=== PATIENT | male | born 1980 | race Caucasian/White ===

== ENCOUNTER 2017-07-21 12:43 | Emergency (ER) | payer OTHER, SELFPAY ==
--- NOTE | 2017-07-21 14:34 | ER ---
Nurse's Notes [facility] Name: Tyree Nicole Age: 37 yrs Sex: Male : 1980 Arrival Date: 07/21/2017 Time: 12:45 Bed 23 Private MD: None, None Diagnosis: Dermatitis, unspecified;Unspecified psychosis not due to a substance or known physiological condition Presentation: 07/21 12:56 Presenting complaint: Patient states: "There are worms in my skin. I think it's from aj the beach at [place]." Patient has small sores noted to bilateral forearms. Transition of care: patient was not received from another setting of care. Onset of symptoms was July 21, 2017. Risk Assessment: Do you want to hurt yourself or someone else? Patient reports no desire to harm self or others. Initial Sepsis Screen: Does the patient meet any 2 criteria? No. Patient's initial sepsis screen is negative. Does the patient have a suspected source of infection? No. Patient's initial sepsis screen is negative. Care prior to arrival: None. 12:56 Method Of Arrival: Ambulatory 12:56 Acuity: ANDREW 5 Triage Assessment: 12:57 General: Appears in no apparent distress. comfortable, Behavior is anxious. Neuro: Level of Consciousness is awake, alert, obeys commands, Oriented to person, place, time, situation, Appropriate for age. Respiratory: Airway is patent Respiratory effort is even, unlabored, Respiratory pattern is regular, symmetrical. Derm: Skin is intact, is healthy with good turgor, Skin is pink, warm \\T\\ dry. normal. Historical: - Allergies: 12:57 No Known Allergies; aj - Home Meds: 12:57 None [Active]; aj - PMHx: 12:57 Hepatitis; - PSHx: 12:57 None; aj - Immunization history:: Last tetanus immunization: unknown. - Social history:: Smoking status: Patient uses tobacco products, smokes two packs cigarettes per day. Patient uses street drugs, marijuana, Methamphetamine (Meth) Patient uses street drugs, IV drugs, heroin. - Ebola Screening: : Patient negative for fever greater than or equal to 101.5 degrees Fahrenheit, and additional compatible Ebola Virus Disease symptoms Patient denies exposure to infectious person Patient denies travel to an Ebola-affected area in the 21 days before illness onset No symptoms or risks identified at this time. Screenin:32 Abuse screen: Denies threats or abuse. Denies injuries from another. Nutritional aj1 screening: No deficits noted. Tuberculosis screening: No symptoms or risk factors identified. Fall Risk None identified. Assessment: 14:32 General: Appears in no apparent distress. uncomfortable, Behavior is cooperative, aj1 anxious. Pain: Complains of pain in right arm, left arm, right leg and left leg Pain currently is 8 out of 10 on a pain scale. Neuro: Level of Consciousness is awake, alert, obeys commands, Oriented to person, place, time, situation, Speech is normal, Facial symmetry appears normal. Cardiovascular: Patient's skin is warm and dry. Respiratory: Airway is patent Respiratory effort is even, unlabored, Respiratory pattern is regular, symmetrical. GI: No signs and/or symptoms were reported involving the gastrointestinal system. : No signs and/or symptoms were reported regarding the genitourinary system. EENT: No signs and/or symptoms were reported regarding the EENT system. Derm: multiple small wounds to bilateral arms and legs. Patient states that he has worms coming out of the sores. Musculoskeletal: No signs and/or symptoms reported regarding the musculoskeletal system. Circulation, motion, and sensation intact. Vital Signs: 12:57 BP 131 / 91; Pulse 101; Resp 16; Temp 98.4; Pulse Ox 97% on R/A; Weight 77.11 kg; aj Height 5 ft. 7 in. (170.18 cm); 12:57 Body Mass Index 26.63 (77.11 kg, 170.18 cm) aj ED Course: 12:45 Patient arrived in ED. sb2 12:45 None, None is Private Physician. sb2 12:57 Triage completed. aj 12:57 Arm band placed on left wrist. Patient placed in waiting room, Patient notified of wait aj time. 14:10 April Garcia, JAE is Primary Nurse. aj1 14:15 Jluis Lezama MD is Attending Physician. 14:32 Patient has correct armband on for positive identification. Bed in low position. Call aj1 light in reach. Side rails up X 1. 14:32 No provider procedures requiring assistance completed. aj1 Administered Medications: No medications were administered Outcome: 14:34 Discharge ordered by . 14:37 Discharged to home ambulatory. aj1 14:37 Condition: good 14:37 Discharge instructions given to no one, patient left prior to receiving discharge instructions. Dr. Lezama states he gave patient verbal discharge instructions 14:38 Patient left the ED. aj1 Signatures: April Garcia RN RN Haylie Bartlett RN RN aj Starr, Gregory, MD MD gs Billeau, Sheri 2
[2017-07-21 14:42] VITALS: BP 131/91; TEMP 98.4; O2SAT 97
--- NOTE | 2017-07-22 14:39 | EDPHYS ---
Physician Documentation [facility] Name: Tyree Nicole Age: 37 yrs Sex: Male : 1980 Arrival Date: 07/21/2017 Time: 12:45 Bed 23 Private MD: None, None ED Physician Jluis Lezama HPI: 07/21 14:38 This 37 yrs old Male presents to ER via Ambulatory with complaints of Psych gs Problem. 14:38 The patient presents to the emergency department with paranoia, psychosis, has gs delusions. Onset: The symptoms/episode began/occurred at an unknown time. Associated signs and symptoms: Pertinent negatives: abdominal pain, hallucinations, homicidal ideation, suicide ideation. Severity of symptoms: At their worst the symptoms were moderate in the emergency department the symptoms are unchanged. The patient has experienced similar episodes in the past, a few times. HAS LESIONS ON ARMS SMALL SCABS BOTH FOREARMS. PT INSISTS THERE ARE ORGANISMS CRAWLING OUT OF THE NOT CURRENTLY BUT YESTERDAY AND IN PAST. USED FORECEP BY HIMSELF DIGGING AT SCABS NO ORGANISMS NOTED. Historical: - Allergies: 12:57 No Known Allergies; aj - Home Meds: 12:57 None [Active]; aj - PMHx: 12:57 Hepatitis; aj - PSHx: 12:57 None; aj - Immunization history:: Last tetanus immunization: unknown. - Social history:: Smoking status: Patient uses tobacco products, smokes two packs cigarettes per day. Patient uses street drugs, marijuana, Methamphetamine (Meth) Patient uses street drugs, IV drugs, heroin. - Ebola Screening: : Patient negative for fever greater than or equal to 101.5 degrees Fahrenheit, and additional compatible Ebola Virus Disease symptoms Patient denies exposure to infectious person Patient denies travel to an Ebola-affected area in the 21 days before illness onset No symptoms or risks identified at this time. ROS: 14:38 All other systems are negative. gs Exam: 14:38 Head/Face: Normocephalic, atraumatic. Eyes: Pupils equal round and reactive to light, gs extra-ocular motions intact. Lids and lashes normal. Conjunctiva and sclera are non-icteric and not injected. Cornea within normal limits. Periorbital areas with no swelling, redness, or edema. ENT: Nares patent. No nasal discharge, no septal abnormalities noted. Tympanic membranes are normal and external auditory canals are clear. Oropharynx with no redness, swelling, or masses, exudates, or evidence of obstruction, uvula midline. Mucous membranes moist. Neck: Trachea midline, no thyromegaly or masses palpated, and no cervical lymphadenopathy. Supple, full range of motion without nuchal rigidity, or vertebral point tenderness. No Meningismus. Chest/axilla: Normal chest wall appearance and motion. Nontender with no deformity. No lesions are appreciated. Cardiovascular: Regular rate and rhythm with a normal S1 and S2. No gallops, murmurs, or rubs. Normal PMI, no JVD. No pulse deficits. Respiratory: Lungs have equal breath sounds bilaterally, clear to auscultation and percussion. No rales, rhonchi or wheezes noted. No increased work of breathing, no retractions or nasal flaring. Abdomen/GI: Soft, non-tender, with normal bowel sounds. No distension or tympany. No guarding or rebound. No evidence of tenderness throughout. Back: No spinal tenderness. No costovertebral tenderness. Full range of motion. MS/ Extremity: Pulses equal, no cyanosis. Neurovascular intact. Full, normal range of motion. Neuro: Awake and alert, GCS 15, oriented to person, place, time, and situation. Cranial nerves II-XII grossly intact. Motor strength 5/5 in all extremities. Sensory grossly intact. Cerebellar exam normal. Normal gait. 14:38 Constitutional: The patient appears alert, awake. 14:38 Skin: contact dermatitis, CRUSTY, SEVERITY MILD TO FOREARMS AND HANDS. 14:38 Neuro: Orientation: to person, place, time \T\ situation. Mentation: lucid, Motor: moves all fours. 14:38 Psych: Behavior/mood is pleasant, Oriented to person, place, time, Patient has no thoughts/intents to harm self or others. Judgement / Insight is impaired. Delusions/hallucinations are present and described as BUGS UNDER SKIN SINCE HURRICANE. Vital Signs: 12:57 BP 131 / 91; Pulse 101; Resp 16; Temp 98.4; Pulse Ox 97% on R/A; Weight 77.11 kg; aj Height 5 ft. 7 in. (170.18 cm); 12:57 Body Mass Index 26.63 (77.11 kg, 170.18 cm) aj MDM: 14:30 Patient medically screened. gs Administered Medications: No medications were administered Disposition: 07/21/17 14:34 Discharged to Home. Impression: Dermatitis, unspecified, Unspecified psychosis not due to a substance or known physiological condition. - Condition is Stable. - Discharge Instructions: Rash, [id number], Psychosis. - Prescriptions for Triamcinolone Acetonide 0.5 % Topical Cream - apply 1 application by TOPICAL route 2 times per day As needed; 1 tube. - Medication Reconciliation Form, Thank You Letter, Antibiotic Education, Prescription Opioid Use form. - Follow up: Private Physician; When: 2 - 3 days; Reason: Re-evaluation by your physician. Signatures: April Garcia RN RN aj1 Haylie Jules RN RN aj Jluis Lezama MD MD gs Corrections: (The following items were deleted from the chart) 14:38 14:34 07/21/2017 14:34 Discharged to Home. Impression: Dermatitis, unspecified; aj1 Unspecified psychosis not due to a substance or known physiological condition. Condition is Stable. Forms are Medication Reconciliation Form, Thank You Letter, Antibiotic Education, Prescription Opioid Use. Follow up: Private Physician; When: 2 - 3 days; Reason: Re-evaluation by your physician. gs
== END 2017-07-21 14:38 | disposition home or self-care (01) ==
LOC: ER 12:43
DX: L30.9 Dermatitis, unspecified (principal)
CPT/HCPCS: 99281

== ENCOUNTER 2019-03-30 20:03 | Emergency (ER) | payer SELFPAY ==
--- OUTSIDE RECORDS SUMMARY | 2019-03-30 20:06 | XMS REPORT ---
:1980 [facility] Address [address] [place] [address] Dr. Devlin [address] [place] [id number] Care Team Providers Name Role Phone Unavailable Unavailable Unavailable Problems This patient has no known problems. Allergies, Adverse Reactions, Alerts This patient has no known allergies or adverse reactions. Medications This patient has no known medications.
[2019-03-30] MEDS ORDERED: DIPHENHYDRAMINE 50 MG/ML VIAL ONE (20:19)
[2019-03-30] MEDS ORDERED: NA CHLORIDE 0.9% 1,000 ML ONE ×2 (20:20→22:01)
[2019-03-30] MEDS ORDERED: ZIPRASIDONE MESYLA 20 MG/VIAL IM ONE (20:20)
[2019-03-30] MEDS ORDERED: WATER FOR INJ,STERILE 10 ML ONE (20:21)
[2019-03-30 20:39] LABS: Absolute Lymphocytes (CBC) 1.3 K/uL (0.7-4.9); Basophils % 0.4 % (0-1.3); Hematocrit 44.8 % (39.6-49.0); Lymphocytes % 12.4 % (15.3-44.8); MPV 8.7 fL (7.6-11.3); RBC Red Blood Cell Count 4.91 M/uL (4.33-5.43)
[2019-03-30 20:44] LABS: Protime INR 1.17
[2019-03-30 20:50] LABS: AST/SGOT 203 U/L (15-37); Albumin 4.1 g/dL (3.4-5.0); Alkaline Phosphatase 129 U/L (45-117); BUN Blood Urea Nitrogen 25 mg/dL (7-18); Bicarbonate 26 mmol/L (21-32); Bilirubin Direct 0.4 mg/dL (0-0.2); Bilirubin Total 1.3 mg/dL (0.2-1.0); Glucose Level 82 mg/dL (74-106); Potassium 4.4 mmol/L (3.5-5.1); Protein, Total 8.2 g/dL (6.4-8.2); Sodium Level 140 mmol/L (136-145)
[2019-03-30 20:54] LABS: ALT/SGPT 303 U/L (12-78)
[2019-03-30] MEDS ORDERED: LORazepam 2 MG/ML VIAL ONE (20:59)
[2019-03-31 00:13] LABS: Lipase 45 U/L (73-393)
[2019-03-31] MEDS ORDERED: NA CHLORIDE 0.9% 1,000 ML ONE ×3 (00:46→07:20)
[2019-03-31 04:57] LABS: Barbiturates NEGATIVE (NEGATIVE); Benzodiazepines NEGATIVE (NEGATIVE); Cocaine NEGATIVE (NEGATIVE); METHAMPHETAM POSITIVE (NEGATIVE); Methadone NEGATIVE (NEGATIVE); Opiates NEGATIVE (NEGATIVE); Phencyclidine NEGATIVE (NEGATIVE); THC Cannibis POSITIVE (NEGATIVE)
--- NOTE | 2019-03-31 06:25 | EKG ---
Test Date: 2019-03-30 Test Time: 20:08:23 Schedule Hanger: KATTY MEASUREMENT RESULTS: Intervals: Rate: 123 SC: 132 QRSD: 76 QT: 286 QTc: 409 [place]: P: 71 SC: 132 QRS: -37 T: 55 INTERPRETIVE STATEMENTS: Sinus tachycardia Left axis deviation Low voltage QRS Abnormal ECG Compared to ECG 10/24/2011 14:01:11 Left-axis deviation now present Low QRS voltage now present Sinus rhythm no longer present Electronically Signed On 03-31-19 06:24:39 TORPEDO WORKER by Nik Dietrich
--- NOTE | 2019-03-31 08:36 | ER ---
Nurse's Notes [facility] Name: Tyree Nicole Age: 38 yrs Sex: Male : 1980 Arrival Date: 03/30/2019 Time: 20:05 Bed 7 Private MD: Diagnosis: Drug abuse counseling and surveillance;Adverse effect of amphetamines Presentation: 03/30 20:05 Presenting complaint: EMS states: they were toned out by [facility] Department for bb report of pt under the influence of unknown substance pt was found in someone's yard and that person called the PD who then called EMS pt was brought to ED handcuffed with no officer in attendance. EMS reports "pt is not in (police) custody". Transition of care: patient was not received from another setting of care. Onset of symptoms was March 30, 2019. Risk Assessment: Do you want to hurt yourself or someone else? Unable to obtain. Initial Sepsis Screen: Does the patient meet any 2 criteria? No. Patient's initial sepsis screen is negative. Does the patient have a suspected source of infection? No. Patient's initial sepsis screen is negative. Care prior to arrival: None. 20:05 Method Of Arrival: EMS: [facility] bb 20:05 Acuity: ANDREW 2 bb Historical: - Allergies: 20:12 Unable to obtain; bb - Home Meds: 20:12 Unable to obtain [Active]; bb - PMHx: 20:12 Hepatitis; bb - PSHx: 20:12 Unable to obtain; bb - Immunization history:: Adult Immunizations unknown. - Coronavirus screen:: The patient has NOT traveled to [place], [place], or [place] in the past 14 days. Proceed with normal triage process as indicated. - Social history:: Smoking status: unknown Patient uses street drugs. - Ebola Screening: : No symptoms or risks identified at this time. Screenin:34 Abuse screen: Denies threats or abuse. Nutritional screening: No deficits noted. ea Tuberculosis screening: No symptoms or risk factors identified. Fall Risk IV access (20 points). Assessment: 20:29 General: Appears uncomfortable, unkempt, Behavior is anxious, restless. Pain: Complains ea of pain in umbilical area, right lower quadrant and left lower quadrant. Neuro: Level of Consciousness is awake, alert, Oriented to person. Cardiovascular: Patient's skin is warm and dry. Respiratory: Airway is patent Respiratory effort is even, unlabored, Respiratory pattern is regular, symmetrical. Derm: Skin is pink, warm \\T\\ dry. 21:55 Reassessment: Patient and/or family updated on plan of care and expected duration. Pain ea level reassessed. Pt resting with eyes closed, respirations even and unlabored, chest expansions even and symmetrical. No s/s of pain or discomfort noted at this time. 22:21 Reassessment: Patient and/or family updated on plan of care and expected duration. Pain ea level reassessed. Pt resting with eyes closed, respirations even and unlabored. Chest expansions even and symmetrical. No s/s of pain or discomfort noted at this time. Pt returned from CT. 23:13 Reassessment: Patient and/or family updated on plan of care and expected duration. Pain ea level reassessed. Pt resting with eyes closed, respirations even and unlabored. Chest expansions even and symmetrical. No s/s of pain or discomfort noted at this time. 03/31 00:20 Reassessment: Patient and/or family updated on plan of care and expected duration. Pain ea level reassessed. Pt resting with eyes closed, respirations even and unlabored. Chest expansions even and symmetrical. No s/s of pain or discomfort noted at this time. 01:42 Reassessment: Patient and/or family updated on plan of care and expected duration. Pain ea level reassessed. Pt resting with eyes closed, respirations even and unlabored. Chest expansions even and symmetrical. No s/s of pain or discomfort at this time. 02:56 Reassessment: Patient and/or family updated on plan of care and expected duration. Pain ea level reassessed. Pt resting with eyes closed, respirations even and unlabored, chest expansions even and unlabored. No s/s of pain or discomfort noted at this time. 03:45 Reassessment: Patient and/or family updated on plan of care and expected duration. Pain ea level reassessed. Pt resting with eyes closed, respirations even and unlabored. Chest expansions even and symmetrical. no s/s of pain or discomfort noted at this time. 04:33 Reassessment: Patient and/or family updated on plan of care and expected duration. Pain ea level reassessed. Patient is alert, oriented x 3, equal unlabored respirations, skin warm/dry/pink. Patient states feeling better. 05:26 Reassessment: Patient and/or family updated on plan of care and expected duration. Pain ea level reassessed. Patient is alert, oriented x 3, equal unlabored respirations, skin warm/dry/pink. 06:39 Reassessment: Patient and/or family updated on plan of care and expected duration. Pain ea level reassessed. Patient is alert, oriented x 3, equal unlabored respirations, skin warm/dry/pink. Patient states feeling better. 07:19 Reassessment: Patient appears in no apparent distress at this time. Pt asleep w/ even ph and unlabored respirations, VSS, additional IV fluids given per ERP order, see MAR. Vital Signs: 03/30 20:12 BP 109 / 88; Pulse 144; Resp 20 S; Pulse Ox 98% on R/A; Weight 88.45 kg (R); bb 21:23 BP 115 / 70; Pulse 116; Resp 20; Pulse Ox 95% on R/A; ea 22:23 BP 117 / 76; Pulse 106; Resp 16; Temp 97.8; Pulse Ox 95% on R/A; ea 23:14 BP 96 / 70; Pulse 104; Resp 17; Pulse Ox 95% on R/A; ea 03/31 00:21 BP 103 / 61; Pulse 97; Resp 18; Pulse Ox 97% ; ea 01:41 BP 101 / 74; Pulse 92; Resp 18; Pulse Ox 99% on R/A; ea 02:57 BP 110 / 95; Pulse 69; Resp 18; Pulse Ox 100% on R/A; ea 03:44 BP 110 / 65; Pulse 95; Resp 16; Pulse Ox 97% on R/A; ea 04:06 BP 113 / 72; Pulse 94; Resp 18; Pulse Ox 100% ; ea 04:33 BP 114 / 83; Pulse 79; Resp 18; Pulse Ox 99% on R/A; ea 05:25 BP 123 / 84; Pulse 80; Resp 18; Temp 98; Pulse Ox 100% on R/A; ea 06:39 BP 109 / 59; Pulse 106; Resp 16; Pulse Ox 100% ; ea 07:20 BP 104 / 59; Pulse 107; Resp 24; Pulse Ox 100% on R/A; ph ED Course: 03/30 20:05 Patient arrived in ED. bb 20:08 Dorian Kelly PA is PHCP. cp 20:08 Andrés Copeland MD is Attending Physician. cp 20:10 Patient has correct armband on for positive identification. Placed in gown. Bed in low rr5 position. breaker up on. Pulse ox on. NIBP on. 20:10 Inserted saline lock: 20 gauge in left forearm, using aseptic technique. Blood rr5 collected. 20:12 Triage completed. bb 20:12 Arm band placed on Patient placed in an exam room, on a stretcher, on diagnostic sales specialist, bb on pulse oximetry. EKG completed in triage. Results shown to MD. 20:14 Tami Parkinson, JAE is Primary Nurse. ea 20:15 Inserted saline lock: 20 gauge in right forearm, using aseptic technique. ,using rr5 aseptic technique. inserted by Tami Spicer. 22:15 CT completed. Patient tolerated procedure well. Patient moved back from CT. bq 22:40 Abdomen In Process Unspecified. EDMS Administered Medications: 20:13 Drug: Ativan 2 mg Route: IM; Site: right deltoid; bb 20:38 Follow up: Response: No adverse reaction ea 20:22 Drug: NS 0.9% 1000 ml Route: IV; Rate: 1 bolus; Site: left forearm; ea 21:38 Follow up: Response: No adverse reaction; IV Status: Completed infusion; IV Intake: ea 1000ml 20:29 Drug: Geodon 10 mg Route: IM; Site: left deltoid; ea 21:38 Follow up: Response: No adverse reaction ea 20:29 Drug: Benadryl 25 mg Route: IM; Site: left deltoid; ea 21:38 Follow up: Response: No adverse reaction ea 21:59 Drug: NS 0.9% 1000 ml Route: IV; Rate: 1 bolus; Site: left forearm; ea 23:16 Follow up: Response: No adverse reaction; IV Status: Completed infusion; IV Intake: ea 1000ml 03/31 00:00 Drug: NS 0.9% 1000 ml Route: IV; Rate: 500 ml/hr; Site: left forearm; ea 00:44 Drug: NS 0.9% 1000 ml Route: IV; Rate: 100 ml/hr; Site: right forearm; rr5 Intake: 03/30 21:38 IV: 1000ml; Total: 1000ml. ea 23:16 IV: 1000ml; Total: 2000ml. evelyne Outcome: 03/31 08:34 Discharge ordered by . rn 09:24 Patient left the ED. ph Signatures: Dispatcher [employer] EDAimee Chow Brenda, RN RN Kaz Encarnacion MD MD rn Hall, Patricia, RN RN Dorian Langston PA PA cp Antunez, Elena, RN RN ea Roque, Raymond RN RN rr5 Corrections: (The following items were deleted from the chart) 03/30 20:19 20:17 Abuse screen: rr5 rr5 03/31 05:26 05:25 BP 238 / 4; Pulse 80bpm; Resp 18bpm; Pulse Ox 100% RA; Temp 98F; evelyne stubbs
--- NOTE | 2019-03-31 08:37 | EDPHYS ---
Physician Documentation [facility] Name: Tyree Nicole Age: 38 yrs Sex: Male : 1980 Arrival Date: 03/30/2019 Time: 20:05 Bed 7 Private MD: ED Physician Andrés Copeland HPI: 03/30 20:35 This 38 yrs old Male presents to ER via EMS with complaints of Drug Abuse. cp 20:35 The patient presents with confusion. cp 20:35 Possible causes: drug use, amphetamines. Associated signs and symptoms: Pertinent cp positives: abdominal pain, agitation, visual hallucinations, Pertinent negatives: chest pain, headache, vomiting. Current symptoms: In the emergency department the patient's symptoms are unchanged from the initial presentation, despite EMS interventions. 20:35 Patient admits to using methamphetamine today that may have contained PCP. cp Historical: - Allergies: 20:12 Unable to obtain; bb - Home Meds: 20:12 Unable to obtain [Active]; bb - PMHx: 20:12 Hepatitis; bb - PSHx: 20:12 Unable to obtain; bb - Immunization history:: Adult Immunizations unknown. - Coronavirus screen:: The patient has NOT traveled to [place], [place], or [place] in the past 14 days. Proceed with normal triage process as indicated. - Social history:: Smoking status: unknown Patient uses street drugs. - Ebola Screening: : No symptoms or risks identified at this time. ROS: 20:40 Constitutional: Negative for fever, poor PO intake. cp 20:40 Eyes: Negative for injury, pain, redness, and discharge. cp 20:40 Cardiovascular: Negative for chest pain. cp 20:40 Abdomen/GI: Positive for abdominal pain, Negative for vomiting, diarrhea, constipation. 20:40 Neuro: Positive for altered mental status. 20:40 Psych: Positive for visual hallucinations. 20:40 All other systems are negative. cp Exam: 20:15 ECG was reviewed by the Attending Physician. cp 20:45 Constitutional: The patient appears in no acute distress, alert, awake, non-toxic, well cp developed, well nourished. 20:45 Head/Face: Normocephalic, atraumatic. cp 20:45 Eyes: Periorbital structures: appear normal, Pupils: equal, round, and reactive to light and accomodation, Conjunctiva: normal, no exudate, no injection, Sclera: no appreciated abnormality, Lids and lashes: appear normal, bilaterally. 20:45 ENT: External ear(s): are unremarkable, Nose: is normal, Mouth: Lips: moist, Oral mucosa: moist, Posterior pharynx: Airway: no evidence of obstruction, patent. 20:45 Neck: ROM/movement: Meningeal signs: are not present, nuchal rigidity, is not appreciated. 20:45 Chest/axilla: Inspection: normal, Palpation: is normal, no crepitus, no tenderness. 20:45 Cardiovascular: Rate: tachycardic, Rhythm: regular, Edema: is not appreciated, JVD: is not appreciated. 20:45 Respiratory: the patient does not display signs of respiratory distress, Respirations: cp normal, no use of accessory muscles, no retractions, no splinting, no tachypnea, labored breathing, is not present, accessory muscle usage, is absent, Breath sounds: are clear throughout, no decreased breath sounds, no stridor, no wheezing. 20:45 Abdomen/GI: Inspection: abdomen appears normal, Bowel sounds: active, all quadrants, cp Palpation: soft, in all quadrants, moderate abdominal tenderness, in all quadrants, rebound tenderness, is not appreciated, voluntary guarding, is elicited in all quadrants. 20:45 Back: pain, is absent, ROM is normal. 20:45 Neuro: Orientation: to person, Motor: moves all fours, strength is normal. 20:45 Psych: Behavior/mood is aggressive, uncooperative, Affect is animated, Patient has no thoughts/intents to harm self or others. Judgement / Insight is impaired. Delusions/hallucinations are present and described as complaining of insects crawling on him. Vital Signs: 20:12 BP 109 / 88; Pulse 144; Resp 20 S; Pulse Ox 98% on R/A; Weight 88.45 kg (R); bb 21:23 BP 115 / 70; Pulse 116; Resp 20; Pulse Ox 95% on R/A; ea 22:23 BP 117 / 76; Pulse 106; Resp 16; Temp 97.8; Pulse Ox 95% on R/A; ea 23:14 BP 96 / 70; Pulse 104; Resp 17; Pulse Ox 95% on R/A; ea 03/31 00:21 BP 103 / 61; Pulse 97; Resp 18; Pulse Ox 97% ; ea 01:41 BP 101 / 74; Pulse 92; Resp 18; Pulse Ox 99% on R/A; ea 02:57 BP 110 / 95; Pulse 69; Resp 18; Pulse Ox 100% on R/A; ea 03:44 BP 110 / 65; Pulse 95; Resp 16; Pulse Ox 97% on R/A; ea 04:06 BP 113 / 72; Pulse 94; Resp 18; Pulse Ox 100% ; ea 04:33 BP 114 / 83; Pulse 79; Resp 18; Pulse Ox 99% on R/A; ea 05:25 BP 123 / 84; Pulse 80; Resp 18; Temp 98; Pulse Ox 100% on R/A; ea 06:39 BP 109 / 59; Pulse 106; Resp 16; Pulse Ox 100% ; ea 07:20 BP 104 / 59; Pulse 107; Resp 24; Pulse Ox 100% on R/A; ph MDM: 03/30 20:10 Patient medically screened. cp 03/31 08:30 Differential Diagnosis: electrolyte abnormality, alcohol intoxication, overdose, volume rn depletion. Data reviewed: vital signs, nurses notes, lab test result(s), EKG, and as a result, I will discharge patient. Counseling: I had a detailed discussion with the patient and/or guardian regarding: the historical points, exam findings, and any diagnostic results supporting the discharge/admit diagnosis, lab results, the need for outpatient follow up, to return to the emergency department if symptoms worsen or persist or if there are any questions or concerns that arise at home. Response to treatment: the patient's symptoms have markedly improved after treatment. ED course: Pt awake and sober, is asking for food, states feels much better, admits to using drugs last night, denies pain, denies suicidal or homicidal ideation. Will dc home. . 03/30 20:09 Order name: Acetaminophen; Complete Time: 00:34 cp 03/30 20:09 Order name: Basic Metabolic Panel; Complete Time: 00:34 cp 03/30 21:46 Interpretation: Normal except: BUN 25; CRE 1.63; GFR 48. cp 03/30 20:09 Order name: CBC with Diff; Complete Time: 21:45 cp 03/30 21:46 Interpretation: Normal except: PLT 143; BECK% 75.5; LYM% 12.4. cp 03/30 20:09 Order name: ETOH Level; Complete Time: 21:44 cp 03/30 20:09 Order name: Hepatic Function; Complete Time: 00:34 cp 02 21:46 Interpretation: Normal except: AST 203; ALT 303; ALK 129; BILIT 1.3; BILID 0.4; GLOB cp 4.1; A/G 1.0. 02 20:09 Order name: PT-INR; Complete Time: 21:44 cp 03/30 20:09 Order name: Ptt, Activated; Complete Time: 21:44 cp 03/30 20:09 Order name: Salicylate; Complete Time: 21:44 cp 02 20:09 Order name: Urine Drug Screen; Complete Time: 07:12 cp 02/ 20:19 Order name: Glucose, Ancillary Testing; Complete Time: 21:44 EDMS 02 21:55 Order name: Abdomen EDMS 0208 23:46 Order name: Lipase; Complete Time: 00:34 EDMS 02 00:38 Interpretation: LIP 45; Reviewed. cp 03/30 20:09 Order name: EKG; Complete Time: 20:11 cp 03/30 20:09 Order name: EKG - Nurse/Tech; Complete Time: 20:18 cp 03/30 20:09 Order name: IV Saline Lock; Complete Time: 20:18 cp 03/30 20:09 Order name: Labs collected and sent; Complete Time: 20:18 cp 03/30 20:09 Order name: Urine Dipstick-Ancillary (obtain specimen); Complete Time: 04:24 cp EC/08 20:15 Rate is 123 beats/min. Rhythm is regular. CT interval is normal. QRS interval is cp normal. QT interval is normal. Interpreted by me. Reviewed by me. Administered Medications: 20:13 Drug: Ativan 2 mg Route: IM; Site: right deltoid; bb 20:38 Follow up: Response: No adverse reaction ea 20:22 Drug: NS 0.9% 1000 ml Route: IV; Rate: 1 bolus; Site: left forearm; ea 21:38 Follow up: Response: No adverse reaction; IV Status: Completed infusion; IV Intake: ea 1000ml 20:29 Drug: Geodon 10 mg Route: IM; Site: left deltoid; ea 21:38 Follow up: Response: No adverse reaction ea 20:29 Drug: Benadryl 25 mg Route: IM; Site: left deltoid; ea 21:38 Follow up: Response: No adverse reaction ea 21:59 Drug: NS 0.9% 1000 ml Route: IV; Rate: 1 bolus; Site: left forearm; ea 23:16 Follow up: Response: No adverse reaction; IV Status: Completed infusion; IV Intake: ea 1000ml 03/31 00:00 Drug: NS 0.9% 1000 ml Route: IV; Rate: 500 ml/hr; Site: left forearm; ea 00:44 Drug: NS 0.9% 1000 ml Route: IV; Rate: 100 ml/hr; Site: right forearm; rr5 Disposition: 04/01 07:21 Co-signature as Attending Physician, Andrés Copeland MD I agree with the assessment and tw4 plan of care. Disposition: 03/31/19 08:34 Discharged to Home. Impression: Drug abuse counseling and surveillance, Adverse effect of amphetamines. - Condition is Stable. - Discharge Instructions: Stimulant Use Disorder-Methamphetamines. - Medication Reconciliation Form, Thank You Letter, Antibiotic Education, Prescription Opioid Use form. - Follow up: Private Physician; When: As needed; Reason: Recheck today's complaints, Re-evaluation by your physician. - Problem is new. - Symptoms have improved. Signatures: Dispatcher [employer] EDFunmi Desouza, RN RN Kaz Encarnacion MD MD rn Hall, Patricia, RN RN ph Page, Corey, PA PA cp Antunez, Elena, RN RN ea Wadley, Terrence, MD MD tw4 Franko Spencer RN RN rr5 Corrections: (The following items were deleted from the chart) 03/30 21:55 21:48 Abdomen Pelvis W Con+CT.RAD.BRZ ordered. EDGA EDMS 23:58 23:45 LIPASE+C.LAB.BRZ ordered. EDGA EDGA 03/31 09:24 08:34 03/31/2019 08:34 Discharged to Home. Impression: Drug abuse counseling and ph surveillance; Adverse effect of amphetamines. Condition is Stable. Forms are Medication Reconciliation Form, Thank You Letter, Antibiotic Education, Prescription Opioid Use. Follow up: Private Physician; When: As needed; Reason: Recheck today's complaints, Re-evaluation by your physician. Problem is new. Symptoms have improved. rn
[2019-03-31 09:46] VITALS: TEMP 98; O2SAT 100
[2019-03-31 09:48] VITALS: BP 104/59
--- NOTE | 2019-04-01 10:32 | RAD REPORT ---
EXAM DESCRIPTION: Abdomen Pelvis Wo Contrast CLINICAL HISTORY: 38 years Male ABD PAIN COMPARISON: None. TECHNIQUE: Contiguous axial images obtained through the abdomen and pelvis without IV contrast. Refo rmatted images obtained. This exam was performed according to our department optimization program which includes automated exp osure control, adjustment of the mA and/or kv according to patient size and/or use of iterative recon struction technique. FINDINGS: There is some artifact on the images from motion and from the patient's overlying arms. Dependent atelectatic changes. The liver appears unremarkable. The spleen is mildly prominent measuring approximately 13.5 cm in length. The pancreas appears unremarkable. No adrenal masses. There are nonobstructing lower pole right renal calculi. No hydronephrosis or ureteral calculi. The gallbladder is visualized. No aneurysmal dilatation of the aorta. The rectum is slightly distended with stool. No bowel obstruction. The appendix is not visualized sec ondary to previous appendectomy. No significant free pelvic fluid. IMPRESSION: The rectum is slightly distended with stool which could be from constipation. There are nonobstructing lower pole right renal calculi. No hydronephrosis or ureteral calculi. Mildly prominent spleen. Electronically signed by: Jabari Love MD 03/30/2019 10:58 PM COMMUNITY RELATIONS REPRESENTATIVE Due to temporary technical issues with the PACS/Fluency reporting system, reports are being signed by the in house radiologist as a courtesy to ensure prompt reporting. The interpreting radiologist is f ully responsible for the content of the report.
== END 2019-03-31 09:24 | disposition home or self-care (01) ==
LOC: ER 20:03
DX: R44.1 Visual hallucinations (principal); T43.625A Adverse effect of amphetamines, initial encounter; Z71.51 Drug abuse counseling and surveillance of drug abuser
CPT/HCPCS: 36415; 74176; 80048; 80076; 80307; 80320; 80329; 82947; 83690; 85025; 85610; 85730; 93005; 96360; 96361; 96372; 99285; J1200; J3486; J7030

== ENCOUNTER 2019-04-02 03:16 | Emergency (ER) | payer SELFPAY ==
--- OUTSIDE RECORDS SUMMARY | 2019-04-02 03:18 | XMS REPORT ---
:1980 [facility] Address [address] [place] [address] Dr. Devlin [address] [place] [id number] Care Team Providers Name Role Phone Unavailable Unavailable Unavailable Problems This patient has no known problems. Allergies, Adverse Reactions, Alerts This patient has no known allergies or adverse reactions. Medications This patient has no known medications.
--- OUTSIDE RECORDS SUMMARY | 2019-04-02 04:31 | XMS REPORT ---
:1980 [facility] Address [address] [place] [address] Dr. Devlin [address] [place] [id number] Care Team Providers Name Role Phone Unavailable Unavailable Unavailable Problems This patient has no known problems. Allergies, Adverse Reactions, Alerts This patient has no known allergies or adverse reactions. Medications This patient has no known medications.
[2019-04-02] MEDS ORDERED: HYDROCODONE/APAP 10/325 TAB ONE (07:39)
[2019-04-02] MEDS ORDERED: TETANUS & DIPHTHERIA TOX,ADULT 0.5 ML VIAL ONE (07:40)
--- NOTE | 2019-04-02 08:48 | EDPHYS ---
Physician Documentation [facility] Name: Tyree Nicole Age: 38 yrs Sex: Male : 1980 Arrival Date: 04/02/2019 Time: 03:24 Bed 2 Private MD: ED Physician Dorian Cobb HPI: 04/02 05:35 This 38 yrs old Male presents to ER via EMS with complaints of agitated tw4 altered mental status. 05:35 The patient presents with agitation, disorientation, to person, to place, to time. tw4 Onset: The symptoms/episode began/occurred today. Possible causes: drug use. Associated signs and symptoms: The patient has no apparent associated signs or symptoms. The patient has not experienced similar symptoms in the past. Historical: - Allergies: 03:36 Unable to obtain; fc - Home Meds: 03:36 Unable to obtain [Active]; fc - PMHx: 03:38 Hepatitis; fc - PSHx: 04/01 21:35 Unable to obtain; fc - Immunization history:: Adult Immunizations unknown. - Coronavirus screen:: The patient has NOT traveled to [place] in the past 14 days. The patient has NOT had contact with known/suspected case of Coronavirus?. - Social history:: Smoking status: unknown. - Ebola Screening: : Unable to complete screening because. ROS: 04/02 05:37 Unable to obtain ROS due to altered mental status. tw4 08:46 Constitutional: Negative for fever, chills, and weight loss, Eyes: Negative for injury, phong pain, redness, and discharge, ENT: Negative for injury, pain, and discharge, Neck: Negative for injury, pain, and swelling, Cardiovascular: Negative for chest pain, palpitations, and edema, Respiratory: Negative for shortness of breath, cough, wheezing, and pleuritic chest pain, Abdomen/GI: Negative for abdominal pain, nausea, vomiting, diarrhea, and constipation, Back: Negative for injury and pain, : Negative for injury, bleeding, discharge, and swelling, Skin: Negative for injury, rash, and discoloration, Neuro: Negative for headache, weakness, numbness, tingling, and seizure, Allergy/Immunology: Negative for hives, rash, and allergies, Endocrine: Negative for neck swelling, polydipsia, polyuria, polyphagia, and marked weight changes, Hematologic/Lymphatic: Negative for swollen nodes, abnormal bleeding, and unusual bruising. 08:46 MS/extremity: Positive for injury or acute deformity, pain, swelling, tenderness, of the medial aspect of right toes, right first toe and Right first toenail. Exam: 05:35 Head/Face: Normocephalic, atraumatic. Chest/axilla: Normal chest wall appearance and tw4 motion. Nontender with no deformity. No lesions are appreciated. Cardiovascular: Regular rate and rhythm with a normal S1 and S2. No gallops, murmurs, or rubs. Normal PMI, no JVD. No pulse deficits. Respiratory: Lungs have equal breath sounds bilaterally, clear to auscultation and percussion. No rales, rhonchi or wheezes noted. No increased work of breathing, no retractions or nasal flaring. Abdomen/GI: Soft, non-tender, with normal bowel sounds. No distension or tympany. No guarding or rebound. No evidence of tenderness throughout. Back: No spinal tenderness. No costovertebral tenderness. Full range of motion. 05:35 Constitutional: The patient appears awake, restless. 05:35 Musculoskeletal/extremity: Extremities: noted in the Left first toenail: abrasion, ROM: intact in all extremities. 05:35 Neuro: Orientation: unable to test, the patient is medicated, Mentation: somnolent, Motor: moves all fours, Sensation: unable to test, the patient is medicated, Gait: not tested. 05:35 Psych: Behavior/mood is aggressive, uncooperative, Affect is Vital Signs: 04/01 21:42 BP 122 / 77; Pulse 130; Resp 18; Temp 101(A); Pulse Ox 97% on R/A; Weight 86.18 kg (R); fc Height 5 ft. 10 in. (177.80 cm) (R); 22:30 BP 110 / 65; Pulse 113; Resp 20; Pulse Ox 97% on R/A; fc 23:30 BP 127 / 74; Pulse 101; Resp 18; Temp 98.0(A); Pulse Ox 98% on R/A; Pain 0/10; fc 04/02 00:55 BP 123 / 76; Pulse 97; Resp 18; Pulse Ox 96% on R/A; Pain 0/10; fc 01:45 BP 132 / 70; Pulse 91; Resp 18; Pulse Ox 98% on R/A; Pain 0/10; fc 02:36 BP 132 / 80; Pulse 92; Resp 16; Temp 98.4(O); Pulse Ox 97% on R/A; Pain 0/10; fc 03:30 BP 101 / 84; Pulse 96; Resp 18; Pulse Ox 97% on R/A; Pain 0/10; aa1 04:15 BP 131 / 66; Pulse 81; Resp 16; Pulse Ox 100% on R/A; Pain 0/10; aa1 05:16 BP 130 / 60; Pulse 81; Resp 16; Temp 98.6; Pulse Ox 97% on R/A; Pain 0/10; aa1 06:15 BP 131 / 66; Pulse 75; Resp 16; Pulse Ox 98% on R/A; Pain 0/10; aa1 09:00 BP 127 / 70; Pulse 72; Resp 16; Temp 98.2; Pulse Ox 98% on R/A; sg 12:00 BP 122 / 62; Pulse 70; Resp 16; Temp 98.2; Pulse Ox 98% on R/A; sg 16:00 BP 116 / 70; Pulse 69; Resp 17; Temp 97.7; Pulse Ox 100% on R/A; sg 02/10 21:42 Body Mass Index 27.26 (86.18 kg, 177.80 cm) fc MDM: 05:33 Patient medically screened. tw4 05:37 Differential Diagnosis: alcohol intoxication, intracranial bleed, overdose. Data tw4 reviewed: vital signs, nurses notes. Counseling: I had a detailed discussion with the patient and/or guardian regarding: the historical points, exam findings, and any diagnostic results supporting the discharge/admit diagnosis. 04/02 05:38 Order name: CT Head Brain wo Cont tw4 04/02 07:31 Order name: Foot Left 3 View XRAY [facility] 04/02 09:10 Order name: RAD EDAK 04/02 09:23 Order name: CT EDAK 04/02 07:30 Order name: Wound Care; Complete Time: 07:36 phong 04/02 07:31 Order name: Diet Regular; Complete Time: 07:33 phong Administered Medications: 07:40 Drug: Tetanus-Diphtheria Toxoid Adult 0.5 ml {Manager Contact: [employer]. Exp: sv 01/18/2021. Lot #: [id number]. } Route: IM; Site: right deltoid; 08:12 Follow up: Response: No adverse reaction sv 07:40 Drug: [place] 10 mg-325 mg 1 tabs {Note: RASS1.} Route: PO; sv 07:41 Drug: Neosporin Ointment 1 application Route: Topical; Site: affected area; sv 15:13 Drug: Motrin 600 mg Route: PO; Disposition: 04/02/19 15:16 Discharged to Home. Impression: Abuse of non-psychoactive substances, Laceration without foreign body, left foot - left great toe. - Condition is Stable. - Medication Reconciliation Form, Thank You Letter, Antibiotic Education, Prescription Opioid Use form. - Follow up: Private Physician; When: 2 - 3 days; Reason: Recheck today's complaints, Continuance of care, Re-evaluation by your physician. Follow up: Dr. Abel Stoll; When: 5 - 6 days; Reason: Recheck today's complaints, Re-evaluation by your physician. - Problem is new. - Symptoms have improved. Signatures: Dispatcher [employer] EDYessica Yuan RN RN sv Gay, Steven, RN RN Dorian Cobb MD MD cha Chretien, Felicia, RN RN Andrés Copeland MD MD tw4 Corrections: (The following items were deleted from the chart) 15:04 08:47 04/02/2019 08:47 Discharged to Home. Impression: Abuse of non-psychoactive ah substances; Laceration without foreign body, left foot - left great toe; Displaced unspecified fracture of left great toe. Condition is Stable. Discharge Instructions: Laceration Care, Adult, Substance Use Disorder, Laceration Care, Adult, [id number], Stimulant Use Disorder-Methamphetamines. Prescriptions for Ibuprofen 600 mg Oral Tablet - take 1 tablet by ORAL route every 6 hours As needed take with food; 20 tablet, Keflex 500 mg Oral Capsule - take 1 capsule by ORAL route every 6 hours for 7 days; 28 capsule. and Forms are Medication Reconciliation Form, Thank You Letter, Antibiotic Education, Prescription Opioid Use. Follow up: Private Physician; When: 2 - 3 days; Reason: Recheck today's complaints, Continuance of care, Re-evaluation by your physician. Follow up: Dr. Abel Stoll; When: 5 - 6 days; Reason: Recheck today's complaints, Re-evaluation by your physician. Problem is new. Symptoms have improved. [facility] 16:58 15:16 04/02/2019 15:16 Discharged to Home. Impression: Abuse of non-psychoactive sg substances; Laceration without foreign body, left foot - left great toe. Condition is Stable. Prescriptions for Ibuprofen 600 mg Oral Tablet - take 1 tablet by ORAL route every 6 hours As needed take with food; 20 tablet, Keflex 500 mg Oral Capsule - take 1 capsule by ORAL route every 6 hours for 7 days; 28 capsule. and Forms are Medication Reconciliation Form, Thank You Letter, Antibiotic Education, Prescription Opioid Use. Follow up: Private Physician; When: 2 - 3 days; Reason: Recheck today's complaints, Continuance of care, Re-evaluation by your physician. Follow up: Dr. Abel Stoll; When: 5 - 6 days; Reason: Recheck today's complaints, Re-evaluation by your physician. Problem is new. Symptoms have improved. [facility]
--- NOTE | 2019-04-02 08:48 | ER ---
Nurse's Notes [facility] Name: Tyree Nicole Age: 38 yrs Sex: Male : 1980 Arrival Date: 04/02/2019 Time: 03:24 Bed 2 Private MD: Diagnosis: Abuse of non-psychoactive substances;Laceration without foreign body, left foot-left great toe Presentation: 04/01 21:35 Presenting complaint: EMS states: pt was found completely naked at a gas station, fc altered and banging his head against the wall. L great toe noted to be bleeding from nailbed. Upon arrival to ED pt awake but no recognizable verbal response. EMS reports pt was combative on scene and was given Versed 5 mg IM and Ketamine 200 mg IM. 21:35 Transition of care: patient was not received from another setting of care. Onset of fc symptoms was April 01, 2019. Risk Assessment: Do you want to hurt yourself or someone else? Unable to obtain. Initial Sepsis Screen: Does the patient meet any 2 criteria? HR > 90 bpm. No. Patient's initial sepsis screen is negative. Does the patient have a suspected source of infection? No. Patient's initial sepsis screen is negative. Care prior to arrival: Medication(s) given: Versed 5 mg IM \T\ Ketamine 200 mg IM IV initiated. 20 GA, in the right forearm, Glucose check: 65. 21:35 Method Of Arrival: EMS: [facility] 21:35 Acuity: ANDREW 2 fc Historical: - Allergies: 04/02 03:36 Unable to obtain; fc - Home Meds: 03:36 Unable to obtain [Active]; fc - PMHx: 03:38 Hepatitis; fc - PSHx: 04/01 21:35 Unable to obtain; fc - Immunization history:: Adult Immunizations unknown. - Coronavirus screen:: The patient has NOT traveled to [place] in the past 14 days. The patient has NOT had contact with known/suspected case of Coronavirus?. - Social history:: Smoking status: unknown. - Ebola Screening: : Unable to complete screening because. Screenin/11 09:00 Abuse screen: Denies threats or abuse. Denies injuries from another. Nutritional sg screening: No deficits noted. Tuberculosis screening: No symptoms or risk factors identified. Never had TB. Fall Risk None identified. Assessment: 03:27 Reassessment: see chart Leonardo Al for all original information and fc who originally charted it along with orders and results. 03:30 Reassessment: Patient appears in no apparent distress at this time. Patient and/or aa1 family updated on plan of care and expected duration. Pain level reassessed. Pt resting quietly; will continue to monitor until appropriate for d/c. Respiratory: Airway is patent Respiratory effort is even, unlabored, Respiratory pattern is regular, symmetrical. Derm: Skin is pink, warm \T\ dry. 04:15 Reassessment: Patient appears in no apparent distress at this time. No changes from aa1 previously documented assessment. Patient and/or family updated on plan of care and expected duration. Pain level reassessed. Pt resting quietly; will continue to monitor. 05:16 Reassessment: Patient appears in no apparent distress at this time. Patient and/or aa1 family updated on plan of care and expected duration. Pain level reassessed. Pt resting quietly; will continue to monitor until appropriate for d/c. 05:16 Reassessment: No changes from previously documented assessment. aa1 06:15 Reassessment: Patient appears in no apparent distress at this time. No changes from aa1 previously documented assessment. Patient and/or family updated on plan of care and expected duration. Pain level reassessed. Pt resting quietly; will continue to monitor until appropriate for d/c. 07:24 Reassessment: Patient appears in no apparent distress at this time. at bedside at this time. 07:39 Reassessment: Patient appears in no apparent distress at this time. xray at bedside. sg 07:41 Reassessment: Xray at the bedside. sv 09:11 Reassessment: Patient appears in no apparent distress at this time. pt to bed sg discharged, pt is unable to perform ADL independently, pt has no transport, will continue to monitor in ED until ready for dispo as ordered. 10:11 Reassessment: Patient appears in no apparent distress at this time. pt laying right sg side lying position with eyes closed, resp even and unlabored, VSS at this time. 13:05 Reassessment: pt requesting to speak with a social worker school to get a list of phone sg numbers for family and friends, pt informed that the family/friends on pt contact sheet have been contacted on his behalf, awaiting call backs from family and friends at this time, pt stated understanding. 13:58 Reassessment: Patient appears in no apparent distress at this time. family attempt to sg be contacted once again, no answer at this time. pt states that he does not feel safe leaving here alone, would like to be able to leave with his aunt Louisa Johansen. 14:35 Reassessment: Patient appears in no apparent distress at this time. pt educated on ss crutch walking, pt to be given a bus pass for transport to his [facility]. 15:00 Reassessment: Patient appears in no apparent distress at this time. reached out to [facility], spoke with Brian, reports the pt is not welcome back at their facility or to use their services until 30 days. Will contact [facility] for pt transport to his aunt, [employer] for cab [id number]. Vital Signs: 04/01 21:42 BP 122 / 77; Pulse 130; Resp 18; Temp 101(A); Pulse Ox 97% on R/A; Weight 86.18 kg (R); fc Height 5 ft. 10 in. (177.80 cm) (R); 22:30 BP 110 / 65; Pulse 113; Resp 20; Pulse Ox 97% on R/A; fc 23:30 BP 127 / 74; Pulse 101; Resp 18; Temp 98.0(A); Pulse Ox 98% on R/A; Pain 0/10; fc 04/02 00:55 BP 123 / 76; Pulse 97; Resp 18; Pulse Ox 96% on R/A; Pain 0/10; fc 01:45 BP 132 / 70; Pulse 91; Resp 18; Pulse Ox 98% on R/A; Pain 0/10; fc 02:36 BP 132 / 80; Pulse 92; Resp 16; Temp 98.4(O); Pulse Ox 97% on R/A; Pain 0/10; fc 03:30 BP 101 / 84; Pulse 96; Resp 18; Pulse Ox 97% on R/A; Pain 0/10; aa1 04:15 BP 131 / 66; Pulse 81; Resp 16; Pulse Ox 100% on R/A; Pain 0/10; aa1 05:16 BP 130 / 60; Pulse 81; Resp 16; Temp 98.6; Pulse Ox 97% on R/A; Pain 0/10; aa1 06:15 BP 131 / 66; Pulse 75; Resp 16; Pulse Ox 98% on R/A; Pain 0/10; aa1 09:00 BP 127 / 70; Pulse 72; Resp 16; Temp 98.2; Pulse Ox 98% on R/A; sg 12:00 BP 122 / 62; Pulse 70; Resp 16; Temp 98.2; Pulse Ox 98% on R/A; sg 16:00 BP 116 / 70; Pulse 69; Resp 17; Temp 97.7; Pulse Ox 100% on R/A; sg 04/01 21:42 Body Mass Index 27.26 (86.18 kg, 177.80 cm) fc ED Course: 04/01 21:40 Patient has correct armband on for positive identification. Bed in low position. Side fc rails up X2. information lead on. Pulse ox on. NIBP on. 21:40 Maintain EMS IV. Dressing intact. Good blood return noted. Site clean \T\ dry. Gauge \T\ fc site: 20g R Forearm. 21:42 Arm band placed on Patient placed on a stretcher. fc 21:46 Missed attempt(s): 22 gauge in right hand. fc 22:17 Dressings: 4X4s X 1; left first toe. fc 22:37 Straight cath inserted, using sterile technique, 16 Fr. Specimen obtained. Returned fc clear yellow urine. Patient tolerated well. 04/02 03:24 Patient arrived in ED. fc 03:35 Triage completed. fc 05:33 Andrés Copeland MD is Attending Physician. tw4 07:20 Attending Physician role handed off by Andrés Copeland MD phong 07:20 Dorian Cobb MD is Attending Physician. phong 07:27 Rom Farooq, RN is Primary Nurse. sg 07:42 CT Head Brain wo Cont Sent. sv 07:44 Wound care: to abrasion. mh5 08:11 Foot Left 3 View XRAY Sent. sv 08:47 Abel Stoll MD is Referral Physician. phong 15:10 No provider procedures requiring assistance completed. IV discontinued, intact, sg bleeding controlled, No redness/swelling at site. Pressure dressing applied. 15:16 Abel Stoll MD is Referral Physician. phong 16:55 Crutch training done. Ortho shoe applied to left foot. sg Administered Medications: 07:40 Drug: Tetanus-Diphtheria Toxoid Adult 0.5 ml {[employer]: [employer]. Exp: sv 01/18/2021. Lot #: [id number]. } Route: IM; Site: right deltoid; 08:12 Follow up: Response: No adverse reaction sv 07:40 Drug: Mclean 10 mg-325 mg 1 tabs {Note: RASS1.} Route: PO; sv 07:41 Drug: Neosporin Ointment 1 application Route: Topical; Site: affected area; sv 15:13 Drug: Motrin 600 mg Route: PO; Outcome: 08:47 Discharge ordered by . [facility] 16:55 Discharged to home via wheelchair. 16:55 Condition: improved 16:55 Discharge instructions given to patient, Instructed on discharge instructions, follow up and referral plans. safety practices, Demonstrated understanding of instructions, follow-up care, medications, wound care, crutch walking, Prescriptions given X 2. 16:58 Patient left the ED. Signatures: Yessica Arenas RN RN Rom Farooq RN Desiree Jaffe RN RN aa1 Dorian Cobb MD MD cha Chretien, Felicia RN Lili Srivastava RN RN Gabrielle Riley [facility] Andrés Copeland MD MD tw4 Corrections: (The following items were deleted from the chart) 08:49 07:40 Mclean 10 mg-325 mg 1 tabs PO [facility] 17:39 15:16 Discharge ordered by . phong
--- NOTE | 2019-04-02 09:06 | RAD REPORT ---
EXAM DESCRIPTION: RAD - Foot Left 3 View - 04/02/2019 7:51 am CLINICAL HISTORY: PAIN COMPARISON: No comparisons FINDINGS: Transverse fracture is seen with soft tissue swelling involving the base of the distal pha lanx of the great toe.
--- NOTE | 2019-04-02 09:21 | RAD REPORT ---
EXAM DESCRIPTION: CT Head Without Intravenous Contrast CLINICAL HISTORY: The patient is 38 years old and is Male; altered mental status TECHNIQUE: Axial computed tomography images of the head/brain without intravenous contrast. Sagitt al and coronal reformatted images were created and reviewed. This CT exam was performed using one o r more of the following dose reduction techniques: automated exposure control, adjustment of the mA and/or kV according to patient size, and/or use of iterative reconstruction technique. COMPARISON: No relevant prior studies available. FINDINGS: BRAIN: Unremarkable. The leonard-white matter differentiation is preserved . No hemorrhag e. No significant white matter disease. No edema. No extra-axial fluid collections. VENTRICLES: Unremarkable. No ventriculomegaly. BONES/JOINTS: No acute fracture. SOFT TISSUES: Unremarkable. SINUSES: Unremarkable as visualized. No acute sinusitis. MASTOID AIR CELLS: Unremarkable as visualized. No mastoid effusion. ORBITS: Unremarkable as visualized. IMPRESSION: No acute intracranial findings. Electronically signed by: Patricia Haley MD 04/02/2019 6:26 AM GROUP RESERVATIONS COORDINATOR Due to temporary technical issues with the PACS/Fluency reporting system, reports are being signed by the in house radiologist as a courtesy to ensure prompt reporting. The interpreting radiologist is f ully responsible for the content of the report.
[2019-04-02] MEDS ORDERED: IBUPROFEN 100 MG/5 ML UCUP ONE (13:49)
[2019-04-04 08:31] VITALS: O2SAT 98
[2019-04-04 08:32] VITALS: TEMP 98.2
[2019-04-04 08:33] VITALS: BP 122/62
== END 2019-04-02 16:58 | disposition home or self-care (01) ==
LOC: ER 03:16
DX: S91.112A Laceration without foreign body of left great toe without damage to nail, initial encounter (principal); X58.XXXA Exposure to other specified factors, initial encounter; Y93.9 Activity, unspecified; Y92.9 Unspecified place or not applicable; F55.8 Abuse of other non-psychoactive substances; Z23 Encounter for immunization
CPT/HCPCS: 51702; 70450; 90471; 90714; 99285

== ENCOUNTER 2019-09-05 03:27 | Inpatient (IN) | payer SELFPAY ==
--- OUTSIDE RECORDS SUMMARY | 2019-09-05 03:28 | XMS REPORT | Continuity of Care Document ---
:1980 Author Organization [facility] t Address [address] [place] [address] Dr. Devlin [address] [place] [id number] Care Team Providers Name Role Phone Unavailable Unavailable Unavailable Problems This patient has no known problems. Allergies, Adverse Reactions, Alerts This patient has no known allergies or adverse reactions. Medications This patient has no known medications. Procedures This patient has no known procedures. Results This patient has no known results.
[2019-09-05] MEDS ORDERED: RSI MEDICATION KIT IV ONE (03:35)
[2019-09-05] MEDS ORDERED: NA CHLORIDE 0.9% 2,000 ML ONE (03:35)
[2019-09-05] MEDS ORDERED: CEFTRIAXONE/SWI 1gm 1 GM/10 ML SYR ONE (03:50)
[2019-09-05] MEDS ORDERED: ACETAMINOPHEN 650MG/RECT SUPP PR ONE (03:50)
[2019-09-05] MEDS ORDERED: NA CHLORIDE 0.9% 250 ML ONE ×2 (03:50→04:41)
[2019-09-05] MEDS ORDERED: VANCOMYCIN 1 GM/VIAL ONE ×2 (03:50→04:38)
[2019-09-05] MEDS ORDERED: MIDAZOLAM HCL 2 MG/2 ML INJ ONE (03:54)
[2019-09-05] MEDS ORDERED: NA CHLORIDE 0.9% 1,000 ML ONE ×3 (03:55→20:57)
[2019-09-05] MEDS ORDERED: propofoL 1,000 MG/100 ML VIAL IV ONE ×3 (03:55→23:29)
[2019-09-05 03:59] LABS: Barbiturates NEGATIVE (NEGATIVE); Benzodiazepines NEGATIVE (NEGATIVE); Cocaine NEGATIVE (NEGATIVE); METHAMPHETAM POSITIVE (NEGATIVE); Methadone NEGATIVE (NEGATIVE); Opiates NEGATIVE (NEGATIVE); Phencyclidine NEGATIVE (NEGATIVE); THC Cannibis NEGATIVE (NEGATIVE)
[2019-09-05 04:04] LABS: Protime INR 1.17
[2019-09-05 04:15] LABS: ALT/SGPT 111 U/L (12-78); AST/SGOT 98 U/L (15-37); Albumin 4.2 g/dL (3.4-5.0); Alkaline Phosphatase 118 U/L (45-117); BUN Blood Urea Nitrogen 24 mg/dL (7-18); Bicarbonate 20 mmol/L (21-32); Bilirubin Direct 0.2 mg/dL (0-0.2); Bilirubin Total 0.5 mg/dL (0.2-1.0); Glucose Level 98 mg/dL (74-106); Magnesium 2.1 mg/dL (1.8-2.4); NT PRO-BNP 95 pg/mL (<125); Potassium 4.9 mmol/L (3.5-5.1); Protein, Total 8.4 g/dL (6.4-8.2); Sodium Level 150 mmol/L (136-145); Troponin (Emerg Dept Use Only) 0.14 ng/mL (0.0-0.045)
[2019-09-05 04:17] LABS: Absolute Lymphocytes (CBC) 1.5 K/uL (0.7-4.9); Basophils % 0.8 % (0-1.3); Hematocrit 43.9 % (39.6-49.0); Lymphocytes % 17.2 % (15.3-44.8); MPV 8.9 fL (7.6-11.3); RBC Red Blood Cell Count 4.79 M/uL (4.33-5.43)
--- NOTE | 2019-09-05 04:46 | EDPHYS ---
Physician Documentation [facility] Name: Tyree Nicole Age: 39 yrs Sex: Male : 1980 Arrival Date: 09/05/2019 Time: 03:28 Bed 3 Private MD: ED Physician Dorian Cobb HPI: 09/04 03:50 This 39 yrs old Male presents to ER via EMS with complaints of Overdose. phong 03:50 The patient presents to the emergency department with a possible overdose. phong Historical: - Allergies: 03:36 Unable to obtain; rv - PMHx: 03:36 Hepatitis; rv - PSHx: 03:36 Unable to obtain; rv - Immunization history:: Adult Immunizations unknown. - Social history:: Smoking status: unknown. ROS: 03:51 Constitutional: Positive for fever. phong 03:51 Cardiovascular: Positive for palpitations. 03:51 Neuro: Positive for altered mental status. 03:51 Unable to obtain ROS due to obtunded state. 03:59 Abdomen/GI: Negative for abdominal pain, nausea, vomiting, diarrhea, and constipation, phong Back: Negative for injury and pain. Exam: 03:51 Head/Face: Normocephalic, atraumatic. Eyes: Pupils equal round and reactive to light, phong extra-ocular motions intact. Lids and lashes normal. Conjunctiva and sclera are non-icteric and not injected. Cornea within normal limits. Periorbital areas with no swelling, redness, or edema. Chest/axilla: Normal chest wall appearance and motion. Nontender with no deformity. No lesions are appreciated. Back: No spinal tenderness. No costovertebral tenderness. Full range of motion. MS/ Extremity: Pulses equal, no cyanosis. Neurovascular intact. Full, normal range of motion. 03:51 Constitutional: The patient appears febrile, in obvious distress, moderately distressed. 03:51 Head/face: Exam is negative for 03:51 Cardiovascular: Rate: tachycardic, Rhythm: regular, Pulses: Pulses are 4+ in bilateral radial, brachial, femoral, popliteal, posterior tibial and and dorsalis pedis arteries.. Heart sounds: normal, Edema: is not appreciated, JVD: is not appreciated. 03:59 ECG was reviewed by the Attending Physician. [facility] Vital Signs: 03:31 Pulse 133; Resp 28; Temp 104.3; Pulse Ox 99% ; Weight 81.65 kg; rv 03:37 BP 149 / 128; rv 04:00 BP 118 / 87; Pulse 118; Resp 16 A; Temp 99.7; Pulse Ox 100% on ETT vent; sg 04:45 BP 115 / 67; Pulse 89; Resp 16; Temp 99.1; Pulse Ox 100% on ETT vent; sg 05:00 BP 115 / 64; Pulse 100; Resp 19; Temp 97.8; Pulse Ox 100% on 40% FiO2 ETT vent; rv 05:30 BP 104 / 67; Pulse 92; Resp 24; Temp 97; Pulse Ox 100% on 40% FiO2 ETT vent; rv 06:00 BP 104 / 66; Pulse 88; Resp 18; Temp 96.6; Pulse Ox 100% on 40% FiO2 ETT vent; rv 06:30 BP 108 / 71; Pulse 84; Resp 18; Temp 96.4; Pulse Ox 100% on 40% FiO2 ETT vent; rv Haily Coma Score: 04:00 Eye Response: none(1). Verbal Response: none(1). Motor Response: withdraws from rv pain(4). Modifying Factors: Intubated. Modifying Factors: Medicated. Total: 6. Procedures: 05:38 Lumbar Puncture: Patient placed in left lateral decubitus position. Collected 20 ml's phong of Puncture site dressed with band aid, Patient tolerated well. Intubation: Ventilated with 100% NRB prior to procedure. O2 saturation prior to procedure was 100 %. Intubated orally using # 3 Jaye blade with 7.5 mm ETT. was successful on first attempt. Ventilated with Placement verified by CXR, CO2 detector with (+) color change, auscultating bilateral breath sounds, O2 saturation after procedure was 100 %. Patient tolerated well. Central Line: the site was prepped with Betadine, in sterile fashion, a triple lumen catheter was inserted, in the right femoral vein, in 1 attempts. placement was verified, by blood return, the site was dressed with using sterile technique, the patient tolerated the procedure, well. MDM: 03:28 Patient medically screened. [facility] 03:53 Data reviewed: vital signs, nurses notes, lab test result(s), EKG, radiologic studies, [facility] CT scan, plain films. 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 Test interpretation: by ED physician or midlevel provider: ECG, plain radiologic studies. Counseling: I had a detailed discussion with the patient and/or guardian regarding: the historical points, exam findings, and any diagnostic results supporting the discharge/admit diagnosis, lab results, radiology results, the need for further work-up and treatment in the hospital. 05:34 Differential diagnosis: Ingestion/exposure to meth polypharmacy, over medication, phong closed head injury, viral Infection, bacterial infection, URI, pneumonia UTI, meningitis. Differential Diagnosis altered mental status, sepsis. Differential Diagnosis: CVA, electrolyte abnormality, alcohol intoxication, intracranial bleed, meningitis, overdose, pneumonia, seizure, sepsis, TIA, UTI, volume depletion. ED course: no beds at [facility], will keep patient here icu, dr rodarte. 05:44 ED course: ct traumagram negative. [facility] 09/04 03:31 Order name: Acetaminophen; Complete Time: 04:39 [facility] 09/04 03:31 Order name: Basic Metabolic Panel; Complete Time: 04:39 [facility] 09/04 03:31 Order name: CBC with Diff; Complete Time: 04:39 [facility] 09/04 03:31 Order name: ETOH Level; Complete Time: 04:39 [facility] 09/04 03:31 Order name: Hepatic Function; Complete Time: 04:39 [facility] 09/04 03:31 Order name: PT-INR; Complete Time: 04:39 [facility] 09/04 03:31 Order name: Ptt, Activated; Complete Time: 04:39 [facility] 09/04 03:31 Order name: Salicylate; Complete Time: 04:39 [facility] 09/04 03:31 Order name: Urine Drug Screen; Complete Time: 04:39 [facility] 09/04 03:34 Order name: Basic Metabolic Panel [facility] 09/04 03:34 Order name: Blood Culture Adult (2) [facility] 09/04 03:34 Order name: Procalcitonin; Complete Time: 09:37 [facility] 09/04 03:34 Order name: Lactate; Complete Time: 09:37 [facility] 09/04 03:34 Order name: Influenza Screen (a \T\ B); Complete Time: 09:37 [facility] 09/04 03:34 Order name: COVID-19; Complete Time: 23:30 [facility] 09/04 03:34 Order name: Strep; Complete Time: 09:37 phong 09/04 03:34 Order name: ABG; Complete Time: 09:37 phong 09/04 03:41 Order name: Urine Dipstick--Ancillary (enter results); Complete Time: 09:37 ar5 09/04 03:34 Order name: XRAY Chest (1 view); Complete Time: 09:37 phong 09/04 03:34 Order name: CT Traumagram (Head C Spine CAP W Con); Complete Time: 23:30 phong 09/04 03:45 Order name: Troponin (Emerg Dept Use Only); Complete Time: 04:39 EDMS 09/04 03:45 Order name: NT PRO-BNP; Complete Time: 04:39 EDMS 09/04 03:45 Order name: Magnesium; Complete Time: 04:39 EDMS 09/04 03:56 Order name: Spinal Fluid Profile; Complete Time: 09:37 [facility] 09/04 04:35 Order name: Glucose, Ancillary Testing; Complete Time: 04:39 EDMS 09/04 05:30 Order name: Acetaminophen Level; Complete Time: 09:37 EDMS 09/04 05:36 Order name: EEG Request EDMS 09/04 06:21 Order name: CSF Culture EDMS 09/04 06:21 Order name: CSF Bacterial Antigens (Tube 1 EDMS 09/04 07:23 Order name: Body Fluid Cell Count; Complete Time: 09:37 EDMS 09/04 07:56 Order name: Lactate Sepsis 2 HR Follow-up; Complete Time: 09:37 EDMS 09/05 06:04 Order name: Comprehensive Metabolic Panel EDMS 09/05 06:04 Order name: Phosphorus EDMS 09/05 06:04 Order name: Magnesium EDMS 09/05 06:13 Order name: Protime (+INR) EDMS 09/05 06:13 Order name: PTT, Activated Partial Thromb EDMS 09/05 06:18 Order name: CBC with Automated Diff EDMS 09/05 07:10 Order name: Acetaminophen Level EDMS 09/05 08:37 Order name: Gram Stain--Aerobic Bottle EDMS 09/05 08:37 Order name: Gram Stain--Anaerobic Bottle EDMS 09/05 09:58 Order name: Comprehensive Metabolic Panel EDMS 09/05 10:09 Order name: RAD EDMS 09/05 10:34 Order name: Throat Culture EDMS 09/05 11:33 Order name: Miscellaneous Test Lab [facility] 09/04 03:31 Order name: EKG; Complete Time: 03:32 [facility] 09/04 03:31 Order name: EKG - Nurse/Tech; Complete Time: 04:16 [facility] 09/04 03:31 Order name: IV Saline Lock; Complete Time: 03:56 [facility] 09/04 03:31 Order name: Labs collected and sent; Complete Time: 03:56 [facility] 09/04 03:31 Order name: Urine Dipstick-Ancillary (obtain specimen); Complete Time: 04:16 [facility] 09/04 03:34 Order name: EKG; Complete Time: 03:35 [facility] 09/04 03:34 Order name: Cardiac monitoring; Complete Time: 03:56 [facility] 09/04 03:34 Order name: EKG - Nurse/Tech; Complete Time: 04:15 [facility] 09/04 03:34 Order name: IV Saline Lock; Complete Time: 03:56 [facility] 09/04 03:34 Order name: Labs collected and sent; Complete Time: 03:56 [facility] 09/04 03:34 Order name: O2 Per Protocol; Complete Time: 03:56 [facility] 09/04 03:34 Order name: O2 Sat Monitoring; Complete Time: 03:56 [facility] 09/04 03:34 Order name: Ivan; Complete Time: 03:45 [facility] 09/04 03:34 Order name: Urine Dipstick-Ancillary (obtain specimen); Complete Time: 03:44 [facility] 09/04 03:34 Order name: Central Line Kit; Complete Time: 03:59 [facility] 09/04 03:56 Order name: Misc. Order: cooling blanket; Complete Time: 18:57 [facility] 09/04 03:56 Order name: NG Tube; Complete Time: 04:01 [facility] 09/04 03:56 Order name: Lumbar Puncture Consent; Complete Time: 18:57 [facility] 09/04 03:56 Order name: Lumbar Puncture Setup; Complete Time: 18:57 [facility] 09/04 05:35 Order name: CONS Physician Consult [facility] 09/04 05:35 Order name: CONS Physician Consult [facility] 09/04 05:35 Order name: NPO [facility] 09/04 12:33 Order name: Restraint:Non-Violent; Complete Time: 12:33 bp EC:59 Rate is 137 beats/min. Rhythm is regular. QRS [place] is Normal. RI interval is normal. phong QRS interval is normal. QT interval is normal. No Q waves. T waves are Normal. No ST changes noted. Clinical impression: Sinus tachycardia and No evidence of ischemia. Interpreted by me. Reviewed by me. Administered Medications: 03:39 Drug: NS 0.9% (30 ml/kg) 30 ml/kg Route: IV; Rate: bolus; Site: right hand; mg2 11:34 Follow up: IV Status: Completed infusion; IV Intake: 2500ml bp 03:48 Drug: Versed 5 mg Route: IVP; Site: right hand; rv 11:33 Follow up: Response: No adverse reaction bp 03:50 Drug: Etomidate 20 mg Route: IVP; Site: right hand; rv 11:33 Follow up: Response: No adverse reaction bp 03:50 Drug: Succinylcholine 80 mg Route: IVP; Site: right hand; rv 11:33 Follow up: Response: No adverse reaction bp 03:54 CANCELLED (Duplicate Order): Rocuronium 50 mg IVP once phong 03:59 Drug: Propofol 5 mcg/kg/min Route: IV; Rate: calculated rate; Site: left forearm; rv 11:32 Follow up: IV Status: Infusion continued upon admission bp 04:30 Drug: Tylenol Suppository 650 mg Route: RI; mg2 11:33 Follow up: Response: No adverse reaction bp 04:40 Not Given (Duplicate Order): vancoMYCIN 2 grams IVPB at calculated rate once phong 04:46 Drug: Rocephin 2 grams Route: IV; Rate: per protocol; Site: right antecubital; mg2 11:35 Follow up: IV Status: Completed infusion; IV Intake: 50ml bp 04:46 Drug: vancoMYCIN 1 grams Route: IVPB; Infused Over: 2 hrs; Site: left antecubital; mg2 11:24 Follow up: IV Status: Completed infusion; IV Intake: 250ml bp 04:53 Drug: Mucomyst - Acetylcysteine 600 mg {Note: to NG.} Route: PO; mg2 11:32 Follow up: Response: No adverse reaction bp 09/05 11:47 Drug: HALdol 2 mg Route: IVP; Site: right antecubital; sv 12:00 Follow up: Response: No adverse reaction; Marked relief of symptoms em Disposition: 09/05/19 04:45 Hospitalization ordered by Daniele Rodarte for Inpatient Admission. Preliminary diagnosis are Fever, unspecified, Altered mental status, unspecified, Epileptic seizures related to external causes, Sepsis, unspecified organism, Adverse effect of amphetamines, Acute kidney failure. - Bed requested for Telemetry/MedSurg (Inpatient). - Status is Inpatient Admission. em - Condition is Serious. - Problem is new. - Symptoms have improved. Signatures: Dispatcher [employer] EDYessica Yuan, Jessica Rankin RN, RN RN dw Anderson, Corey, MD MD cha Munoz, Edgar, RN RN em Nieto, Roman, MD MD rn Garcia, Cindy RN Clement Arriola RN RN bp Gardose, Michele, RN RN mg2 Da Knight RN RN rv Corrections: (The following items were deleted from the chart) 09/04 03:41 03:35 URINE DRUG SCREEN+CHEM UR.LAB.BRZ ordered. EDMS EDMS 03:43 03:35 Basic Metabolic Panel ordered. EDMS EDMS 03:43 03:35 CBC+H.LAB.BRZ ordered. EDMS EDMS 03:43 03:35 HEPATIC FUNCTION+C.LAB.BRZ ordered. EDMS EDMS 03:43 03:35 MAGNESIUM+C.LAB.BRZ ordered. EDMS EDMS 03:43 03:35 PROBNP+C.LAB.BRZ ordered. EDMS EDMS 03:43 03:35 PROTIME (+INR)+COAG.LAB.BRZ ordered. EDMS EDMS 03:43 03:35 TROPONIN (EMERG DEPT USE ONLY)+C.LAB.BRZ ordered. EDMS EDMS 03:43 03:35 ACETAMINOPHEN+C.LAB.BRZ ordered. EDMS EDMS 03:43 03:35 ETHANOL+C.LAB.BRZ ordered. EDMS EDMS 03:43 03:35 PTT, ACTIVATED+COAG.LAB.BRZ ordered. EDMS EDMS 03:43 03:35 SALICYLATE+C.LAB.BRZ ordered. EDMS EDMS 03:54 03:34 Rocuronium 50 mg IVP once ordered. phong phong 04:49 04:45 Hospitalization Ordered by Daniele Rodarte MD for Inpatient Admission. Preliminary phong diagnosis is Fever, unspecified; Altered mental status, unspecified; Epileptic seizures related to external causes; Sepsis, unspecified organism. Bed requested for Intensive Care Unit. Status is Inpatient Admission. Condition is Serious. Problem is new. Symptoms have improved. [facility] 05:44 04:49 09/05/2019 04:45 Hospitalization Ordered by Daniele Rodarte MD for Inpatient cg Admission. Preliminary diagnosis is Fever, unspecified; Altered mental status, unspecified; Epileptic seizures related to external causes; Sepsis, unspecified organism; Adverse effect of amphetamines. Bed requested for Intensive Care Unit. Status is Inpatient Admission. Condition is Serious. Problem is new. Symptoms have improved. [facility] 08:32 05:44 09/05/2019 04:45 Hospitalization Ordered by Daniele Rodarte MD for Inpatient phong Admission. Preliminary diagnosis is Fever, unspecified; Altered mental status, unspecified; Epileptic seizures related to external causes; Sepsis, unspecified organism; Adverse effect of amphetamines. Bed requested for [facility] ER HOLD. Status is Inpatient Admission. Condition is Serious. Problem is new. Symptoms have improved. 10:53 08:32 09/05/2019 04:45 Hospitalization Ordered by Daniele Rodarte MD for Inpatient dw Admission. Preliminary diagnosis is Fever, unspecified; Altered mental status, unspecified; Epileptic seizures related to external causes; Sepsis, unspecified organism; Adverse effect of amphetamines; Acute kidney failure. Bed requested for [facility] ER HOLD. Status is Inpatient Admission. Condition is Serious. Problem is new. Symptoms have improved. [facility] 22:46 10:53 09/05/2019 04:45 Hospitalization Ordered by Daniele Rodarte MD for Inpatient cg Admission. Preliminary diagnosis is Fever, unspecified; Altered mental status, unspecified; Epileptic seizures related to external causes; Sepsis, unspecified organism; Adverse effect of amphetamines; Acute kidney failure. Bed requested for Intensive Care Unit. Status is Inpatient Admission. Condition is Serious. Problem is new. Symptoms have improved. dw 22:47 22:46 09/05/2019 04:45 Hospitalization Ordered by Daniele Rodarte MD for Inpatient cg Admission. Preliminary diagnosis is Fever, unspecified; Altered mental status, unspecified; Epileptic seizures related to external causes; Sepsis, unspecified organism; Adverse effect of amphetamines; Acute kidney failure. Bed requested for Intensive Care Unit. Status is Inpatient Admission. Condition is Serious. Problem is new. Symptoms have improved. cg 09/05 16:28 07/16 22:47 09/05/2019 04:45 Hospitalization Ordered by Daniele Rodarte MD for Inpatient dw Admission. Preliminary diagnosis is Fever, unspecified; Altered mental status, unspecified; Epileptic seizures related to external causes; Sepsis, unspecified organism; Adverse effect of amphetamines; Acute kidney failure. Bed requested for [facility] ER HOLD. Status is Inpatient Admission. Condition is Serious. Problem is new. Symptoms have improved. 09/05 17:18 16:28 09/05/2019 04:45 Hospitalization Ordered by Daniele Rodarte MD for Inpatient em Admission. Preliminary diagnosis is Fever, unspecified; Altered mental status, unspecified; Epileptic seizures related to external causes; Sepsis, unspecified organism; Adverse effect of amphetamines; Acute kidney failure. Bed requested for Telemetry/MedSurg (Inpatient). Status is Inpatient Admission. Condition is Serious. Problem is new. Symptoms have improved. dw
--- NOTE | 2019-09-05 04:46 | ER ---
Nurse's Notes [facility] Name: Tyree Nicole Age: 39 yrs Sex: Male : 1980 Arrival Date: 09/05/2019 Time: 03:28 Bed 3 Private MD: Diagnosis: Fever, unspecified;Altered mental status, unspecified;Epileptic seizures related to external causes;Sepsis, unspecified organism;Adverse effect of amphetamines;Acute kidney failure Presentation: 09/04 03:31 Chief complaint: EMS states: POSSIBLE DRUG OVERDOSE. POLICE GAVE DOSE OF NARCAN. rv PATIENT STARTED HAVING SEIZURE. GIVEN 300MG OF KETAMINE. UNRESPONSIVE AND SEIZURE DID NOT STOP. Coronavirus screen: Surgical mask placed on patient. Patient moved to private room, placed in contact and droplet isolation with eye protection until further assessment. Ebola Screen: No symptoms or risks identified at this time. Initial Sepsis Screen: Does the patient meet any 2 criteria? RR > 20 per min. HR > 90 bpm. Risk Assessment: Do you want to hurt yourself or someone else? Patient reports no desire to harm self or others. Onset of symptoms is unknown. 03:31 Method Of Arrival: EMS: [facility] 03:31 Acuity: ANDREW 2 rv 06:48 Initial Sepsis Screen: Does the patient have a suspected source of infection? No. rv Patient's initial sepsis screen is negative. Triage Assessment: 03:36 General: Appears ill, unkempt, Behavior is unresponsive. Pain: Unable to use pain rv scale. Patient is unresponsive. EENT: No signs and/or symptoms were reported regarding the EENT system. Neuro: Level of Consciousness is unresponsive, Pupils are fixed, constricted. Neuro: Cardiovascular: Patient's skin is warm and dry. Cardiovascular: Rhythm is sinus tachycardia. Respiratory: Airway is patent Respiratory effort is even, Respiratory pattern is tachypnea. Historical: - Allergies: 03:36 Unable to obtain; rv - PMHx: 03:36 Hepatitis; rv - PSHx: 03:36 Unable to obtain; rv - Immunization history:: Adult Immunizations unknown. - Social history:: Smoking status: unknown. Screenin:03 Abuse screen: UNRESPONSIVE. Nutritional screening: No deficits noted. Tuberculosis rv screening: No symptoms or risk factors identified. Fall Risk None identified. Assessment: 04:00 Cardiovascular: Patient's skin is warm and dry. Rhythm is sinus tachycardia. rv Respiratory: Airway is patent via oral intubation Respiratory effort is even, unlabored, Ventilator assessment: ET Tube: 7.5 Ventilator Mode: Assist Control (AC) Respiratory Rate: 16 FiO2: 100%. Pressure Support: 600 HOB > 30 degrees. Breath sounds are clear bilaterally. Respiratory:. Respiratory:. 04:02 Reassessment:. rv 05:01 Neuro: Level of Consciousness is unresponsive, Pupils are fixed, constricted. rv Cardiovascular: Patient's skin is warm and dry. Respiratory: Airway is patent Ventilator assessment: ET Tube: 7.5 Ventilator Mode: Assist Control (AC) Respiratory Rate: 16 FiO2: 100%. Pressure Support: 600. 06:38 Neuro: Level of Consciousness is unresponsive, UNDER SEDATION. Pupils are fixed, rv constricted. Cardiovascular: Patient's skin is warm and dry. Rhythm is sinus rhythm. Respiratory: Airway is patent via oral intubation Ventilator assessment: ET Tube: 7.5 23 cm AT TEETH Ventilator Mode: Assist Control (AC) Respiratory Rate: 18 FiO2: 40 Pressure Support: 600 HOB > 30 degrees. Breath sounds are clear bilaterally. 07:00 Reassessment: RECD REPORT FROM TRACI ROWE. 39YO WM P/W AMS, R/O OVERDOSE, H/O bp POLYSUBSTANCE ABUSE. PT INTUBATED, ICU ADMIT IN PROCESS. SEE [facility] FOR FURTHER DOCUMENTATION. Overdose: 07:00 Patient took UNKNOWN. Overdose occurred UNKNOWN. Ivan cath inserted, using sterile bp technique, 16 Fr., by ED staff, balloon inflated, to gravity drainage, urine specimen collected. returned cloudy urine. NGT: inserted 16 Fr. other OROGASTRIC to intermittent suction. Returned gastric contents. Vital Signs: 03:31 Pulse 133; Resp 28; Temp 104.3; Pulse Ox 99% ; Weight 81.65 kg; rv 03:37 BP 149 / 128; rv 04:00 BP 118 / 87; Pulse 118; Resp 16 A; Temp 99.7; Pulse Ox 100% on ETT vent; sg 04:45 BP 115 / 67; Pulse 89; Resp 16; Temp 99.1; Pulse Ox 100% on ETT vent; sg 05:00 BP 115 / 64; Pulse 100; Resp 19; Temp 97.8; Pulse Ox 100% on 40% FiO2 ETT vent; rv 05:30 BP 104 / 67; Pulse 92; Resp 24; Temp 97; Pulse Ox 100% on 40% FiO2 ETT vent; rv 06:00 BP 104 / 66; Pulse 88; Resp 18; Temp 96.6; Pulse Ox 100% on 40% FiO2 ETT vent; rv 06:30 BP 108 / 71; Pulse 84; Resp 18; Temp 96.4; Pulse Ox 100% on 40% FiO2 ETT vent; rv [place] Coma Score: 04:00 Eye Response: none(1). Verbal Response: none(1). Motor Response: withdraws from rv pain(4). Modifying Factors: Intubated. Modifying Factors: Medicated. Total: 6. ED Course: 03:28 Patient arrived in ED. ds1 03:28 Dorian Cobb MD is Attending Physician. phong 03:30 Initial lab(s) drawn, by ED staff, sent to lab. Inserted saline lock: 18 gauge in left sg forearm, using aseptic technique. Blood collected. 03:30 Maintain EMS IV. Dressing intact. Site clean \T\ dry. Gauge \T\ site: G20 RIGHT HAND. rv 03:31 Da Knight RN is Primary Nurse. rv 03:35 Triage completed. rv 03:50 Assisted provider with intubation using 7.5 mm ETT via oral route. ET tube secured at sg teeth. Intubated by Dorian Cobb MD Placement verified by CO2 detector w/ + color change, Patient tolerated well. NGT: inserted 14 Fr. via right nare. verified placement of air over stomach, Placement verified by X-ray, Patient tolerated well. 03:52 Urine Dipstick--Ancillary (enter results) Sent. ds4 04:03 Patient has correct armband on for positive identification. Placed in gown. Bed in low rv position. Side rails up X2. color television console monitor on. Pulse ox on. NIBP on. 04:06 XRAY Chest (1 view) In Process Unspecified. EDMS 04:30 Inserted saline lock: 20 gauge in right antecubital area, using aseptic technique. mg2 Blood collected. 04:34 CT Traumagram (Head C Spine CAP W Con) In Process Unspecified. EDMS 04:35 Initiate transfer with [facility] spoke with Teressa Kuhn. Pt. is put on a wait ar5 list for an ICU bed. 04:43 Daniele Anderson MD is Hospitalizing Provider. [facility] 04:50 Spoke with Kathleen sAtorga \T\ [facility] for [facility]. They are at capacity at ar5 this time. 05:15 Spoke with Garrick \\ Chiara [facility] for an ICU bed. They are at capacity at this time. ar5 06:48 IV is patent, with fluids infusing freely, with good blood return, Patient admitted, IV rv remains in place. 07:49 Primary Nurse role handed off by Da Knight, JAE 07:57 Clement Reynoso, JAE is Primary Nurse. bp Restraints: 04:00 Non-Violent Restraint: Order obtained. Initiated on September 05, 2019 at 04:00 Unable to bp provide Restraint education. PT UNABLE TO UNDERSTAND. Actions/Behavior observed: Confused/disoriented, has impaired decision making, has decreased level of consciousness, unable to follow instructions, repeated attempts to remove/tamper lines/tubes/IV med devices \T\ wound dressing, Less restrictive alternatives attempted: decrease environmental stimuli, placed near Nurse station, reoriented to location, medicated for pain/anxiety, lines/tubes covered, eliminated unnecessary lines/tubes, verbal de-escalation performed, Alternative interventions: Ineffective. Clinical justification for use: airway protection, line protection, patient safety, Mental status: agitated/restless, confused, Cognition: poor judgement, poor safety awareness, impulsive, unable to follow commands, Circulation: Within defined parameters (based on Cardiovascular assessment) Skin integrity: Within defined parameters (based on Integumentary assessment) Signs of injury related to restraint: No injuries noted. Range of Motion (ROM): performed. Hydration/Food: patient declined. Elimination/Hygiene: with urinary catheter, Restraint status: Soft wrist restraint (Right) Started. Soft wrist restraint (Left) Started. Soft ankle restraint (Right) Started. Soft ankle restraint (Left) Started. Criteria to discontinue Restraint not met. Restraint continued. 06:00 Non-Violent Restraint: Actions/Behavior observed: Confused/disoriented, has impaired bp decision making, has decreased level of consciousness, unable to follow instructions, repeated attempts to remove/tamper lines/tubes/IV med devices \T\ wound dressing, Less restrictive alternatives attempted: decrease environmental stimuli, placed near Nurse station, reoriented to location, medicated for pain/anxiety, lines/tubes covered, eliminated unnecessary lines/tubes, verbal de-escalation performed, Alternative interventions: Ineffective. Clinical justification for use: airway protection, line protection, patient safety, Mental status: agitated/restless, confused, Cognition: poor judgement, poor safety awareness, impulsive, unable to follow commands, Circulation: Within defined parameters (based on Cardiovascular assessment) Skin integrity: Within defined parameters (based on Integumentary assessment) Signs of injury related to restraint: No injuries noted. Range of Motion (ROM): performed. Hydration/Food: patient declined. Elimination/Hygiene: with urinary catheter, Restraint status: Soft wrist restraint (Right) Continued. Soft wrist restraint (Left) Continued. Soft ankle restraint (Right) Continued. Soft ankle restraint (Left) Continued. Criteria to discontinue Restraint not met. Restraint continued. Administered Medications: 03:39 Drug: NS 0.9% (30 ml/kg) 30 ml/kg Route: IV; Rate: bolus; Site: right hand; mg2 11:34 Follow up: IV Status: Completed infusion; IV Intake: 2500ml bp 03:48 Drug: Versed 5 mg Route: IVP; Site: right hand; rv 11:33 Follow up: Response: No adverse reaction bp 03:50 Drug: Etomidate 20 mg Route: IVP; Site: right hand; rv 11:33 Follow up: Response: No adverse reaction bp 03:50 Drug: Succinylcholine 80 mg Route: IVP; Site: right hand; rv 11:33 Follow up: Response: No adverse reaction bp 03:54 CANCELLED (Duplicate Order): Rocuronium 50 mg IVP once phong 03:59 Drug: Propofol 5 mcg/kg/min Route: IV; Rate: calculated rate; Site: left forearm; rv 11:32 Follow up: IV Status: Infusion continued upon admission bp 04:30 Drug: Tylenol Suppository 650 mg Route: NC; mg2 11:33 Follow up: Response: No adverse reaction bp 04:40 Not Given (Duplicate Order): vancoMYCIN 2 grams IVPB at calculated rate once phong 04:46 Drug: Rocephin 2 grams Route: IV; Rate: per protocol; Site: right antecubital; mg2 11:35 Follow up: IV Status: Completed infusion; IV Intake: 50ml bp 04:46 Drug: vancoMYCIN 1 grams Route: IVPB; Infused Over: 2 hrs; Site: left antecubital; mg2 11:24 Follow up: IV Status: Completed infusion; IV Intake: 250ml bp 04:53 Drug: Mucomyst - Acetylcysteine 600 mg {Note: to NG.} Route: PO; mg2 11:32 Follow up: Response: No adverse reaction bp 09/05 11:47 Drug: HALdol 2 mg Route: IVP; Site: right antecubital; sv 12:00 Follow up: Response: No adverse reaction; Marked relief of symptoms em Intake: 09/04 11:24 IV: 250ml; Total: 250ml. bp 11:34 IV: 2500ml; Total: 2750ml. bp 11:35 IV: 50ml; Total: 2800ml. bp Outcome: 04:45 Decision to Hospitalize by Provider. phong 06:47 Admitted to ER Hold. Please see [facility] for further documentation. rv 06:47 Condition: stable 09/05 17:18 Patient left the ED. em Signatures: Dispatcher Yicha Onlinest Yessica Matute RN RN sv Gay, Steven RN Dorian Rosa MD MD cha Munoz, Edgar RN Blessing Bhatia ds1 Feliciano Jeffries ds4 Clement Reynoso RN RN bp Miki Bales RN RN mg2 Da Knight RN RN Gely Titus ar5 Corrections: (The following items were deleted from the chart) 09/04 04:45 04:43 BP 118 / 87; Pulse 118bpm; Resp 16bpm; Assisted; Pulse Ox 100% ET / Ventilator; sg Temp 99.7F; sg 05:02 03:50 Assisted provider with intubation using 7.0 mm ETT via oral route. ET tube rv secured at teeth. Intubated by Dorian Cobb MD Placement verified by CO2 detector w/ + color change, Patient tolerated well. sg 06:46 05:01 Neuro: Level of Consciousness is unresponsive, Pupils are fixed, constricted, rv rv 06:46 05:01 Respiratory: Airway is patent rv rv
[2019-09-05 04:52] LABS: Blood Gas Oxyhemoglobin 97.8 % (94-97); Blood O2 Saturation 99.7 % (92-98.5)
[2019-09-05] MEDS ORDERED: ACETYLCYST 6,000 MG/30 ML VIAL ONE (04:59)
[2019-09-05] MEDS ORDERED: CEFTRIAXONE 1000 MG/VIAL ONE (05:06)
[2019-09-05] MEDS ORDERED: IPRATROPIUM BROM 0.5MG/2.5ML NEB PRN (05:30)
[2019-09-05] MEDS ORDERED: ONDANSETRON 4 MG/2 ML VIAL IV PRN (05:30)
[2019-09-05] MEDS ORDERED: propofoL 1,000 MG/100 ML VIAL IV PRN (05:30)
[2019-09-05] MEDS ORDERED: ALBUTEROL 2.5 MG/3 ML NEB SOL NEB PRN (05:30)
[2019-09-05] MEDS ORDERED: levETIRAcetam 500 MG in NA CHLORIDE 0.9% 100 ML IV SCH (06:00)
[2019-09-05 06:25] LABS: CSF Glucose 74 mg/dL (40-70)
[2019-09-05 06:30] LABS: Urine Blood TRACE (NEG); Urine Glucose NEGATIVE (NEG); Urine Protein 1+ (NEG); Urine Specific Gravity 1.025 (1.005-1.030)
[2019-09-05 07:19] LABS: Appearance CLEAR (CLEAR); Body Fluid Source CSF; Body Fluid WBC 0 /mm^3; Color of fluid Colorless (COLORLESS); Fluid Total Volume 3.5 ml
[2019-09-05 07:21] LABS: Body Fluid Source CSF; Color of fluid Colorless (COLORLESS)
[2019-09-05 07:22] LABS: Appearance CLEAR (CLEAR); Body Fluid WBC 0 /mm^3
--- NOTE | 2019-09-05 08:26 | RAD REPORT ---
EXAM DESCRIPTION: RAD - Chest Single View - 09/05/2019 4:06 am CLINICAL HISTORY: COUGH, possible overdose, respiratory distress, unresponsive COMPARISON: Portable October 2011 TECHNIQUE: AP portable chest image was obtained 09/05/2019 4:06 am . FINDINGS: Endotracheal tube is in place. Tip is at the T4 level, top of the aortic arch. This is 3 c m above the kitty. No significant pulmonary edema or focal infiltrate. Heart and vasculature are accentuated by supine p ositioning. No measurable pleural effusion and no pneumothorax. No acute bony abnormality seen. No ac rashel aortic findings suspected. IMPRESSION: No acute cardiopulmonary process. Endotracheal tube in good position.
[2019-09-05] MEDS: levETIRAcetam 500 MG in NA CHLORIDE 0.9% 100 ML IV SCH ×2 (09:00→20:55)
[2019-09-05] MEDS: ENOXAPARIN 40 MG/0.4 ML SQ SCH (09:00)
[2019-09-05] MEDS ORDERED: D5W 1,000 ML IV SCH (09:00)
[2019-09-05] MEDS ORDERED: ENOXAPARIN 40 MG/0.4 ML SQ ONE (09:35)
[2019-09-05] MEDS ORDERED: D5W 1,000 ML IV ONE (09:35)
--- NOTE | 2019-09-05 09:57 | RAD REPORT ---
EXAM DESCRIPTION: CT - Head C Spine Cap Colt Shen - 09/05/2019 6:37 am CLINICAL HISTORY: The patient is 39 years old and is Male; PAIN TECHNIQUE: Axial computed tomography images of the head/brain and cervical spine without intravenous contrast. Sagittal and coronal reformatted images were created and reviewed. This CT exam was pe rformed using one or more of the following dose reduction techniques: automated exposure control, a djustment of the mA and/or kV according to patient size, and/or use of iterative reconstruction techn ique. COMPARISON: CT of the head April 02, 2019 FINDINGS: BRAIN: Unremarkable. No hemorrhage. No significant white matter disease. No edema. VENTRICLES: Unremarkable. No ventriculomegaly. SKULL: No acute fracture. SINUSES: Unremarkable as visualized. No acute sinusitis. MASTOID AIR CELLS: Unremarkable as visualized. No mastoid effusion. VERTEBRAE: The vertebral body heights and alignment are maintained. No acute fracture. DISCS/SPINAL CANAL/NEURAL FORAMINA: The intervertebral disc spaces are maintained. No spinal can al stenosis. SOFT TISSUES: The soft tissues are normal. LUNG APICES: Unremarkable as visualized. TUBES, LINES AND DEVICES: Partial visualization of the endotracheal tube is noted. Partial visua lization of an enteric tube is present. The enteric tube is noted looped within the cervical esophagu s. IMPRESSION: 1. No acute intracranial findings. 2. No fracture or malalignment of the cervical spine. 3. Recommend repositioning of the enteric tube as it is coiled within the cervical esophagus. EXAM DESCRIPTION: CT Chest, Abdomen and Pelvis With Intravenous Contrast CLINICAL HISTORY: The patient is 39 years old and is Male; PAIN TECHNIQUE: Axial computed tomography images of the chest, abdomen and pelvis with intravenous contra st. Sagittal and coronal reformatted images were created and reviewed. This CT exam was performed using one or more of the following dose reduction techniques: automated exposure control, adjustme nt of the mA and/or kV according to patient size, and/or use of iterative reconstruction technique. COMPARISON: No relevant prior studies available. FINDINGS: CHEST: LUNGS: Minimal dependent densities in the lung bases are noted suggesting atelectasis. PLEURAL SPACE: Unremarkable. No significant effusion. No pneumothorax. HEART: No cardiomegaly. No pericardial effusion. ABDOMEN: LIVER: Unremarkable. No mass. GALLBLADDER AND BILE DUCTS: The gallbladder is distended. No calcified gallstones are seen. PANCREAS: No ductal dilation. No mass. SPLEEN: Unremarkable. ADRENALS: Unremarkable. No mass. KIDNEYS AND URETERS: A right intrarenal calcification is present. The kidneys enhance symmetrica lly. No obstructing renal or ureteral calculus is seen. STOMACH AND BOWEL: The stomach is significantly distended with fluid and air. The small bowel is fluid-filled and normal in caliber. A moderate amount stool is present throughout the colon. There i s no mucosal thickening or evidence of bowel obstruction. PELVIS: APPENDIX: The appendix is surgically absent. BLADDER: A Ivan catheter is present within the bladder. REPRODUCTIVE: Unremarkable as visualized. CHEST, ABDOMEN and PELVIS: INTRAPERITONEAL SPACE: Unremarkable. No significant fluid collection. No free air. BONES/JOINTS: There is no acute fracture of the visualized axial and appendicular skeleton. SOFT TISSUES: The soft tissues are normal. VASCULATURE: Unremarkable. No aortic aneurysm. LYMPH NODES: Unremarkable. No enlarged lymph nodes. TUBES, LINES AND DEVICES: Endotracheal tube is present with the tip superior to the kitty. IMPRESSION: No evidence of solid organ injury or traumatic bony findings on this contrasted CT of th e chest, abdomen, and pelvis. Electronically signed by: Patricia Haley MD 09/05/2019 5:10 AM CDT Due to temporary technical issues with the PACS/Fluency reporting system, reports are being signed by the in house radiologist without review as a courtesy to ensure prompt reporting. The interpreting r adiologist is fully responsible for the content of the report.
--- NOTE | 2019-09-05 11:16 | P.HP ---
Certification for Inpatient Patient admitted to: Inpatient Patient will require the following post-hospital care: None Practitioner: I am a practitioner with admitting privileges, knowledge of patient current condition, hospital course, and medical plan of care. Services: Services provided to patient in accordance with Admission requirements found in Title 42 Section 412.3 of the Code of Federal Regulations Patient History Date of Service: 09/05/19 Reason for admission: Unresponsive and respiratory failure with possible seizure activity History of Present Illness: patient is a 39-year-old gentleman who was found unresponsive and brought in by EMS. Patient was not able to protect his airway and was not waking up so he was intubated. EMS noted that he was having seizure-like activity on the scene. Patient was brought to the emergency room for further evaluation. In the ER patient had multiple labs and diagnostic studies which mostly have been unremarkable. Patient was noted to be severely dehydrated with elevated sodium, and BUN and creatinine. He was also slightly hypotensive. He appears to be hypovolemic so will start him on some normal saline for 1 L and then change his IV fluids. Started on antiepileptics. Get an EEG. His liver function studies also does appear to be elevated. Will check a acetaminophen level. Monitor his LFTs did a day. He if his is seen minute at level is elevated or his LFTs started going up may consider using Mucomyst. At this time, we have no evidence that he overdosed on acetaminophen. We will wait for Tylenol level to come back. At this time he is still sedated. We will hopefully be able to get more information when he is more awake and able to give us some more information. At this time he remains intubated. Will get pulmonary and nephrology consultation. Allergies tramadol Allergy (Intermediate, Verified 04/03/19 11:25) swelling No Known Allergies Allergy (Uncoded 04/03/19 11:25) Unknown Home medications list reviewed: No - Past Medical/Surgical History Past Medical History: Unable to obtain Past Surgical History: Unable to obtain Psychosocial/ Personal History: Unable to obtain any social information - Family History Father Family History: Reviewed- Non-Contributory - Social History Smoking Status: Unknown if ever smoked CD- Drugs: Yes Place of Residence: Home Review of Systems is unable to be obtained Physical Examination - Vital Signs Temperature: 96.1 F Blood Pressure: 94/65 Pulse: 77 Respirations: 18 Pulse Ox (%): 100 - Physical Exam General: Alert, In no apparent distress, Other ( patient remains intubated and is on a propofol drip at this time) HEENT: Atraumatic, PERRLA, Mucous membr. moist/pink, Other ( ETT and NG tube in place), EOMI, Sclerae nonicteric Neck: Supple, 2+ carotid pulse no bruit, No LAD, Without JVD or thyroid abnormality Respiratory: Clear to auscultation bilaterally, Normal air movement Cardiovascular: Regular rate/rhythm, Normal S1 S2 Gastrointestinal: Normal bowel sounds, Soft and benign, Non-distended, No tenderness Musculoskeletal: No clubbing, No swelling, No tenderness Integumentary: No rashes Neurological: Other ( patient is intubated and sedated and unable to examine) Lymphatics: No axilla or inguinal lymphadenopathy - Studies Laboratory Data (last 24 hrs) 09/05/19 03:34: PT Cancelled, INR Cancelled, APTT Cancelled 09/05/19 03:34: WBC Cancelled, Hgb Cancelled, Hct Cancelled, Plt Count Cancelled 09/05/19 03:34: Sodium Cancelled, Potassium Cancelled, BUN Cancelled, Creatinine Cancelled, Glucose Cancelled, Magnesium Cancelled, Total Bilirubin Cancelled, AST Cancelled, ALT Cancelled, Alkaline Phosphatase Cancelled 09/05/19 03:30: PT 13.8 H, INR 1.17, APTT 20.4 L 09/05/19 03:30: WBC 9.0, Hgb 14.9, Hct 43.9, Plt Count 171 09/05/19 03:30: Sodium 150 H, Potassium 4.9, BUN 24 H, Creatinine 2.34 H, Glucose 98, Magnesium 2.1, Total Bilirubin 0.5, AST 98 H, ALT 111 H, Alkaline Phosphatase 118 H Microbiology Data (last 24 hrs): 09/05/19 03:00 Nasopharnyx Coronavirus COVID-19 PCR - Final 09/05/19 05:30 Cerebral Spinal Fluid Gram Stain - Final 09/05/19 05:30 Cerebral Spinal Fluid CSF Bacterial Antigens (Tube 1) - Final 09/05/19 03:00 Throat Group A Streptococcus Rapid Screen - Final 09/05/19 03:00 Nasopharnyx Influenza Type A Antigen Screen - Final 09/05/19 03:00 Nasopharnyx Influenza Type B Antigen Screen - Final Assessment & Plan - Problems (Diagnosis) (1) Respiratory failure Current Visit: Yes Status: Acute (2) Intoxication Current Visit: Yes Status: Acute (3) Acute kidney failure Current Visit: Yes Status: Acute (4) Dehydration Current Visit: Yes Status: Acute (5) Metabolic acidosis with respiratory acidosis Current Visit: Yes Status: Acute (6) Coagulopathy Current Visit: Yes Status: Acute - Plan -IV hydration -IV antibiotics -cultures are pending -check renal function and electrolytes -EEG and continue antiepileptic -check thyroid studies and cortisol studies -bed check in place -physical therapy evaluation once mentation is improved -nephrology consultation for renal failure along with pulmonary consultation for vent management -monitor liver function testing Discharge Plan: Home Plan to discharge in: Greater than 2 days - Advance Directives Does patient have a Living Will: No Does patient have a Durable POA for Healthcare: No - Code Status/Comfort Care Code Status Assessed: Yes Code Status: Full Code Critical Care: No Time Spent Managing PTS Care (In Minutes): 45
[2019-09-05] MEDS ORDERED: SUCCINYLCHOLINE 20 MG/ML (10 ML) IV ONE (11:41)
[2019-09-05] MEDS ORDERED: ETOMIDATE 20 MG/10 ML VIAL IV ONE (11:41)
--- NOTE | 2019-09-05 20:56 | P.CNS ---
Date of Consult: 09/05/19 Reason for Consult: ADDISON/ CKD Requesting Physician: Daniele Anderson Chief Complaint: Unresponsive and respiratory failure with possible seizure activity History of Present Illness: Patient is a 39-year-old gentleman who was found unresponsive and brought in by EMS. Patient was not able to protect his airway and was not waking up so he was intubated. EMS noted that he was having seizure-like activity on the scene. Patient was brought to the emergency room for further evaluation. In the ER patient had multiple labs and diagnostic studies which mostly have been unremarkable. Patient was noted to be severely dehydrated with elevated sodium, and BUN and creatinine. He was also slightly hypotensive. He appears to be hypovolemic so will start him on some normal saline for 1 L and then change his IV fluids. Started on antiepileptics. Get an EEG. His liver function studies also does appear to be elevated. Will check a acetaminophen level. Monitor his LFTs did a day. He if his is seen minute at level is elevat ed or his LFTs started going up may consider using Mucomyst. At this time, we have no evidence that he overdosed on acetaminophen. We will wait for Tylenol level to come back. At this time he is still sedated. We will hopefully be able to get more information when he is more awake and able to give us some more information. At this time he remains intubated. Will get pulmonary and nephrology consultation. 03:50 This 39 yrs old Male presents to ER via EMS with complaints of Overdose. phong 03:50 The patient presents to the emergency department with a possible overdose. Allergies tramadol Allergy (Intermediate, Verified 04/03/19 11:25) swelling No Known Allergies Allergy (Uncoded 04/03/19 11:25) Unknown Home medications list reviewed: Yes - Past Medical/Surgical History Psychosocial/ Personal History: Unable to obtain any social information - Family History Father Family History: Reviewed- Non-Contributory - Social History Smoking Status: Unknown if ever smoked CD- Drugs: Yes Place of Residence: Home Review of Systems is unable to be obtained General: Weakness, Malaise Neurological: Confusion Physical Examination Temp Pulse Resp BP Pulse Ox 96.4 F L 63 18 109/76 100 09/05/19 20:00 09/05/19 20:00 09/05/19 20:00 09/05/19 20:00 09/05/19 20:00 General: In no apparent distress, Unresponsive HEENT: Atraumatic Neck: Supple Respiratory: Clear to auscultation bilaterally Cardiovascular: No edema, Regular rate/rhythm Gastrointestinal: Soft and benign, Non-distended Musculoskeletal: No clubbing, No contractures Integumentary: No rashes, No cyanosis Neurological: Abnormal strength Laboratory Data (last 24 hrs) 09/05/19 03:34: PT Cancelled, INR Cancelled, APTT Cancelled 09/05/19 03:34: WBC Cancelled, Hgb Cancelled, Hct Cancelled, Plt Count Cancelled 09/05/19 03:34: Sodium Cancelled, Potassium Cancelled, BUN Cancelled, Creatinine Cancelled, Glucose Cancelled, Magnesium Cancelled, Total Bilirubin Cancelled, AST Cancelled, ALT Cancelled, Alkaline Phosphatase Cancelled 09/05/19 03:30: PT 13.8 H, INR 1.17, APTT 20.4 L 09/05/19 03:30: WBC 9.0, Hgb 14.9, Hct 43.9, Plt Count 171 09/05/19 03:30: Sodium 150 H, Potassium 4.9, BUN 24 H, Creatinine 2.34 H, Glucose 98, Magnesium 2.1, Total Bilirubin 0.5, AST 98 H, ALT 111 H, Alkaline Phosphatase 118 H Imagings Data: EXAM DESCRIPTION: CT - Head C Spine Cap W Con - 09/05/2019 6:37 am CLINICAL HISTORY: The patient is 39 years old and is Male; PAIN TECHNIQUE: Axial computed tomography images of the head/brain and cervical spine without intravenous contrast. Sagittal and coronal reformatted images were created and reviewed. This CT exam was performed using one or more of the following dose reduction techniques: automated exposure control, adjustment of the mA and/or kV according to patient size, and/or use of iterative reconstruction technique. COMPARISON: CT of the head April 02, 2019 FINDINGS: BRAIN: Unremarkable. No hemorrhage. No significant white matter disease. No edema. VENTRICLES: Unremarkable. No ventriculomegaly. SKULL: No acute fracture. SINUSES: Unremarkable as visualized. No acute sinusitis. MASTOID AIR CELLS: Unremarkable as visualized. No mastoid effusion. VERTEBRAE: The vertebral body heights and alignment are maintained. No acute fracture. DISCS/SPINAL CANAL/NEURAL FORAMINA: The intervertebral disc spaces are maintained. No spinal canal stenosis. SOFT TISSUES: The soft tissues are normal. LUNG APICES: Unremarkable as visualized. TUBES, LINES AND DEVICES: Partial visualization of the endotracheal tube is noted. Partial visualization of an enteric tube is present. The enteric tube is noted looped within the cervical esophagus. IMPRESSION: 1. No acute intracranial findings. 2. No fracture or malalignment of the cervical spine. 3. Recommend repositioning of the enteric tube as it is coiled within the cervical esophagus. EXAM DESCRIPTION: RAD - Chest Single View - 09/05/2019 4:06 am CLINICAL HISTORY: COUGH, possible overdose, respiratory distress, unresponsive COMPARISON: Portable October 2011 TECHNIQUE: AP portable chest image was obtained 09/05/2019 4:06 am . FINDINGS: Endotracheal tube is in place. Tip is at the T4 level, top of the aortic arch. This is 3 cm above the kitty. No significant pulmonary edema or focal infiltrate. Heart and vasculature are accentuated by supine positioning. No measurable pleural effusion and no pneumothorax. No acute bony abnormality seen. No acute aortic findings suspected. IMPRESSION: No acute cardiopulmonary process. Endotracheal tube in good position. Conclusions/Impression: A/ ADDISON in the setting of hypovolemia Hypernatremia Acidosis CKD III with proteinuria Acute respiratory failure Toxic metabolic encephalopathy. P/ Continue current POC and Medications. Increase D5W 100ml/hr. No NSAIDs. AM labs. Daily weight. Thank you kindly for the consultation.
[2019-09-05] MEDS ORDERED: LEVETIRACETAM 500 MG/5 ML VIAL IV ONE (20:57)
[2019-09-05] MEDS: D5W 1,000 ML IV SCH (20:57)
[2019-09-05] MEDS ORDERED: NA CHLORIDE 0.9% 100 ML IV ONE (20:57)
[2019-09-06] MEDS ORDERED: D5W 1,000 ML IV ONE ×2 (01:20→11:29)
[2019-09-06] MEDS ORDERED: LORazepam 2 MG/ML VIAL ONE ×2 (03:38→07:40)
[2019-09-06] MEDS: LORazepam 2 MG/ML VIAL IV PRN ×3 (03:39→10:02)
[2019-09-06] MEDS ORDERED: propofoL 1,000 MG/100 ML VIAL IV ONE (04:34)
[2019-09-06] MEDS ORDERED: ACETAMINOPHEN 650MG/RECT SUPP PR ONE ×2 (05:31→05:34)
[2019-09-06 05:35] LABS: Protime INR 1.19
[2019-09-06 05:55] LABS: Absolute Lymphocytes (CBC) 0.9 K/uL (0.7-4.9); Basophils % 0.3 % (0-1.3); Hematocrit 42.6 % (39.6-49.0); Lymphocytes % 10.2 % (15.3-44.8); MPV 8.6 fL (7.6-11.3); RBC Red Blood Cell Count 4.58 M/uL (4.33-5.43)
[2019-09-06] MEDS ORDERED: PIPER/TAZO/NS 3.375gm 3.375 GM/100 ML BAG IVPB SCH (06:00)
[2019-09-06 06:01] LABS: Albumin 3.4 g/dL (3.4-5.0); Alkaline Phosphatase 103 U/L (45-117); BUN Blood Urea Nitrogen 23 mg/dL (7-18); Bicarbonate 24 mmol/L (21-32); Bilirubin Total 0.6 mg/dL (0.2-1.0); Glucose Level 109 mg/dL (74-106); Magnesium 2.3 mg/dL (1.8-2.4); Phosphorus 2.4 mg/dL (2.5-4.9); Potassium 3.7 mmol/L (3.5-5.1); Protein, Total 6.8 g/dL (6.4-8.2); Sodium Level 145 mmol/L (136-145)
[2019-09-06 06:04] LABS: ALT/SGPT 2161 U/L (12-78); AST/SGOT 2347 U/L (15-37)
[2019-09-06] MEDS ORDERED: ACETYLCYSTEINE IV ONE (06:13)
[2019-09-06] MEDS ORDERED: D5W IV ONE (06:13)
[2019-09-06] MEDS ORDERED: PIPER/TAZO/NS 3.375gm 3.375 GM/100 ML BAG ONE (06:26)
[2019-09-06] MEDS ORDERED: Acetylcysteine 6000mg/30mL IV ONE ×2 (06:26→06:45)
[2019-09-06] MEDS ORDERED: D5W 250 ML IV ONE (06:27)
[2019-09-06] MEDS ORDERED: POTASSIUM PHOS IN 0.9 % NACL 15 MMOL/250 ML BAG IV ONE (06:45)
[2019-09-06] MEDS: D5W 1,000 ML IV SCH ×2 (06:57→21:35)
[2019-09-06] MEDS ORDERED: ACETYLCYST 6,000 MG/30 ML VIAL PO ONE (07:00)
[2019-09-06 07:36] VITALS: BMI 3515.0
[2019-09-06] MEDS: FENTANYL CITR 100 MCG/2 ML IV PRN ×2 (07:36→10:02)
[2019-09-06] MEDS ORDERED: FENTANYL CITR 100 MCG/2 ML ONE (07:41)
[2019-09-06] MEDS ORDERED: ENOXAPARIN 40 MG/0.4 ML SQ ONE (08:39)
[2019-09-06] MEDS: levETIRAcetam 500 MG in NA CHLORIDE 0.9% 100 ML IV SCH ×3 (08:39→21:38)
[2019-09-06] MEDS: ENOXAPARIN 40 MG/0.4 ML SQ SCH ×2 (08:39→08:55)
--- NOTE | 2019-09-06 09:11 | P.PN ---
Subjective Date of Service: 09/06/19 Patient's liver function testing has become elevated. Concern for toxicity secondary to medication. Have given him a dose of Mucomyst. Pulmonary consultation and nephrology consultation appreciated. Discussed with Pulmonary whether patient can be weaned off and we can attempt to extubate today. Review of Systems is unable to be obtained Physical Examination - Vital Signs Temperature: 99.6 F Blood Pressure: 120/85 Pulse: 90 Respirations: 18 Pulse Ox (%): 100 - Physical Exam General: Other ( remains intubated and sedated) Respiratory: Clear to auscultation bilaterally, Normal air movement Cardiovascular: Regular rate/rhythm, Normal S1 S2, Systolic murmur Gastrointestinal: Soft and benign, Non-distended, No tenderness Musculoskeletal: No clubbing, No swelling Neurological: Other ( intubated and sedated) - Studies Microbiology Data (last 24 hrs): 09/05/19 03:00 Nasopharnyx Coronavirus COVID-19 PCR - Final 09/05/19 05:30 Cerebral Spinal Fluid Gram Stain - Final 09/05/19 05:30 Cerebral Spinal Fluid CSF Bacterial Antigens (Tube 1) - Final 09/05/19 03:00 Throat Group A Streptococcus Rapid Screen - Final 09/05/19 03:00 Nasopharnyx Influenza Type A Antigen Screen - Final 09/05/19 03:00 Nasopharnyx Influenza Type B Antigen Screen - Final Assessment & Plan - Problems (Diagnosis) (1) Respiratory failure Current Visit: Yes Status: Acute (2) Intoxication Current Visit: Yes Status: Acute (3) Acute kidney failure Current Visit: Yes Status: Acute (4) Dehydration Current Visit: Yes Status: Acute (5) Metabolic acidosis with respiratory acidosis Current Visit: Yes Status: Acute (6) Coagulopathy Current Visit: Yes Status: Acute (7) Acute hepatitis Current Visit: Yes Status: Acute - Plan -IV hydration -IV antibiotics -cultures are pending -check renal function, liver function testing, and electrolytes -EEG and continue antiepileptic -check thyroid studies and cortisol studies -bed check in place -physical therapy evaluation once mentation is improved -nephrology consultation for renal failure along with pulmonary consultation for vent management -monitor liver function testing -start Mucomyst -check Tylenol level again Discharge Plan: Home Plan to discharge in: Greater than 2 days - Advance Directives Does patient have a Living Will: No Does patient have a Durable POA for Healthcare: No - Code Status/Comfort Care Code Status: Full Code Critical Care: No Time Spent Managing PTS Care (In Minutes): 35
[2019-09-06 09:57] LABS: Bilirubin Total 0.6 mg/dL (0.2-1.0); Potassium 3.9 mmol/L (3.5-5.1); Protein, Total 6.5 g/dL (6.4-8.2)
--- NOTE | 2019-09-06 10:09 | RAD REPORT ---
EXAM DESCRIPTION: RAD - Chest Single View - 09/06/2019 10:02 am CLINICAL HISTORY: on vent/febrileintubation COMPARISON: Portable chest September 04 TECHNIQUE: AP portable chest image was obtained 09/06/2019 10:02 am . FINDINGS: Endotracheal tube is in place. Tip is the T4 level top of the aortic arch. This is 3-4 cm from the kitty. NG tube is in place. Tip is in the stomach which is off the field of view. Lung volumes are relatively low. No focal consolidation or mass. Interstitial pattern is not clearly different from the comparison when adjusting for the lower lung volume. Heart and vasculature are normal. No measurable pleural effusion and no pneumothorax. No acute bony abnormality seen. No acute aortic findings suspected. IMPRESSION: No new or progressive cardiopulmonary finding. Lung joiner are not clearly different from September 04 imaging. Endotracheal tube tip is T4 level, top of the aortic arch. NG tube is in good position.
[2019-09-06] MEDS ORDERED: ACETYLCYST 6,000 MG/30 ML VIAL PO SCH (11:00)
[2019-09-06] MEDS ORDERED: HALOPERIDOL LACT 5 MG/ML INJ ONE (11:52)
[2019-09-06] MEDS ORDERED: ACETYLCYSTEINE 8,000 MG in D5W 1,000 ML IV ONE (12:00)
[2019-09-06] MEDS ORDERED: VANCOMYCIN 1.5 GM in NA CHLORIDE 0.9% 500 ML IVPB ONE (13:00)
[2019-09-06] MEDS ORDERED: NA CHLORIDE 0.9% 100 ML ONE (20:22)
[2019-09-06] MEDS ORDERED: CEFEPIME/SWI 2gm 2 GM/20 ML SYR IV SCH (21:00)
[2019-09-06] MEDS ORDERED: LEVETIRACETAM 500 MG/5 ML VIAL IV ONE (21:24)
[2019-09-06] MEDS: CEFEPIME/SWI 2gm 2 GM/20 ML SYR IVP SCH (21:39)
--- NOTE | 2019-09-07 00:11 | CON ---
Reason For Consultation: Consultation called due to the patient having a possible seizure. History Of Present Illness: Mr. Nicole is a 39-year-old right-handed patient, who is admitt ed to [facility] after he was found unresponsive by EMS. The patient was found positive for methamphetamines and there was reportedly a witnessed seizure while in the emergency room. It is no t clearly described. His head CT scan showed no acute ischemic or hemorrhagic change. However, his liver function studies while initially normal showed very elevated ALT and AST suggesting acute react ion. He did have a normal white count, but his lactic acid level was elevated . Procalcit onin was negative. His CSF studies show elevated glucose of 74, which was consistent with blood gluc ose being elevated to around 166. His protein was normal and no evidence of central nervous system i nfection was identified with 0 white blood cells, 14 red blood cells. CSF was clear and colorless an d his cultures showed no growth. Past Medical History: Hepatitis. Allergies: UNKNOWN. Surgical History: Unknown. Family History: Unknown. Review of Systems: Not possible apparently as the patient received some Haldol and is just responding by nodding and not to sentences. Physical Examination: Vital Signs: Blood pressure 115/73, pulse 66, respiratory rate 18, temperature 98.1. He is extubate d. He was intubated earlier. Neurologic: On arousal, he did move arms and legs equally and was not exhibiting any focal deficits. Tone was normal. Assessment: Mr. Nicole is a 39-year-old patient with reported seizures and it should be noted that [facility] nurses and family member did indicate he had a possible seizure in the past, but was not on medicat ion. Plan: 1.Keppra 500 mg twice daily. 2.Hydration as indicated. 3.Antibiotics until all cultures are negative. 4.Continue with DVT prophylaxis. 5.He should be placed in a detox program after his discharge from [facility]. STEPHANIE/TREVIN Voice ID: [id number] Report ID: [id number]
[2019-09-07] MEDS: VANCOMYCIN 1.5 GM in NA CHLORIDE 0.9% 500 ML IVPB SCH ×2 (00:52→12:54)
[2019-09-07] MEDS: D5W 1,000 ML IV SCH ×2 (02:57→12:57)
--- NOTE | 2019-09-07 04:21 | P.PN ---
Subjective Date of Service: 09/07/19 Patient liver function test are improving. Patient started being wild and had to be extubated. Currently he is doing well & he is wanting to eat. Will start a diet and monitor his LFTs. As long as he is not suicidal & his LFTs are improving he should be able to go home in 48 hr. Review of Systems 10-point ROS is otherwise unremarkable Physical Examination - Vital Signs Temperature: 99.1 F Blood Pressure: 114/67 Pulse: 91 Respirations: 14 Pulse Ox (%): 98 - Physical Exam General: Alert, In no apparent distress, Oriented x3 Respiratory: Clear to auscultation bilaterally, Normal air movement Cardiovascular: Regular rate/rhythm, Normal S1 S2 Gastrointestinal: Normal bowel sounds, Soft and benign, Non-distended, No tenderness Musculoskeletal: No clubbing, No swelling, No tenderness Integumentary: No rashes Neurological: Normal strength at 5/5 x4 extr, Sensation intact, Cranial nerves 3-12 intact Lymphatics: No axilla or inguinal lymphadenopathy - Studies Microbiology Data (last 24 hrs): 09/05/19 05:30 Cerebral Spinal Fluid Gram Stain - Final 09/05/19 05:30 Cerebral Spinal Fluid CSF Bacterial Antigens (Tube 1) - Final Medications List Reviewed: Yes Assessment & Plan - Problems (Diagnosis) (1) Respiratory failure Current Visit: Yes Status: Acute (2) Intoxication Current Visit: Yes Status: Acute (3) Acute kidney failure Current Visit: Yes Status: Acute (4) Dehydration Current Visit: Yes Status: Acute (5) Metabolic acidosis with respiratory acidosis Current Visit: Yes Status: Acute (6) Coagulopathy Current Visit: Yes Status: Acute (7) Acute hepatitis Current Visit: Yes Status: Acute - Plan Continue with current plan of care as mentioned below: -IV hydration -IV antibiotics -cultures are negative so far -check renal function, liver function testing, and electrolytes; hopefully LFTs at peak and will continue to come down -EEG and continue antiepileptic -physical therapy evaluation if difficulty with ambulation -hopefully patient's completed Mycamine -Tylenol level is undetectable Discharge Plan: Home Plan to discharge in: Greater than 2 days - Advance Directives Does patient have a Living Will: No Does patient have a Durable POA for Healthcare: No - Code Status/Comfort Care Code Status: Full Code Critical Care: No Time Spent Managing PTS Care (In Minutes): 30
[2019-09-07] MEDS ORDERED: VANCOMYCIN 1.5 GM in NA CHLORIDE 0.9% 500 ML IVPB SCH (05:00)
[2019-09-07 06:10] LABS: Absolute Lymphocytes (CBC) 1.2 K/uL (0.7-4.9); Basophils % 0.5 % (0-1.3); Hematocrit 37.8 % (39.6-49.0); Lymphocytes % 18.1 % (15.3-44.8); MPV 8.9 fL (7.6-11.3); RBC Red Blood Cell Count 4.16 M/uL (4.33-5.43)
[2019-09-07 06:31] LABS: Protime INR 1.44
[2019-09-07 07:16] LABS: Albumin 2.7 g/dL (3.4-5.0); Alkaline Phosphatase 79 U/L (45-117); BUN Blood Urea Nitrogen 7 mg/dL (7-18); Bicarbonate 24 mmol/L (21-32); Glucose Level 130 mg/dL (74-106); Magnesium 1.8 mg/dL (1.8-2.4); NT PRO-BNP 123 pg/mL (<125); Phosphorus 1.5 mg/dL (2.5-4.9); Potassium 3.2 mmol/L (3.5-5.1); Protein, Total 5.9 g/dL (6.4-8.2); Sodium Level 139 mmol/L (136-145)
[2019-09-07 07:18] LABS: ALT/SGPT 1309 U/L (12-78); AST/SGOT 610 U/L (15-37)
--- NOTE | 2019-09-07 07:53 | RAD REPORT ---
EXAM DESCRIPTION: BEK[place] Single View09/07/2019 7:12 am CLINICAL HISTORY: Chest pain COMPARISON: 02/06/2020 FINDINGS: Endotracheal nasogastric tubes have been removed. The lungs appear clear of acute infiltrate. Heart is normal size
[2019-09-07 08:51] LABS: Blood Morphology Comment NOT SEEN (NOT SEEN); Platelet Estimate DECR
[2019-09-07] MEDS ORDERED: POTASSIUM 25 MEQ EFFERV TAB PO ONE ×2 (09:00→22:08)
[2019-09-07] MEDS ORDERED: MAGNESIUM SULFATE 1 gm IVPB 1 GM/100 ML BAG IV ONE (09:00)
[2019-09-07] MEDS: POTASS/SODIUM PHOSPHATE 1 PKT POWD.PACK PO SCH ×2 (09:00→12:54)
[2019-09-07] MEDS: CEFEPIME/SWI 2gm 2 GM/20 ML SYR IVP SCH ×2 (11:13→20:15)
[2019-09-07] MEDS ORDERED: ALBUTEROL 2.5 MG/3 ML NEB SOL NEB PRN (15:00)
[2019-09-07] MEDS ORDERED: IPRATROPIUM BROM 0.5MG/2.5ML NEB PRN (15:00)
[2019-09-07] MEDS: levETIRAcetam 500 MG in NA CHLORIDE 0.9% 100 ML IV SCH (20:15)
[2019-09-08] MEDS: D5W 1,000 ML IV SCH ×3 (02:35→20:15)
[2019-09-08] MEDS: VANCOMYCIN 1.5 GM in NA CHLORIDE 0.9% 500 ML IVPB SCH (02:35)
[2019-09-08 05:32] LABS: BUN Blood Urea Nitrogen 5 mg/dL (7-18); Bicarbonate 25 mmol/L (21-32); Glucose Level 111 mg/dL (74-106); Magnesium 1.9 mg/dL (1.8-2.4); Phosphorus 1.8 mg/dL (2.5-4.9); Potassium 3.8 mmol/L (3.5-5.1); Sodium Level 139 mmol/L (136-145)
--- NOTE | 2019-09-08 05:41 | P.PN ---
Subjective Date of Service: 09/08/19 Patient doing better with no new complaints. Continues to gradually improved. Possible discharge home later today if he continues to show improvement. Review of Systems 10-point ROS is otherwise unremarkable Physical Examination - Vital Signs Temperature: 98.9 F Blood Pressure: 123/53 Pulse: 99 Respirations: 18 Pulse Ox (%): 95 - Physical Exam General: Alert, In no apparent distress, Oriented x3 Respiratory: Clear to auscultation bilaterally, Normal air movement Cardiovascular: Regular rate/rhythm, Normal S1 S2, No murmurs Gastrointestinal: Normal bowel sounds, Soft and benign, Non-distended, No tenderness Musculoskeletal: No clubbing, No swelling, No tenderness Integumentary: No rashes - Studies Microbiology Data (last 24 hrs): 09/05/19 04:30 Blood - Blood Aerobic Blood Culture - Final 09/05/19 04:30 Blood - Blood Blood Culture Gram Stain - Final 09/05/19 04:30 Blood - Blood Anaerobic Blood Culture - Final 09/05/19 04:30 Blood - Blood Gram Stain - Final 09/05/19 03:00 Throat Culture & Sensitivity - Final NORMAL UPPER RESPIRATORY BRANDON GROWN. Medications List Reviewed: Yes Assessment & Plan - Problems (Diagnosis) (1) Respiratory failure Current Visit: Yes Status: Acute (2) Intoxication Current Visit: Yes Status: Acute (3) Acute kidney failure Current Visit: Yes Status: Acute (4) Dehydration Current Visit: Yes Status: Acute (5) Metabolic acidosis with respiratory acidosis Current Visit: Yes Status: Acute (6) Coagulopathy Current Visit: Yes Status: Acute (7) Acute hepatitis Current Visit: Yes Status: Acute - Plan Continue with current plan of care as mentioned below: -IV hydration -IV antibiotics -cultures are negative so far -check renal function, liver function testing, and electrolytes; hopefully LFTs at peak and will continue to come down -EEG and continue antiepileptic -physical therapy evaluation if difficulty with ambulation -hopefully patient's completed Mycamine -Tylenol level is undetectable - Advance Directives Does patient have a Living Will: No Does patient have a Durable POA for Healthcare: No - Code Status/Comfort Care Code Status: Full Code
[2019-09-08 07:06] LABS: Protime INR 1.39
[2019-09-08 07:15] LABS: Albumin 2.8 g/dL (3.4-5.0); Bilirubin Direct 0.4 mg/dL (0-0.2); Bilirubin Total 1.1 mg/dL (0.2-1.0); Protein, Total 6.1 g/dL (6.4-8.2)
[2019-09-08] MEDS ORDERED: POTASSIUM PHOS IN 0.9 % NACL 15 MMOL/250 ML BAG IV ONE (09:00)
[2019-09-08] MEDS: levETIRAcetam 500 MG in NA CHLORIDE 0.9% 100 ML IV SCH ×2 (09:00→19:59)
[2019-09-08] MEDS: ENOXAPARIN 40 MG/0.4 ML SQ SCH (09:32)
[2019-09-08] MEDS: CEFEPIME/SWI 2gm 2 GM/20 ML SYR IVP SCH ×2 (09:32→20:00)
[2019-09-08] MEDS ORDERED: POTASSIUM CL SA 10 MEQ TAB PO ONE (12:01)
[2019-09-08] MEDS: VANCOMYCIN 1.75 GM in NA CHLORIDE 0.9% 500 ML IVPB SCH (13:55)
[2019-09-08] MEDS ORDERED: POTASSIUM 25 MEQ EFFERV TAB PO ONE (22:00)
[2019-09-08 23:56] VITALS: O2SAT 100
[2019-09-09] MEDS: VANCOMYCIN 1.75 GM in NA CHLORIDE 0.9% 500 ML IVPB SCH ×2 (00:09→13:32)
[2019-09-09 04:57] LABS: BUN Blood Urea Nitrogen 9 mg/dL (7-18); Bicarbonate 26 mmol/L (21-32); Glucose Level 119 mg/dL (74-106); Phosphorus 3.7 mg/dL (2.5-4.9); Potassium 3.8 mmol/L (3.5-5.1); Sodium Level 142 mmol/L (136-145)
[2019-09-09] MEDS: D5W 1,000 ML IV SCH (05:08)
[2019-09-09] MEDS ORDERED: POTASSIUM CL SA 10 MEQ TAB PO ONE (06:00)
--- NOTE | 2019-09-09 06:09 | P.DS ---
Discharge Date: 09/09/19 Disposition: ROUTINE DISCHARGE Discharge Condition: GOOD Reason for Admission: Unresponsive and respiratory failure with possible seizure activity Consultations: NEUROLOGIST - Problems (1) Respiratory failure Status: Acute (2) Intoxication Status: Acute (3) Acute kidney failure Status: Acute (4) Dehydration Status: Acute (5) Metabolic acidosis with respiratory acidosis Status: Acute (6) Coagulopathy Status: Acute (7) Acute hepatitis Status: Acute Brief History of Present Illness: patient is a 39-year-old gentleman who was found unresponsive and brought in by EMS. Patient was not able to protect his airway and was not waking up so he was intubated. EMS noted that he was having seizure-like activity on the scene. Patient was brought to the emergency room for further evaluation. In the ER patient had multiple labs and diagnostic studies which mostly have been unremarkable. Patient was noted to be severely dehydrated with elevated sodium, and BUN and creatinine. He was also slightly hypotensive. He appears to be hypovolemic so will start him on some normal saline for 1 L and then change his IV fluids. Started on antiepileptics. Get an EEG. His liver function studies also does appear to be elevated. Will check a acetaminophen level. Monitor his LFTs did a day. He if his is seen minute at level is elevated or his LFTs started going up may consider using Mucomyst. At this time, we have no evidence that he overdosed on acetaminophen. We will wait for Tylenol level to come back. At this time he is still sedated. We will hopefully be able to get more information when he is more awake and able to give us some more information. At this time he remains intubated. Will get pulmonary and nephrology consultation. Hospital Course: PATIENT IS DOING WELL. PATIENT WORKED WITH PHYSICAL THERAPY. PATIENT CLINICALLY DOING MUCH BETTER. PATIENT WILL CONTINUE ON ANTI EPILEPTICS. AT THIS TIME, PATIENT IS STABLE FOR DISCHARGE WITH OUTPATIENT FOLLOW-UP. Vital Signs/Physical Exam: Temp Pulse Resp BP Pulse Ox 98.7 F 71 14 105/58 L 100 09/09/19 00:00 09/09/19 00:00 09/09/19 00:00 09/09/19 00:00 09/09/19 00:00 General: Alert, In no apparent distress, Oriented x3 Laboratory Data at Discharge: WBC 6.6 K/uL (4.3-10.9) D 09/07/19 05:45 Hgb 13.1 g/dL (13.6-17.9) L 09/07/19 05:45 Hct 37.8 % (39.6-49.0) L 09/07/19 05:45 Plt Count 74 K/uL (152-406) L 09/07/19 05:45 PT 16.3 SECONDS (9.5-12.5) H 09/08/19 05:43 INR 1.39 09/08/19 05:43 APTT 32.8 SECONDS (24.3-36.9) 09/08/19 05:43 Sodium 142 mmol/L (136-145) 09/09/19 04:31 Potassium 3.8 mmol/L (3.5-5.1) 09/09/19 04:31 BUN 9 mg/dL (7-18) 09/09/19 04:31 Creatinine 0.69 mg/dL (0.55-1.3) 09/09/19 04:31 Glucose 119 mg/dL (74-106) H 09/09/19 04:31 Phosphorus 3.7 mg/dL (2.5-4.9) D 09/09/19 04:31 Magnesium 1.9 mg/dL (1.8-2.4) 09/08/19 05:03 Total Bilirubin 1.1 mg/dL (0.2-1.0) H 09/08/19 05:43 AST 245 U/L (15-37) H D 09/08/19 05:43 ALT 858 U/L (12-78) H* D 09/08/19 05:43 Alkaline Phosphatase 92 U/L (45-117) 09/08/19 05:43 Home Medications: Cefdinir [Omnicef] 300 mg PO BID #14 capsule 09/09/19 Levetiracetam [Keppra] 500 mg PO BID #60 tablet 09/09/19 New Medications: Levetiracetam [Keppra] 500 mg PO BID #60 tablet Cefdinir [Omnicef] 300 mg PO BID #14 capsule Patient Discharge Instructions: OK TO DC IV AND DC HOME. FOLLOW-UP WITH PRIMARY CARE PROVIDER IN 1-2 WEEKS. FOLLOW-UP WITH neurologist IN 1-2 WEEKS. RETURN TO THE ER IF symptoms worsen. CALL or TEXT DR. SINGLETON AT [phone] IF ANY QUESTIONS REGARDING HOSPITAL STAY. PLEASE CALL THE FLOOR AT [phone] IF ANY MEDICATION OR NURSING QUESTIONS. Diet: Regular Activity: Fall precautions Followup: Александр Basurto MD [ASSOCIATE-ACTIVE - CAN ADMIT] -
[2019-09-09] MEDS ORDERED: TEMAZEPAM 15 MG CAP PO PRN (08:11)
[2019-09-09] MEDS: CEFEPIME/SWI 2gm 2 GM/20 ML SYR IVP SCH (08:42)
[2019-09-09] MEDS: ENOXAPARIN 40 MG/0.4 ML SQ SCH (08:43)
[2019-09-09] MEDS: levETIRAcetam 500 MG in NA CHLORIDE 0.9% 100 ML IV SCH (08:45)
[2019-09-09 09:28] LABS: Protime INR 1.28
[2019-09-09 09:44] LABS: Albumin 2.7 g/dL (3.4-5.0); Bilirubin Direct 0.3 mg/dL (0-0.2); Bilirubin Total 0.6 mg/dL (0.2-1.0); Protein, Total 6.2 g/dL (6.4-8.2)
[2019-09-09 12:27] LABS: Absolute Lymphocytes (CBC) 1.1 K/uL (0.7-4.9); Basophils % 0.4 % (0-1.3); Hematocrit 37.8 % (39.6-49.0); Lymphocytes % 18.4 % (15.3-44.8); MPV 8.6 fL (7.6-11.3); RBC Red Blood Cell Count 4.18 M/uL (4.33-5.43)
[2019-09-09 12:58] LABS: AST/SGOT 127 U/L (15-37); Alkaline Phosphatase 113 U/L (45-117); BUN Blood Urea Nitrogen 9 mg/dL (7-18); Bicarbonate 27 mmol/L (21-32); Bilirubin Total 0.6 mg/dL (0.2-1.0); Glucose Level 93 mg/dL (74-106); Potassium 4.2 mmol/L (3.5-5.1); Protein, Total 6.9 g/dL (6.4-8.2); Sodium Level 140 mmol/L (136-145)
[2019-09-09 12:59] VITALS: BP 114/67; TEMP 97.3
[2019-09-09 13:01] LABS: ALT/SGPT 600 U/L (12-78)
[2019-09-11 03:40] LABS: HBsAG Reactive (Nonreactive)
[2019-09-12 19:46] LABS: Hep C Virus RNA (PCR)log 6.89 log IU/mL
== END 2019-09-09 16:12 | disposition home or self-care (01) | DRG 208 ==
LOC: ER 03:27 → ERHOLD 05:38 → 2ND 09-06 17:03
PROVIDERS: ADMIT Hospitalist; ATTEND Hospitalist
PROC: 5A1935Z Respiratory Ventilation, Less than 24 Consecutive Hours (ICD-10-PCS; principal; 2019-09-05)
PROC: 0BH17EZ Insertion of Endotracheal Airway into Trachea, Via Natural or Artificial Opening (ICD-10-PCS; 2019-09-05)
PROC: 8E0ZXY6 Isolation (ICD-10-PCS; 2019-09-05)
DX: J96.00 Acute respiratory failure, unspecified whether with hypoxia or hypercapnia (principal); G92 Toxic encephalopathy; N17.9 Acute kidney failure, unspecified; D68.9 Coagulation defect, unspecified; B17.9 Acute viral hepatitis, unspecified; E87.4 Mixed disorder of acid-base balance; E87.0 Hyperosmolality and hypernatremia; E86.0 Dehydration; I95.9 Hypotension, unspecified; E86.1 Hypovolemia; N18.3 Chronic kidney disease, stage 3 (moderate); R50.9 Fever, unspecified; Z88.5 Allergy status to narcotic agent; Z20.828 Contact with and (suspected) exposure to other viral communicable diseases
CPT/HCPCS: 31500; 36415; 51702; 62270; 70450; 71045; 71260; 72125; 74177; 80048; 80053; 80074; 80076; 80202; 80307; 80320; 80329; 81003; 82805; 82945; 82947; 83605; 83615; 83735; 83880; 84100; 84132; 84145; 84157; 84484; 85025; 85379; 85610; 85730; 86140; 86403; 87040; 87070; 87081; 87205; 87522; 87804; 89050; 93005; 94002; 94003; 97112; 97116; 97161; 99291; J0132; J0330; J0692; J0696; J1630; J1650; J1953; J2250; J2543; J2704; J3010; J3370; J3475; J7030; J7040; J7050; J7060; Q9967; U0002

== ENCOUNTER 2019-09-13 20:40 | Emergency (ER) | payer SELFPAY ==
--- OUTSIDE RECORDS SUMMARY | 2019-09-13 20:42 | XMS REPORT | Continuity of Care Document ---
:1980 Author Organization [facility] t Address [address] [place] [address] Dr. Devlin [address] [place] [id number] Care Team Providers Name Role Phone Unavailable Unavailable Unavailable Problems This patient has no known problems. Allergies, Adverse Reactions, Alerts This patient has no known allergies or adverse reactions. Medications This patient has no known medications. Procedures This patient has no known procedures. Results This patient has no known results.
--- NOTE | 2019-09-13 21:56 | ER ---
Nurse's Notes [facility] Name: Tyree Nicole Age: 39 yrs Sex: Male : 1980 Arrival Date: 09/13/2019 Time: 20:44 Bed 2 Private MD: Diagnosis: Methamphetamine Abuse Presentation: 09/12 20:45 Chief complaint: EMS states: "The pt was found running [place] bridge naked. screaming jd3 about buckets of blood and having delusions. when asked, he does not respond appropriately and is on unknown drugs. the pt in the past has taken meth and has lead to similar problems.". Coronavirus screen: Proceed with normal triage. Ebola Screen: Patient negative for fever greater than or equal to 101.5 degrees Fahrenheit, and additional compatible Ebola Virus Disease symptoms. Initial Sepsis Screen: Does the patient meet any 2 criteria? No. Patient's initial sepsis screen is negative. Does the patient have a suspected source of infection? No. Patient's initial sepsis screen is negative. Risk Assessment: Do you want to hurt yourself or someone else? Patient reports no desire to harm self or others. Onset of symptoms was September 13, 2019. 20:45 Method Of Arrival: EMS: [facility] jd3 20:45 Acuity: ANDREW 2 jd3 Triage Assessment: 20:45 Pain: Unable to use pain scale. Patient appears agitated. rr5 20:45 General: Appears in no apparent distress. uncomfortable. rr5 20:45 General: Behavior is agitated. rr5 Historical: - Allergies: 20:49 Unable to obtain; jd3 - PMHx: 20:49 Hepatitis; jd3 - PSHx: 20:49 Unable to obtain; jd3 - Immunization history:: Adult Immunizations unknown. - Social history:: Smoking status: unknown. Screenin:45 Fall Risk IV access (20 points). Total Aguillon Fall Scale indicates No Risk (0-24 pts). rr5 21:15 Abuse screen: Denies threats or abuse. Denies injuries from another. Nutritional rr5 screening: No deficits noted. Tuberculosis screening: No symptoms or risk factors identified. Assessment: 20:45 Neuro: Level of Consciousness is awake, alert, obeys commands, Oriented to person, rr5 place, time. Cardiovascular: Capillary refill < 3 seconds Patient's skin is warm and dry. 20:45 General: Appears in no apparent distress. uncomfortable, unkempt, Behavior is agitated, rr5 in via EMS and [place] police naked on handcuff redness on the wrist area noted.. Respiratory: Airway is patent Respiratory effort is even, unlabored, Respiratory pattern is regular, symmetrical. Derm: Skin Wound noted back, chest, abdomen, right arm, left arm, right leg and left leg Wound is multiple abrasions noted. Rash noted that is red, raised, on abdomen. Musculoskeletal: Capillary refill < 3 seconds. 21:05 Reassessment: Patient appears in no apparent distress at this time. Patient is alert, rr5 oriented x 3, equal unlabored respirations, skin warm/dry/pink. patient refused to have any procedure. 21:25 Reassessment: Patient appears in no apparent distress at this time. Patient is alert, rr5 oriented x 3, equal unlabored respirations, skin warm/dry/pink. seen and examined by ED provider. patient refused all the work up and wants to leave. ED provider with order to AMA. landing signal officer released the handcuff and said no charges filed against him. Vital Signs: 20:49 BP 139 / 77; Pulse 144; Resp 20 S; Temp 100.0(A); Pulse Ox 97% on R/A; Weight 81.65 kg jd3 (R); 21:30 BP 137 / 72; Pulse 92; Resp 18; Temp 98.9(TE); Pulse Ox 98% on R/A; sg [place] Coma Score: 21:30 Eye Response: spontaneous(4). Verbal Response: oriented(5). Motor Response: obeys rr5 commands(6). Total: 15. ED Course: 20:44 Patient arrived in ED. jd3 20:49 Triage completed. jd3 20:50 Arm band placed on. jd3 20:50 EKG completed in triage. Results shown to . jd3 20:50 Patient has correct armband on for positive identification. Bed in low position. Call rr5 light in reach. Side rails up X2. security police officer at bedside, placed on handcuff. 21:00 Inserted saline lock: 20 gauge in right forearm, using aseptic technique. Blood rr5 collected. 21:00 EKG done, by ED staff, reviewed by Dominic Veliz MD. rr5 21:01 Dominic Veliz MD is Attending Physician. [facility] 21:30 No provider procedures requiring assistance completed. IV discontinued, intact, rr5 bleeding controlled, No redness/swelling at site. Pressure dressing applied. Administered Medications: No medications were administered Outcome: 21:35 AMA Other refused to sign AMA form rr5 21:35 Condition: stable rr5 21:35 Discharge instructions given to patient, Instructed on discharge instructions, follow up and referral plans. Demonstrated understanding of instructions, follow-up care. 21:57 Patient left the ED. sg Signatures: Rom Farooq RN RN sg Isaias Maldonado RN RN jd3 Franko Spencer RN RN rr5 Dominic Veliz MD MD [facility] Corrections: (The following items were deleted from the chart) 20:52 20:49 BP 139 / 77; Pulse 144bpm; Resp 20bpm; Spontaneous; Pulse Ox 97% RA; Temp 100.0F jd3 Axillary; jd3
--- NOTE | 2019-09-13 21:56 | EDPHYS ---
Physician Documentation [facility] Name: Tyree Nicole Age: 39 yrs Sex: Male : 1980 Arrival Date: 09/13/2019 Time: 20:44 Bed 2 Private MD: ED Physician Dominic Veliz HPI: 09/12 21:40 This 39 yrs old Male presents to ER via EMS with complaints of Drug Abuse. 7 21:40 The patient presents to the emergency department with a history of substance abuse, [facility] Type: methamphetamines. 21:42 The patient presents to the emergency department with a history of substance abuse, the [facility] amount of abuse is unknown, for years. 21:43 Onset: The symptoms/episode began/occurred today. Past psychiatric history:. 7 21:44 Past psychiatric history: Prior diagnosis: no previous psychiatric diagnosis known. [facility] Associated signs and symptoms: Pertinent negatives: abdominal pain, anxiety, chest pain, chills, delusions, depression, fever, hallucinations, headache, homicidal ideation, nausea, night sweats, palpitations, paranoia, shortness of breath, suicide ideation, tremor, vomiting. Severity of symptoms: At their worst the symptoms were moderate today, in the emergency department the symptoms have improved moderately. 21:47 Patient admits to using methamphetamine today. Police found patient running around [facility] outside without clothing. He denies any headache, chest pain, SOB, abdominal pain, fever, cough, nausea, vomiting, numbness/tingling, or weakness. He denies any depression, suicidal or homicidal ideation, auditory or visual hallucinations.. Historical: - Allergies: 20:49 Unable to obtain; jd3 - PMHx: 20:49 Hepatitis; jd3 - PSHx: 20:49 Unable to obtain; jd3 - Immunization history:: Adult Immunizations unknown. - Social history:: Smoking status: unknown. ROS: 21:47 Constitutional: Negative for fever, chills, and weight loss, Eyes: Negative for injury, mh7 pain, redness, and discharge, ENT: Negative for injury, pain, and discharge, Neck: Negative for injury, pain, and swelling, Cardiovascular: Negative for chest pain, palpitations, and edema, Respiratory: Negative for shortness of breath, cough, wheezing, and pleuritic chest pain, Abdomen/GI: Negative for abdominal pain, nausea, vomiting, diarrhea, and constipation, Back: Negative for injury and pain, : Negative for injury, bleeding, discharge, and swelling, MS/Extremity: Negative for injury and deformity, Skin: Negative for injury, rash, and discoloration, Neuro: Negative for headache, weakness, numbness, tingling, and seizure, Psych: Negative for depression, anxiety, suicide ideation, homicidal ideation, and hallucinations, Allergy/Immunology: Negative for hives, rash, and allergies, Endocrine: Negative for neck swelling, polydipsia, polyuria, polyphagia, and marked weight changes, Hematologic/Lymphatic: Negative for swollen nodes, abnormal bleeding, and unusual bruising. Exam: 21:47 Head/Face: Normocephalic, atraumatic. Eyes: Pupils equal round and reactive to light, mh7 extra-ocular motions intact. Lids and lashes normal. Conjunctiva and sclera are non-icteric and not injected. Cornea within normal limits. Periorbital areas with no swelling, redness, or edema. Neck: Trachea midline, no thyromegaly or masses palpated, and no cervical lymphadenopathy. Supple, full range of motion without nuchal rigidity, or vertebral point tenderness. No Meningismus. Chest/axilla: Normal chest wall appearance and motion. Nontender with no deformity. No lesions are appreciated. 21:47 Respiratory: Lungs have equal breath sounds bilaterally, clear to auscultation and percussion. No rales, rhonchi or wheezes noted. No increased work of breathing, no retractions or nasal flaring. Abdomen/GI: Soft, non-tender, with normal bowel sounds. No distension or tympany. No guarding or rebound. No evidence of tenderness throughout. Back: No spinal tenderness. No costovertebral tenderness. Full range of motion. Skin: Warm, dry with normal turgor. Normal color with no rashes, no lesions, and no evidence of cellulitis. MS/ Extremity: Pulses equal, no cyanosis. Neurovascular intact. Full, normal range of motion. Neuro: Awake and alert, GCS 15, oriented to person, place, time, and situation. Cranial nerves II-XII grossly intact. Motor strength 5/5 in all extremities. Sensory grossly intact. Cerebellar exam normal. Normal gait. 21:47 Constitutional: The patient appears in no acute distress, alert, awake, anxious. 21:47 Cardiovascular: Rate: tachycardic, Rhythm: regular, Pulses: no pulse deficits are appreciated, Heart sounds: normal, normal S1and S2, Edema: is not appreciated, JVD: is not appreciated. 21:47 Psych: Behavior/mood is anxious, Affect is calm, Oriented to person, place, time, Patient has no thoughts/intents to harm self or others. Judgement / Insight is normal. Memory is normal. Delusions/hallucinations are not present. Vital Signs: 20:49 BP 139 / 77; Pulse 144; Resp 20 S; Temp 100.0(A); Pulse Ox 97% on R/A; Weight 81.65 kg jd3 (R); 21:30 BP 137 / 72; Pulse 92; Resp 18; Temp 98.9(TE); Pulse Ox 98% on R/A; sg [place] Coma Score: 21:30 Eye Response: spontaneous(4). Verbal Response: oriented(5). Motor Response: obeys rr5 commands(6). Total: 15. MDM: 21:31 Patient medically screened. mh7 21:47 Differential diagnosis: drug withdrawal. acute psychotic break, psychosis secondary to mh7 non-compliance, Substance Abuse. Data reviewed: vital signs, nurses notes, EMS record. Data interpreted: escrow representative: rate is 119 beats/min, rhythm is sinus tachycardia, Interpretation: tachycardia, Pulse oximetry: on room air is 97 %. Interpretation: normal. Counseling: I had a detailed discussion with the patient and/or guardian regarding: the historical points, exam findings, and any diagnostic results supporting the discharge/admit diagnosis, the presence of at least one elevated blood pressure reading (>120/80) during this emergency department visit. Refusal of service: The patient/guardian displays adequate decision making capability and despite a detailed discussion of alternatives, benefits, risks, and consequences refuses: all lab tests, Medications. Administered Medications: No medications were administered Disposition: 09/13/19 21:55 Patient has left against medical advice. Impression: Methamphetamine Abuse. - Patients states they are going to Home. - Condition is Stable. - Discharge Instructions: Stimulant Use Disorder-Methamphetamines. Follow up: Private Physician; When: 1 - 2 days; Reason: Recheck today's complaints, Continuance of care, Re-evaluation by your physician. - Problem is an acute exacerbation. - Symptoms have improved. Signatures: Rom Farooq RN RN sg Isaias Maldonado RN RN Dominic Ferreira MD MD mh7 Corrections: (The following items were deleted from the chart) 21:57 21:55 09/13/2019 21:55 Patients has left against medical advice. Impression: sg Methamphetamine Abuse. Patient states they are going to Home. Condition is Stable. Follow up: Private Physician; When: 1 - 2 days; Reason: Recheck today's complaints, Continuance of care, Re-evaluation by your physician. Problem is an acute exacerbation. Symptoms have improved. mh7
[2019-09-13 22:13] VITALS: BP 137/72; TEMP 98.9; O2SAT 98
== END 2019-09-13 21:57 | disposition left against medical advice (07) ==
LOC: ER 20:40
DX: F15.10 Other stimulant abuse, uncomplicated (principal); K75.9 Inflammatory liver disease, unspecified
CPT/HCPCS: 93005; 99284

== ENCOUNTER 2019-11-23 02:03 | Emergency (ER) | payer SELFPAY ==
[2019-11-23 02:48] LABS: Absolute Lymphocytes (CBC) 1.8 K/uL (0.7-4.9); Basophils % 1.1 % (0-1.3); Hematocrit 33.2 % (39.6-49.0); Lymphocytes % 43.8 % (15.3-44.8); MPV 8.4 fL (7.6-11.3); RBC Red Blood Cell Count 3.73 M/uL (4.33-5.43)
[2019-11-23 02:52] LABS: Protime INR 1.05
[2019-11-23] MEDS ORDERED: NA CHLORIDE 0.9% 1,000 ML ONE (02:58)
[2019-11-23 03:13] LABS: ALT/SGPT 76 U/L (12-78); AST/SGOT 65 U/L (15-37); Albumin 3.5 g/dL (3.4-5.0); Alkaline Phosphatase 112 U/L (45-117); BUN Blood Urea Nitrogen 14 mg/dL (7-18); Bicarbonate 24 mmol/L (21-32); Bilirubin Direct 0.2 mg/dL (0-0.2); Bilirubin Total 0.3 mg/dL (0.2-1.0); Glucose Level 89 mg/dL (74-106); Potassium 3.5 mmol/L (3.5-5.1); Protein, Total 7.5 g/dL (6.4-8.2); Sodium Level 143 mmol/L (136-145)
--- NOTE | 2019-11-23 03:21 | EDPHYS ---
Physician Documentation [facility] Name: Tyree Nicole Age: 39 yrs Sex: Male : 1980 Arrival Date: 11/23/2019 Time: 02:05 Bed 4 Private MD: ED Physician Dorian Cobb HPI: 11/22 03:14 This 39 yrs old Male presents to ER via EMS with complaints of anxiety and phong substance abuse. 03:14 The patient presents to the emergency department with anxiety. Onset: The phong symptoms/episode began/occurred just prior to arrival. Past psychiatric history: Prior diagnosis: addiction history, depression. threatened. Associated signs and symptoms: The patient has no apparent associated signs or symptoms. Severity of symptoms: At their worst the symptoms were mild moderate in the emergency department the symptoms have improved moderately. The patient has experienced similar episodes in the past, multiple times. Historical: - Allergies: 02:13 Unable to obtain; bb - Home Meds: 02:13 Unable to obtain [Active]; bb - PMHx: 02:13 Hepatitis; PTSD; Anxiety; Depression; Drug Abuse; Hypoglycemia; bb - PSHx: 02:13 Unable to obtain; bb - Immunization history:: Adult Immunizations unknown. - Social history:: Smoking status: Patient reports the use of cigarette tobacco products, Patient uses alcohol, street drugs, marijuana, Methamphetamine (Meth). - Family history:: not pertinent. ROS: 03:14 Constitutional: Negative for fever, chills, and weight loss, Eyes: Negative for injury, phong pain, redness, and discharge, ENT: Negative for injury, pain, and discharge, Neck: Negative for injury, pain, and swelling, Cardiovascular: Negative for chest pain, palpitations, and edema, Respiratory: Negative for shortness of breath, cough, wheezing, and pleuritic chest pain, Abdomen/GI: Negative for abdominal pain, nausea, vomiting, diarrhea, and constipation, Back: Negative for injury and pain, : Negative for injury, bleeding, discharge, and swelling, MS/Extremity: Negative for injury and deformity, Skin: Negative for injury, rash, and discoloration, Neuro: Negative for headache, weakness, numbness, tingling, and seizure, Psych: Negative for depression, anxiety, suicide ideation, homicidal ideation, and hallucinations, Allergy/Immunology: Negative for hives, rash, and allergies, Endocrine: Negative for neck swelling, polydipsia, polyuria, polyphagia, and marked weight changes, Hematologic/Lymphatic: Negative for swollen nodes, abnormal bleeding, and unusual bruising. Exam: 03:14 Constitutional: This is a well developed, well nourished patient who is awake, alert, phong and in no acute distress. Head/Face: Normocephalic, atraumatic. Eyes: Pupils equal round and reactive to light, extra-ocular motions intact. Lids and lashes normal. Conjunctiva and sclera are non-icteric and not injected. Cornea within normal limits. Periorbital areas with no swelling, redness, or edema. ENT: Nares patent. No nasal discharge, no septal abnormalities noted. Tympanic membranes are normal and external auditory canals are clear. Oropharynx with no redness, swelling, or masses, exudates, or evidence of obstruction, uvula midline. Mucous membranes moist. Neck: Trachea midline, no thyromegaly or masses palpated, and no cervical lymphadenopathy. Supple, full range of motion without nuchal rigidity, or vertebral point tenderness. No Meningismus. Chest/axilla: Normal chest wall appearance and motion. Nontender with no deformity. No lesions are appreciated. Cardiovascular: Regular rate and rhythm with a normal S1 and S2. No gallops, murmurs, or rubs. Normal PMI, no JVD. No pulse deficits. Respiratory: Lungs have equal breath sounds bilaterally, clear to auscultation and percussion. No rales, rhonchi or wheezes noted. No increased work of breathing, no retractions or nasal flaring. Abdomen/GI: Soft, non-tender, with normal bowel sounds. No distension or tympany. No guarding or rebound. No evidence of tenderness throughout. Back: No spinal tenderness. No costovertebral tenderness. Full range of motion. Male : Normal genitalia with no discharge or lesions. Skin: Warm, dry with normal turgor. Normal color with no rashes, no lesions, and no evidence of cellulitis. MS/ Extremity: Pulses equal, no cyanosis. Neurovascular intact. Full, normal range of motion. Neuro: Awake and alert, GCS 15, oriented to person, place, time, and situation. Cranial nerves II-XII grossly intact. Motor strength 5/5 in all extremities. Sensory grossly intact. Cerebellar exam normal. Normal gait. Psych: Awake, alert, with orientation to person, place and time. Behavior, mood, and affect are within normal limits. 03:20 ECG was reviewed by the Attending Physician. [facility] Vital Signs: 02:10 BP 112 / 65; Pulse 76; Resp 24 S; Temp 97.6(O); Pulse Ox 100% on R/A; Weight 74.84 kg bb (R); Height 5 ft. 10 in. (177.80 cm) (R); 03:00 BP 118 / 84; Pulse 78; Resp 20; Pulse Ox 100% on R/A; lp1 02:10 Body Mass Index 23.67 (74.84 kg, 177.80 cm) bb MDM: 02:10 Patient medically screened. [facility] 03:16 Differential diagnosis: drug withdrawal. acute psychotic break, depression. phong Differential Diagnosis altered mental status. Data reviewed: vital signs, nurses notes, EMS record, lab test result(s), EKG. Data interpreted: switch house operator: rate is 76 beats/min, rhythm is regular. Test interpretation: by ED physician or midlevel provider: ECG. Counseling: I had a detailed discussion with the patient and/or guardian regarding: the historical points, exam findings, and any diagnostic results supporting the discharge/admit diagnosis, lab results, radiology results, the need for outpatient follow up, for definitive care, a psychiatrist. 11/22 02:09 Order name: Acetaminophen; Complete Time: 03:19 [facility] 11/22 02:09 Order name: Basic Metabolic Panel; Complete Time: 03:19 [facility] 11/22 02:09 Order name: CBC with Diff; Complete Time: 03:14 [facility] 11/22 02:09 Order name: ETOH Level; Complete Time: 03:14 [facility] 11/22 02:09 Order name: Hepatic Function; Complete Time: 03:19 [facility] 11/22 02:09 Order name: PT-INR; Complete Time: 03:14 [facility] 11/22 02:09 Order name: Ptt, Activated; Complete Time: 03:14 [facility] 11/22 02:09 Order name: Salicylate; Complete Time: 03:14 [facility] 11/22 02:09 Order name: EKG; Complete Time: 02:10 [facility] 11/22 02:09 Order name: EKG - Nurse/Tech; Complete Time: 02:35 [facility] 11/22 02:09 Order name: IV Saline Lock; Complete Time: 03:24 phong 11/22 02:09 Order name: Labs collected and sent; Complete Time: 02:35 phong EC:20 Rate is 72 beats/min. Rhythm is regular. QRS Gove is Normal. LA interval is normal. QRS phong interval is normal. QT interval is normal. No Q waves. T waves are Normal. No ST changes noted. Clinical impression: NSR w/ Non-specific ST/T Changes and No evidence of ischemia. Interpreted by me. Reviewed by me. Administered Medications: 02:52 Drug: NS 0.9% 1000 ml Route: IV; Rate: 1 bolus; Site: left forearm; lp1 03:34 Follow up: IV Status: Completed infusion; IV Intake: 1000ml lp1 Disposition: 11/23/19 03:19 Discharged to Home. Impression: Anxiety disorder, unspecified, Abuse of non-psychoactive substances. - Condition is Stable. - Discharge Instructions: Panic Attacks, Substance Use Disorder, Panic Attacks, [id number]. - Prescriptions for Hydroxyzine HCl 25 mg Oral Tablet - take 1 tablet by ORAL route every 6 hours As needed; 30 tablet. - Medication Reconciliation Form, Thank You Letter, Antibiotic Education, Prescription Opioid Use form. - Follow up: Private Physician; When: 2 - 3 days; Reason: Recheck today's complaints, Continuance of care, Re-evaluation by your physician. - Problem is new. - Symptoms have improved. Signatures: Dispatcher [employer] EDMS Dorian Cobb MD MD cha Ballard, Brenda, RN RN Chikis Radford RN RN lp1 Corrections: (The following items were deleted from the chart) 03:35 03:19 11/23/2019 03:19 Discharged to Home. Impression: Anxiety disorder, unspecified; lp1 Abuse of non-psychoactive substances. Condition is Stable. Discharge Instructions: Panic Attacks, Substance Use Disorder, Panic Attacks, [id number]. Forms are Medication Reconciliation Form, Thank You Letter, Antibiotic Education, Prescription Opioid Use. Follow up: Private Physician; When: 2 - 3 days; Reason: Recheck today's complaints, Continuance of care, Re-evaluation by your physician. Problem is new. Symptoms have improved. phong
--- NOTE | 2019-11-23 03:21 | ER ---
Nurse's Notes [facility] Name: Tyree Nicole Age: 39 yrs Sex: Male : 1980 Arrival Date: 11/23/2019 Time: 02:05 Bed 4 Private MD: Diagnosis: Anxiety disorder, unspecified;Abuse of non-psychoactive substances Presentation: 11/22 02:10 Chief complaint: EMS states: they were toned out for report of pt "tweaking". bb Coronavirus screen: At this time, the client does not indicate any symptoms associated with coronavirus-19. Ebola Screen: No symptoms or risks identified at this time. Initial Sepsis Screen: Does the patient meet any 2 criteria? No. Patient's initial sepsis screen is negative. Does the patient have a suspected source of infection? No. Patient's initial sepsis screen is negative. Risk Assessment: Do you want to hurt yourself or someone else? Patient reports no desire to harm self or others. Onset of symptoms is unknown. 02:10 Method Of Arrival: EMS: [facility] bb 02:10 Acuity: ANDREW 2 bb Historical: - Allergies: 02:13 Unable to obtain; bb - Home Meds: 02:13 Unable to obtain [Active]; bb - PMHx: 02:13 Hepatitis; PTSD; Anxiety; Depression; Drug Abuse; Hypoglycemia; bb - PSHx: 02:13 Unable to obtain; bb - Immunization history:: Adult Immunizations unknown. - Social history:: Smoking status: Patient reports the use of cigarette tobacco products, Patient uses alcohol, street drugs, marijuana, Methamphetamine (Meth). - Family history:: not pertinent. Screenin:30 Abuse screen: Denies threats or abuse. Denies injuries from another. Nutritional lp1 screening: No deficits noted. Tuberculosis screening: No symptoms or risk factors identified. Fall Risk None identified. Assessment: 02:30 General: Appears slender, Behavior is restless. Pain: Denies pain. Neuro: Level of lp1 Consciousness is awake, alert, obeys commands, Oriented to person, place, situation. Cardiovascular: Patient's skin is warm and dry. Respiratory: Airway is patent Respiratory effort is even, Respiratory pattern is Patient appears to hyperventilate, coached to slow breathing, resolved to even respirations. GI: Abdomen is flat. : No signs and/or symptoms were reported regarding the genitourinary system. EENT: No signs and/or symptoms were reported regarding the EENT system. Derm: Skin is intact, Skin is dry, Skin is normal. Musculoskeletal: No deficits noted. 03:34 Reassessment: Patient is alert, oriented x 3, equal unlabored respirations, skin bb warm/dry/pink. pt verbalized understanding of and agrees to plan of care discharge instructions given pt states he has not eaten in a couple of days provided him with sandwiches, drinks, chips, and fruit cups. Pt ambulated with steady gait to exit. Vital Signs: 02:10 BP 112 / 65; Pulse 76; Resp 24 S; Temp 97.6(O); Pulse Ox 100% on R/A; Weight 74.84 kg bb (R); Height 5 ft. 10 in. (177.80 cm) (R); 03:00 BP 118 / 84; Pulse 78; Resp 20; Pulse Ox 100% on R/A; lp1 02:10 Body Mass Index 23.67 (74.84 kg, 177.80 cm) bb ED Course: 02:05 Patient arrived in ED. bb 02:08 Dorian Cobb MD is Attending Physician. [facility] 02:12 Triage completed. bb 02:13 Arm band placed on Patient placed in an exam room, on a stretcher, on oncology coordinator, bb on pulse oximetry. EKG completed in triage. Results shown to MD. 02:25 Missed attempt(s): 22 gauge in right hand. lp1 02:25 Initial lab(s) drawn, by me, sent to lab. lp1 02:30 Patient has correct armband on for positive identification. Bed in low position. Call lp1 light in reach. Side rails up X2. 02:34 Chikis Rosario, RN is Primary Nurse. lp1 02:50 Inserted saline lock: 20 gauge in left forearm, using aseptic technique. rr5 03:33 No provider procedures requiring assistance completed. lp1 03:34 IV discontinued, No redness/swelling at site. Pressure dressing applied. lp1 Administered Medications: 02:52 Drug: NS 0.9% 1000 ml Route: IV; Rate: 1 bolus; Site: left forearm; lp1 03:34 Follow up: IV Status: Completed infusion; IV Intake: 1000ml lp1 Intake: 03:34 IV: 1000ml; Total: 1000ml. lp1 Outcome: 03:19 Discharge ordered by . phong 03:34 Discharged to home ambulatory. lp1 03:34 Condition: good 03:34 Discharge instructions given to patient, Instructed on discharge instructions, follow up and referral plans. medication usage, Demonstrated understanding of instructions, follow-up care, medications, Prescriptions given X 1. 03:35 Patient left the ED. lp1 Signatures: Dorian Cobb MD MD cha Ballard, Brenda, RN RN bb Chikis Rosario RN RN lp1 Farnko Spencer RN RN rr5
[2019-11-23 03:42] VITALS: TEMP 97.6; O2SAT 100
[2019-11-23 03:44] VITALS: BP 118/84
--- NOTE | 2019-11-23 08:20 | EKG ---
Test Date: 2019-11-23 Test Time: 02:10:57 Microgrinder Operator: TEDDY MEASUREMENT RESULTS: Intervals: Rate: 72 SC: 158 QRSD: 82 QT: 390 QTc: 427 [place]: P: 69 SC: 158 QRS: 58 T: 25 INTERPRETIVE STATEMENTS: Normal sinus rhythm with sinus arrhythmia Normal ECG Compared to ECG 09/13/2019 20:53:23 Sinus tachycardia no longer present Electronically Signed On 11-23-19 08:19:15 CDT by Hayes Maradiaga
--- OUTSIDE RECORDS SUMMARY | 2019-11-27 22:17 | XMS REPORT | Summary of Care ---
:[address] [facility] - [facility] Address [address] [place] [address] Care Team Providers Name Role Phone Mcc, Maday Primary Care Provider Reason for Referral Radiology Services (STAT) Status Reason Specialty Diagnoses / Referred By Referred To Procedures Contact Contact New Request Diagnostic Diagnoses Foreign body in penis, initial encounter Gilson Foster, Radiology Procedures XR PELVIS <3 VW XR PELVIS 3+ VW [address] [place] [address] [address] [place] [phone] Reason for Visit Reason Comments Other penis injury, self inflicted Auth/Cert Status Reason Specialty Diagnoses / Referred By Referred To Procedures Contact Contact Emergency Medicine Diagnoses PLASTIC FORK IN PENIS [facility] [address] [place] [address] Fax: Encounter Details Date Type Department Care Team Description 10/14/2019 Emergency [facility] Gilson Foster MD Foreign body in penis, Department [address] [place] [address] initial encounter [address] [facility] [address] (Primary Dx) [place] [address] [phone] Allergies Active Allergy Reactions Severity Noted Date Comments Codeine Swelling 04/26/2013 Acetaminophen Swelling 10/14/2019 documented as of this encounter (statuses as of 10/14/2019) Medications Medication Sig Dispensed Refills Start Date End Date Status doxycycline Take 1 Cap by 20 Cap 0 04/27/2013 Act nas (VIBRAMYCIN) 100 mg mouth 2 (two) capsule times daily. traMADOL (ULTRAM) 50 mg Take 1 Tab by 20 Tab 0 04/27/2013 Active tablet mouth every 6 (six) hours as needed for Pain. documented as of this encounter (statuses as of 10/14/2019) Active Problems No known active problemsdocumented as of this encounter (statuses as of 10/14/2019) Immunizations Name Administration Dates Next Due Td 10/14/2019 documented as of this encounter Social History Tobacco Use Types Packs/Day Years Used Date Current Every Day Smoker Alcohol Use Drinks/Week oz/Week Comments Yes Sex Assigned at Date Recorded Not on file COVID-19 Exposure Response Date Recorded In the last month, have you been in contact with Yes 10/14/2019 8:06 AM CDT someone who was confirmed or suspected to have Coronavirus / COVID-19? documented as of this encounter Last Filed Vital Signs Vital Sign Reading Time Taken Comments Blood Pressure 107/68 10/14/2019 10:00 AM CDT Pulse 48 10/14/2019 10:00 AM CDT Temperature 36.9 C (98.5 F) 10/14/2019 8:08 AM CDT Respiratory Rate 18 10/14/2019 10:00 AM CDT Oxygen Saturation 99% 10/14/2019 10:00 AM CDT Inhaled Oxygen Concentration - - Weight 72.6 kg (160 lb) 10/14/2019 8:08 AM CDT Height 172.7 cm (5' 8") 10/14/2019 8:08 AM CDT Body Mass Index 24.33 10/14/2019 8:08 AM CDT documented in this encounter ED Notes Page Toledo RN - 10/14/2019 8:06 AM CDTPatient states: "Brett I put some hard plastic in my penis and now its bleeding really bad and it hurts" Dr. Foster at bedside for exam. Officer at bedside. Pt reports he does this to himself because he has multiple personalities. ilson Foster MD - 10/14/2019 8:03 AM CDT EMERGENCY DEPARTMENT ENCOUNTER [facility] Patient Name: Tyree Nicole Date of : 1980 39 year old Exam Room:TX4/TX4 Primary Care Physician: No primary care provider on file. Pre- Hospital Patient Escorted by: Law enforcement [8] Mode of Arrival: Law enforcement [6] EMS Treatment Prior to ED Arrival: Chief Complaint Chief Complaint Patient presents with Other penis injury, self inflicted HPI History provided by: Patient Foreign Body Intake: penis. Suspected object: plastic. Pain quality: Aching Pain severity: Moderate Duration: 3 days Timing: Constant Progression: Worsening Chronicity: Recurrent Associated symptoms: no abdominal pain, no cough, no nausea and no vomiting Past Medical History / Immunizations Past Medical History: Diagnosis Date Hepatitis B Hepatitis C Past Surgical History Past Surgical History: Procedure Laterality Date APPENDECTOMY Allergies Allergies Allergen Reactions Codeine Swelling Tylenol [Acetaminophen] Swelling Social History Tobacco Use Current Every Day Smoker. Alcohol Use Yes. Drug Use Yes; Amphetamines. Comments: IVDU, and also smokes meth Review of Systems Review of Systems Constitutional: Negative. Negative for chills, fatigue, fever and unexpected weight change. HENT: Negative. Eyes: Negative. Negative for discharge and itching. Respiratory: Negative. Negative for cough, chest tightness, shortness of breath and wheezing. Cardiovascular: Negative. Negative for chest pain and palpitations. Gastrointestinal: Negative. Negative for abdominal distention, abdominal pain, nausea and vomiting. Genitourinary: Positive for penile pain. Negative for dysuria, urgency, frequency and flank pain. Musculoskeletal: Negative. Skin: Negative. Negative for color change, pallor and wound. Neurological: Negative. Negative for dizziness, syncope, light-headedness and headaches. Psychiatric/Behavioral: Negative. Negative for agitation and behavioral problems. All other systems reviewed and are negative. Endocrine: Endocrine negative Physical Exam BP 103/72 | Pulse 53 | Temp 36.9 C (98.5 F) (Oral) | Resp 16 | Ht 1.727 m (5' 8") | Wt 72.6kg (160 lb) | SpO2 99% | BMI 24.33 kg/m Physical Exam Vitals signs reviewed. Constitutional: Appearance: He is well-developed. HENT: Head: Normocephalic and atraumatic. Nose: Nose normal. Eyes: Conjunctiva/sclera: Conjunctivae normal. Neck: Musculoskeletal: Normal range of motion and neck supple. Trachea: No tracheal deviation. Cardiovascular: Rate and Rhythm: Normal rate and regular rhythm. Heart sounds: Normal heart sounds. No murmur. No friction rub. Pulmonary: Effort: Pulmonary effort is normal. No respiratory distress. Breath sounds: Normal breath sounds. No stridor. No wheezing or rales. Abdominal: General: Bowel sounds are normal. There is no distension. Palpations: Abdomen is soft. Tenderness: There is no abdominal tenderness. There is no guarding or rebound. Hernia: There is no hernia in the left inguinal area or right inguinal area. Genitourinary: Penis: Tenderness present. Scrotum/Testes: Normal. Comments: Blood at meatus Musculoskeletal: Normal range of motion. Skin: General: Skin is warm and dry. Neurological: Mental Status: He is alert and oriented to person, place, and time. Cranial Nerves: No cranial nerve deficit. Sensory: No sensory deficit. Psychiatric: Behavior: Behavior normal. Labs No results found for this or any previous visit (from the past 24 hour(s)). Imaging No results found for this visit on 10/14/19. Orders and Treatments Orders Placed This Encounter Procedures XR PELVIS 3+ VW CBC with Differential Basic Metabolic Panel (NA, K, CL, CO2, GLUCOSE, BUN, CREATININE, CA) Hepatic Function Panel (ALB, T.PRO, BILI T, BU/BC, ALT, AST, ALK PHOS) aPTT Prothrombin Time (PT) / INR No orders of the defined types were placed in this encounter. Procedures See ED Procedure Note Notes & MDM Patient was evaluated for an emergency medical condition related to Other (penis injury, self inflicted ) . Differential diagnoses considered by presenting complaints but not limited to: Penile injury FB Assessment: Pt accepted to [place] for further management. History, physical exam findings, results of visit, differential diagnosis, medication regimens and plan of future care have been considered. Additional MDM may be found in the ED course. Differential diagnosis considered and final disposition made based on information gathered during evaluation and may not be completely ruled out or specifically listed. Vital signs were rechecked before final disposition. Diagnosis ICD-10-CM ICD-9-CM 1. Foreign body in penis, initial encounter T19.4XXA 939.3 E915 Disposition & Follow Up ED Disposition None Patient's Medications START taking these medications No medications on file CONTINUE taking these medications which have NOT CHANGED DOXYCYCLINE (VIBRAMYCIN) 100 MG CAPSULE Take 1 Cap by mouth 2 (two) times daily. TRAMADOL (ULTRAM) 50 MG TABLET Take 1 Tab by mouth every 6 (six) hours as needed for Pain. START taking Modified Medications as Prescribed No medications on file STOP taking these medications No medications on file Gilson Foster Jr., MD Clinical Big Machine Consultant [facility] Emergency Department documented in this encounter Miscellaneous Notes ED Nurse Note - Marlin Dubose, RN - 10/14/2019 10:42 AM CDTReport called at this time to [place] ED Triage desk. D Nurse Note - Nitin Edmondson - 10/14/2019 10:04 AM [id number] - Contacted [facility] to arrange transport, ETA 20 minutes. documented in this encounter Plan of Treatment Health Maintenance Due Date Last Done Comments VARICELLA VACCINES (1 of 2 - 06/12/1983 2-dose childhood series) Depression Screening 1994 DTaP,Tdap,and Td Vaccines (1 - 2001 Tdap) INFLUENZA VACCINE (#1) 2019 PNEUMOCOCCAL 0-64 YEARS COMBINED Aged Out No longer eligible based on SERIES patient's age to complete this topic documented as of this encounter Procedures Procedure Name Priority Date/Time Associated Comments Diagnosis ACTIVATED PARTIAL STAT 10/14/2019 9:02 Foreign body in Res ults for this THRMPLAS FAB AM CDT penis, initial procedure are in encounter the results section. PROTHROMBIN TIME / STAT 10/14/2019 9:02 Foreign body in Re sults for this INR AM CDT penis, initial procedure are in encounter the results section. CBC WITH DIFF STAT 10/14/2019 9:02 Foreign body in Results for this AM CDT penis, initial procedure are in encounter the results section. BASIC METABOLIC PANEL STAT 10/14/2019 9:02 Foreign body in Results for this (NA, K, CL, CO2, AM CDT penis, initial procedure are in GLUCOSE, BUN, encounter the results CREATININE, CA) section. HEPATIC FUNCTION STAT 10/14/2019 9:02 Foreign body in Resu lts for this PANEL ([id number]) AM CDT penis, initial procedure ar e in (ALB,T.PRO,BILI encounter the results T,BU/BC,ALT,AST,ALK section. PHOS) COVID-19 (ID NOW STAT 10/14/2019 8:28 Foreign body in Resu lts for this RAPID TESTING) AM CDT penis, initial procedure a re in encounter the results section. XR PELVIS <3 VW STAT 10/14/2019 8:21 Foreign body in Resul ts for this AM CDT penis, initial procedure are in encounter the results section. documented in this encounter Results Prothrombin Time (PT) / INR (10/14/2019 9:02 AM CDT) PROTIME PATIENT 14.0 12.0 - 14.7 [facility] LABORATORY INR 1.1Comment: Normal [facility] INR <1.1; [facility] Therapeutic range LABORATORY 2.0 to 3.0 or 2.5 to 3.5, depending upon the indications. Specimen Blood - ARM, RIGHT Performing Organization Address [facility] Phone Number [facility] CLIA: [id number] [place], [place] [id number] LABORATORY [address] aPTT (10/14/2019 9:02 AM CDT) Pathologist Sig nature APTT Patient 30 23 - 38 Seconds [facility] Specimen Blood - ARM, RIGHT Narrative Performed At The [facility] patient population mean normal value [facility] for aPTT is 30 seconds. Performing Organization Address [facility] Blair Phone Number [facility] CLIA: [id number] [place] [address] Hepatic Function Panel (ALB, T.PRO, BILI T, BU/BC, ALT, AST, ALK PHOS) (10/14/2019 9:02 AM CDT) Pathologist Sig nature TOTAL BILI 0.7 0.1 - 1.1 mg/dL [facility] BILI UNCON 0.8 0.1 - 1.1 mg/dL [facility] BILI CONJ 0.0 0.0 - 0.3 mg/dL [facility] T PROTEIN 7.4 6.3 - 8.2 g/dL [facility] ALBUMIN 4.2 3.5 - 5.0 g/dL [facility] ALK PHOS 100 34 - 122 U/L [facility] ALTv 487 (H) 5 - 50 U/L [facility] AST(SGOT) 374 (H) 13 - 40 U/L [facility] Specimen Blood - ARM, RIGHT Performing Organization Address City/State/Zipcode Phone Number [facility] CLIA: [id number] [place] [address] Basic Metabolic Panel (NA, K, CL, CO2, GLUCOSE, BUN, CREATININE, CA) (10/14/2019 9:02 AM CDT) [facility] NA 136 135 - 145 mmol/L [facility] K 4.2 3.5 - 5.0 mmol/L [facility] CL 102 98 - 108 mmol/L [facility] CO2 TOTAL 25 23 - 31 mmol/L [facility] AGAP 9 2 - 16 [facility] BUN 20 7 - 23 mg/dL [facility] GLUCOSE 82 70 - 110 mg/dL [facility] CREATININE 0.95 0.60 - 1.25 [facility] mg/dL [facility] CALCIUM 9.5 8.6 - 10.6 mg/dL [facility] eGFR Calculation 89.2 mL/min/1.73m2 [facility] (Non-) [facility] LABORATOR Y eGFR Calculation 108.1 mL/min/1.73m2 [facility] () [facility] Specimen Blood - ARM, RIGHT Narrative Performed At Association of Glomerular Filtration Rate (GFR) [facility] LABOR[facility] and Staging of Kidney Disease* + + +- + | GFR (mL/min/1.73 m2) | With Kidney Damage | Without Kidney Damage + + +- + | >90 | Stage one | Normal + + +- + | 60-89 | Stage two | Decreased GFR + + +- + | 30-59 | Stage three | Stage three + + +- + | 15-29 | Stage four | Stage four + + +- + | <15 (or dialysis) | Stage five | Stage five + + +- + *Each stage assumes the associated GFR level has been in effect for at least three months. Stages 1 to 5, with or without kidney disease, indicate chronic kidney disease. Notes: Determination of stages one and two (with eGFR >59mL/min/1.73 m2) requires estimation of kidney damage for at least three months as defined by structural or functional abnormalities of the kidney, manifested by either: Pathological abnormalities or Markers of kidney damage (including abnormalities in the composition of the blood or urine or abnormalities in imaging tests). Performing Organization Address City/State/Zipcode Phone Number [facility] CLIA: [id number] [place] [address] CBC with Differential (10/14/2019 9:02 AM CDT) WBC 5.09 4.20 - 10.70 [facility] 10*3/L [facility] RBC 4.52 4.26 - 5.52 [facility] 10*6/L [facility] HGB 14.0 12.2 - 16.4 [facility] g/dL [facility] HCT 39.9 38.4 - 49.3 % [facility] MCV 88.3 81.7 - 95.6 [facility] LABORATORY MCH 31.0 26.1 - 32.7 [facility] LABORATORY MCHC 35.1 (H) 31.2 - 35.0 [facility] g/dL [facility] RDW-SD 41.2 38.5 - 51.6 [facility] LABORATORY RDW-CV 12.8 12.1 - 15.4 % [facility] PLT 95 (L) 150 - 328 [facility] 10*3/L [facility] MPV 10.5 9.8 - 13.0 fL [facility] LAB[facility] IPF % 3.1Comment: Platelet 1.2 - 10.7 % [facility] count measured by HOSPITAL fluorescence method. LABORATORY NRBC/100 WBC 0.0 0.0 - 10.0 [facility] /100 WBCs [facility] LAB[facility] NRBC x10^3 <0.01 10*3/L [facility] GRAN MAT (NEUT) % 57.1 % [facility] IMM GRAN % 0.20 % [facility] LYMPH % 28.7 % [facility] MONO % 12.0 % [facility] EOS % 1.6 % [facility] BASO % 0.4 % [facility] GRAN MAT 2.91 1.99 - 6.95 [facility] x10^3(ANC) 10*3/uL HOSPITAL LABORATORY IMM GRAN x10^3 <0.03 0.00 - 0.06 [facility] 10*3/uL HOSPITAL LABORATORY LYMPH x10^3 1.46 1.09 - 3.23 [facility] 10*3/uL HOSPITAL LABORATORY MONO x10^3 0.61 0.36 - 1.02 [facility] 10*3/uL HOSPITAL LABORATORY EOS x10^3 0.08 0.06 - 0.53 [facility] 10*3/uL HOSPITAL LABORATORY BASO x10^3 <0.03 0.01 - 0.09 [facility] 10*3/uL [facility] LAB[facility] Specimen Blood - ARM, RIGHT Performing Organization Address [facility]/Zipcode Phone Number [facility] CLIA: [id number] [place], [place] [id number] [address] COVID-19 (ID NOW RAPID TESTING) (10/14/2019 8:28 AM CDT) SARS-CoV-2 Rapid ID Not Detected Not Detected NEW [facility] Specimen Swab - NASOPHARYNGEAL SWAB Narrative Performed At DE NOW COVID-19 Assay is an isothermal nucleic [facility] acid amplification test intended for the qualitative detection of nucleic acid from SARS-CoV-2 viral RNA in nasopharyngeal (HEAD ATHLETIC TRAINER/STRENGTH COACH) specimens. It is used under Emergency Use Authorization (EUA) by FDA. The limit of detection (LOD) of the assay is 125 Genome Equivalents/mL. A positive result is indicative of the presence of SARS-CoV-2 RNA. Clinical correlation with patient history and other diagnostic information is necessary to determine patient infection status. A negative (Not Detected) result does not preclude SARS-CoV-2 infection. In patients with clinical symptoms and other tests that are consistent with SARS-CoV-2 infection, negative results should be treated as presumptive negative and a new specimen should be tested with alternative PCR molecular test. Invalid: Please collect a new specimen for repeat patient testing if clinically indicated. Performing Organization Address [facility] Phone Number [facility] CLIA: [id number] [place] [address] XR PELVIS <3 VW (10/14/2019 8:21 AM CDT) Specimen Impressions Performed At PACS/VR/DOSE Densities projecting over the base of the penis in wilma tariq with the history of foreign bodies. Narrative Performed At EXAM: PACS/VR/DOSE XR PELVIS <3 VW HISTORY: penile foreign body 1 view ok COMPARISON: None. FINDINGS: A 4 cm density with adjacent punctate de nsities project over the base of the penis. Surgical clips are seen in th e right lower quadrant of the abdomen. Pelvic phleboliths are noted. N o acute bony abnormality is identified. Procedure Note [facility], Radiant Results Inft User - 2019 8:32 AM CDT EXAM: XR PELVIS <3 VW HISTORY: penile foreign body 1 view ok COMPARISON: None. FINDINGS: A 4 cm density with adjacent punctate de nsities project over the base of the penis. Surgical clips are seen in th e right lower quadrant of the abdomen. Pelvic phleboliths are noted. N o acute bony abnormality is identified. IMPRESSION Densities projecting over the base of th e penis in keeping with the history of foreign bodies. Performing Organization Address City/State/[facility] Phone Number PACS/VR/DOSE documented in this encounter Visit Diagnoses Diagnosis Foreign body in penis, initial encounter - Primary documented in this encounter Administered Medications Medication Order MAR Action Action Date Dose Rate Site ketorolac (TORADOL) injection 30 Given 10/14/2019 8:42 AM CDT 3 0 mg mg 30 mg, Slow IV Push, ONCE, 1 dose, 10/14/19 at 0945, DEMETRIUS, modular home crew member approving Restricted medication: GILSON FOSTER tetanus-diphtheria toxoids Given 10/14/2019 8:43 AM 0.5 mL Right Deltoid-IM (TENIVAC) 5-2 Lf unit/0.5 mL CDT injection 0.5 mL 0.5 mL, Intramuscular, ONCE, 1 dose, 10/14/19 at 0945, Routine documented in this encounter Additional Health Concerns Infection Onset Date Last Indicated Resolved Time COVID-19 Rule Out 10/14/2019 10/14/2019 10/14/2019 9: 38 AM CDT documented as of this encounter Insurance Payer Benefit Plan / Subscriber ID Effective Dates Phone Addre ss Type Group [facility] [id number] 2019-[place] [employer] [place] [id number] Guarantor Name Account Type Relation to Date of Phone Billing Patient Address Tyree Nicole Personal/Family Self 1980 [id number] (Home) [place] [address] documented as of this encounter
--- OUTSIDE RECORDS SUMMARY | 2019-11-27 22:17 | XMS REPORT | Continuity of Care Document ---
:1980 Author Organization [facility] t Address [address] [place] [address] Care Team Providers Name Role Phone Rosa Mckeon DO Attending Clinician Carmina Gracia MD Attending Clinician Vel AYALA Attending Clinician Singer BO Attending Clinician Prieto KIM Attending Clinician Carimna Gracia MD Admitting Clinician Problems This patient has no known problems. Allergies, Adverse Reactions, Alerts This patient has no known allergies or adverse reactions. Medications This patient has no known medications. Procedures This patient has no known procedures. Encounters Start End Encounter Admission Attending Care Care Encounter Source Date/Time Date/Time Type Type Clinicians Facility Department ID 2019-10-22 2019-10-22 Emergency LAYNE Mckeon [id number] 13:28:00 17:18:00 Brooklynn Atkinson [id number] [place] 4.2.7.2.686 [place] [id number] 2019-10-19 2019-10-20 [facility] Brooklynn Mckeon 1.2.84 [id number] [id number] 07:31:00 17:10:00 Encounter Chikis Gracia 350.1.13 [address]2.686 [id number] 2019-10-18 2019-10-18 Emergency [facility] [id number] 13:39:00 19:59:00 Brooklynn Atkinson [id number] [place] 4.2.7.2.686 [place] [id number] 2019-10-14 2019-10-14 [facility] [id number] 08:08:00 10:44:00 Gilson Atkinson 350.1.13.10 [place] 4.2.7.2.686 [place] [id number] 2019-09-23 2019-09-23 [facility] [id number] 16:54:00 20:50:00 Arash Atkinson 350.1.13.10 [place] 4.2.7.2.686 [place] [id number] 2019-09-20 2019-09-21 [facility] [id number] 23:56:46 02:02:00 Brian Atkinson 350.1.13.10 [place] 4.2.7.2.686 [place] [id number] Results This patient has no known results.
--- OUTSIDE RECORDS SUMMARY | 2019-11-27 22:17 | XMS REPORT | Summary of Care ---
:1980 Author Organization [facility] Address [address] [place] [address] Care Team Providers Name Role Phone [facility] Primary Care Provider Reason for Referral Radiology Services (STAT) Status Reason Specialty Diagnoses / Referred By Referred To Procedures Contact Contact New Request Diagnostic Diagnoses Penis pain Brooklynn Mckeon Radiology Procedures XR CERVICAL SPINE 3 VW XR CERVICAL SPINE 4 VW J, DO [address] [place] [address] MRI/CAT Scan (STAT) Status Reason Specialty Diagnoses / Referred By Referred To Procedures Contact Contact New Request Diagnostic Diagnoses Penis pain Brooklynn Mcekon Radiology Procedures CT PELVIS W CONTRAST J, DO [address] [place] [address] Radiology Services (STAT) Status Reason Specialty Diagnoses / Referred By Referred To Procedures Contact Contact New Request Diagnostic Diagnoses Penis pain Brooklynn Mckeon Radiology Procedures XR PELVIS <3 VW J, DO [address] [place] [address] Reason for Visit Reason Comments Penis/Scrotum Problem Auth/Cert Status Reason Specialty Diagnoses / Referred By Referred To Procedures Contact Contact Emergency Medicine [facility] Em ergency Dept [address] [place] [address] Fax: Encounter Details Date Type Department Care Team Description 10/18/2019 Emergency ADC-Emergency Brooklynn Mckeon, Penis p ain (Primary Department DO Dx) [address] [address] [place] [address] [phone] Allergies Active Allergy Reactions Severity Noted Date Comments Codeine Swelling 04/26/2013 Acetaminophen Swelling 10/14/2019 documented as of this encounter (statuses as of 10/18/2019) Medications Medication Sig Dispensed Refills Start Date End Date Status doxycycline Take 1 Cap by 20 Cap 0 04/27/2013 Act nas (VIBRAMYCIN) 100 mg mouth 2 (two) capsule times daily. traMADOL (ULTRAM) 50 mg Take 1 Tab by 20 Tab 0 04/27/2013 Active tablet mouth every 6 (six) hours as needed for Pain. documented as of this encounter (statuses as of 10/18/2019) Active Problems No known active problemsdocumented as of this encounter (statuses as of 10/18/2019) Immunizations Name Administration Dates Next Due Td 10/14/2019 documented as of this encounter Social History Tobacco Use Types Packs/Day Years Used Date Current Every Day Smoker Alcohol Use Drinks/Week oz/Week Comments Yes Sex Assigned at Date Recorded Not on file COVID-19 Exposure Response Date Recorded In the last month, have you been in contact with No / Unsure 10/18/2019 1:39 PM CDT someone who was confirmed or suspected to have Coronavirus / COVID-19? documented as of this encounter Last Filed Vital Signs Vital Sign Reading Time Taken Comments Blood Pressure 103/61 10/18/2019 7:00 PM CDT Pulse 54 10/18/2019 7:00 PM CDT Temperature 37.1 C (98.8 F) 10/18/2019 1:46 PM CDT Respiratory Rate 19 10/18/2019 7:00 PM CDT Oxygen Saturation 97% 10/18/2019 7:00 PM CDT Inhaled Oxygen Concentration - - Weight 72.6 kg (160 lb) 10/18/2019 1:46 PM CDT Height - - Body Mass Index 24.33 10/14/2019 8:08 AM CDT documented in this encounter ED Notes Kassidy Bull RN - 10/18/2019 5:45 PM CDTPatient remains under suicide precautions. Continuous observation in place, patient currently resting in bed covid swab preformed, patient updated that we are awaiting update from an admitting facility. No acute distress noted. Kassidy Gregg RN - 10/18/2019 3:45 PM CDTPatient remains under suicide precautions. Continuous observation in place, patient currently resting in bed sitter and officer at bedside, no acute distress noted. May Marques RN - 10/18/2019 1:40 PM CDTApprox two hours ago patient started putting concrete pieces inside his penis. Patient arrived with cervical collar on. States he had a fall at unknown time from "slipping in his blood". States he was able to urinate without issue then "a lot of blood started coming out". He is hepatitis c positive. Dried blood noted to back, bilateral lower legs. Patient stated to MD he was trying to block his urethra so that his urine would back up into his kidneys so that he would get sick and . EMS placed PIV and administered 50mcg Fentanyl. Brooklynn Lee DO - 10/18/2019 1:33 PM CDT [facility] Emergency Department Note Patient Name: Tyree Nicole Date of : 1980 39 year old male Treatment [facility]: [facility] Primary Care Physician: [facility] Patient Escorted by: Law enforcement [[id number]] Mode of Arrival: EMS - [facility] [[id number]] EMS Treatment Prior to ED Arrival: Travel and Exposure Screening: Symptoms Does patient have any of these symptoms?: (not recorded) Exposure Screening Has patient had contact with someone with a communicable disease in the last month?: (not recorded) Diseases exposed to:: (not recorded) Is Patient ?: (not recorded) Exposure Date: (not recorded) Chief Complaint: Chief Complaint Patient presents with Penis/Scrotum Problem History of Present Illness: Patient presents for eval from senior living for putting concrete in his urethra in a suicide attempt. During the course of putting concrete in his urethra he caused bleeding which made him dizzy and pass out. He was found in his cell covered in blood. Is c/o penile pain upon arrival. Is not on blood thinners. Had similar episode on Monday - today is Monday. No medications for pain given en route. No FREEMAN. No abd pain. States he has been unable to urinate since placing the concrete in his urethra. Brought by EMS and noted to have about 500cc of blood at the scene. Here for eval. Past Medical History/Immunizations: Past Medical History: Diagnosis Date Foreign body in penis Hepatitis B Hepatitis C Tetanus received in last 5 years: Yes Childhood immunizations: Up-to-date Allergies: Allergies Allergen Reactions Codeine Swelling Tylenol [Acetaminophen] Swelling Past Social History: Tobacco Use Current Every Day Smoker. Alcohol Use Yes. Drug Use Yes; Amphetamines. Comments: IVDU, and also smokes meth Past Surgical History: Past Surgical History: Procedure Laterality Date APPENDECTOMY Review of Systems: Review of Systems Constitutional: Negative for chills and fever. Respiratory: Negative for shortness of breath. Cardiovascular: Negative for chest pain. Gastrointestinal: Negative for abdominal pain, nausea and vomiting. Genitourinary: Positive for difficulty urinating and penile pain. Negative for testicular pain. Musculoskeletal: Negative for arthralgias, neck pain and neck stiffness. Skin: Negative for wound. Neurological: Negative for dizziness. Psychiatric/Behavioral: Negative for agitation. Endocrine: Negative for goiter. Physical Exam: ED Triage Vitals [10/18/19 1346] Weight 72.6 kg (160 lb) Actual or estimated Estimated by patient/family report Height BP 115/63 Pulse 62 Resp 15 Temp 37.1 C (98.8 F) Temp source Oral SpO2 99 % Measured on Room air Physical Exam Vitals signs and nursing note reviewed. 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 Constitutional: Appearance: Normal appearance. He is normal weight. HENT: Head: Normocephalic and atraumatic. Cardiovascular: Rate and Rhythm: Normal rate. Pulmonary: Effort: Pulmonary effort is normal. No respiratory distress. Abdominal: General: Abdomen is flat. There is no distension. Palpations: There is no mass. Tenderness: There is no abdominal tenderness. There is no guarding. Genitourinary: Penis: Circumcised. Tenderness present. No swelling or lesions. Scrotum/Testes: Normal. Epididymis: Right: Normal. Left: Normal. Comments: Blood surrounding his penis and urethral meatus. Has tenderness to the entire shaft of the penis. Musculoskeletal: Normal range of motion. Skin: General: Skin is warm and dry. Comments: Dried blood splatter noted to entire body from toes to forehead. No open wounds or lacerations noted to entire body including axilla and buttock crease. Neurological: General: No focal deficit present. Mental Status: He is alert. Radiology: Hospital Encounter on 10/18/19 XR PELVIS <3 VW Narrative Exam:XR PELVIS <3 VW HISTORY: h/o placing concrete in urethra COMPARISON: Radiograph 10/14/2019 FINDINGS: Radiographs of the pelvis demonstrate curvilinear opacities projecting over the expected location of the penile urethra. The previously noted configuration of foreign densities projecting over penis not visualized on this exam. Scattered pelvic phleboliths are noted. No acute bony abnormality. Impression Foreign bodies projecting over the expected location of the penile urethra consistent with history of foreign body. Preliminary Report Dictated by Resident: Amilcar Gaines MD., have reviewed this study and agree with the above report. CT PELVIS W CONTRAST Narrative EXAM: CT ABDOMEN AND PELVIS WITH CONTRAST HISTORY: 39 years -old Male with concrete shoved in urethra COMPARISON: None available. TECHNIQUE AND FINDINGS: Contiguous axial imaging from the level of the superior iliac crest through the pelvic brim was performed after the uncomplicated administration of intravenous contrast. Coronal and sagittal reconstructions were obtained. Auto mA and/or iterative reconstruction were used to reduce radiation dose. FINDINGS: PELVIS/BLADDER: Several hyperdense structures / One structure broken into two are identified within the penile urethra . Penile and bulbar urethra extending to the junction of anterior and posterior urethra. And likely represent foreign bodies based on patient history. The enhancement surrounding the ureter and the corpora spongiosa appears normal except in the cranial most part likely in the bulbar urethra there is some heterogeneous extravasation of contrast suggesting injury to the bulbar aspect of carpus spongiosum. . PERITONEUM AND RETROPERITONEUM: No free air or fluid. LYMPH NODES: No lymphadenopathy. 12 GI TRACT: No dilation or wall thickening. VESSELS: Unremarkable. BONES AND SOFT TISSUES: No suspicious lytic or sclerotic bony lesions. There is a hyperdense focus in the lateral muscle body of the right vastus medialis, likely representing bruising versus small hematoma. Impression Several foreign bodies are identified within the penile urethra extending to the bulbar urethra with some accentuation of the contrast in the corpus spongiosum around the region of junction of anterior and posterior urethra concerning for injury. Preliminary Report Dictated by Resident: Shagufta Dong I, Ho Montoya MD., have reviewed this study and agree with the above report. Lab Results (24h): Recent Results (from the past 24 hour(s)) CBC with Differential Collection Time: 10/18/19 2:01 PM Result Value Ref Range WBC 3.05 (L) 4.20 - 10.70 10*3/L RBC 3.90 (L) 4.26 - 5.52 10*6/L HGB 12.0 (L) 12.2 - 16.4 g/dL HCT 35.0 (L) 38.4 - 49.3 % MCV 89.7 81.7 - 95.6 fL MCH 30.8 26.1 - 32.7 pg MCHC 34.3 31.2 - 35.0 g/dL RDW-SD 42.5 38.5 - 51.6 fL RDW-CV 12.9 12.1 - 15.4 % PLT 86 (L) 150 - 328 10*3/L MPV 10.5 9.8 - 13.0 fL IPF % 3.1 1.2 - 10.7 % NRBC/100 WBC 0.0 0.0 - 10.0 /100 WBCs NRBC x10^3 <0.01 10*3/L GRAN MAT (NEUT) % 49.1 % IMM GRAN % 0.00 % LYMPH % 34.4 % MONO % 12.8 % EOS % 3.0 % BASO % 0.7 % GRAN MAT x10^3(ANC) 1.50 (L) 1.99 - 6.95 10*3/uL IMM GRAN x10^3 <0.03 0.00 - 0.06 10*3/uL LYMPH x10^3 1.05 (L) 1.09 - 3.23 10*3/uL MONO x10^3 0.39 0.36 - 1.02 10*3/uL EOS x10^3 0.09 0.06 - 0.53 10*3/uL BASO x10^3 <0.03 0.01 - 0.09 10*3/uL Basic Metabolic Panel (NA, K, CL, CO2, GLUCOSE, BUN, CREATININE, CA) Collection Time: 10/18/19 2:01 PM Result Value Ref Range NA 136 135 - 145 mmol/L K 3.8 3.5 - 5.0 mmol/L CL 104 98 - 108 mmol/L CO2 TOTAL 26 23 - 31 mmol/L AGAP 6 2 - 16 BUN 16 7 - 23 mg/dL GLUCOSE 101 70 - 110 mg/dL CREATININE 1.08 0.60 - 1.25 mg/dL CALCIUM 8.7 8.6 - 10.6 mg/dL eGFR Calculation (Non-) 76.9 mL/min/1.73m2 eGFR Calculation () 93.2 mL/min/1.73m2 Hepatic Function Panel (ALB, T.PRO, BILI T, BU/BC, ALT, AST, ALK PHOS) Collection Time: 10/18/19 2:01 PM Result Value Ref Range TOTAL BILI 0.2 0.1 - 1.1 mg/dL BILI UNCON 0.3 0.1 - 1.1 mg/dL BILI CONJ 0.0 0.0 - 0.3 mg/dL T PROTEIN 6.5 6.3 - 8.2 g/dL ALBUMIN 3.7 3.5 - 5.0 g/dL ALK PHOS 107 34 - 122 U/L ALTv 451 (H) 5 - 50 U/L AST(SGOT) 342 (H) 13 - 40 U/L Prothrombin Time (PT) / INR Collection Time: 10/18/19 2:01 PM Result Value Ref Range PROTIME PATIENT 14.9 (H) 12.0 - 14.7 Seconds INR 1.2 Type and Screen - Type and Screen expires at midnight on the 3rd day after it was drawn. A current Type and Screen is required when RBCs are requested. For all other blood products, a Type and Screen performed during the current hospitalization i... Collection Time: 10/18/19 2:01 PM Result Value Ref Range ABO & RH O Positive IAT Negative ABORH CONFIRMATION Collection Time: 10/18/19 2:23 PM Result Value Ref Range ABO & RH O Positive Orders and Treatments: Orders Placed This Encounter Procedures XR PELVIS <[address] PELVIS W CONTRAST CBC with Differential Basic Metabolic Panel (NA, K, CL, CO2, GLUCOSE, BUN, CREATININE, CA) Hepatic Function Panel (ALB, T.PRO, BILI T, BU/BC, ALT, AST, ALK PHOS) Prothrombin Time (PT) / INR Type and Screen - Type and Screen expires at midnight on the 3rd day after it was drawn. A current Type and Screen is required when RBCs are requested. For all other blood products, a Type and Screen performed during the current hospitalization i... No orders of the defined types were placed in this encounter. ED COURSE patient presents for eval from senior living for placing concrete into his urethra in a suicide attempt. Did the same thing on Monday - today is Monday. C/o penile pain and the inability to urinate upon arrival. Is not on blood thinners. Has h/o HCV. VSS here in the EC. Dried blood spatter to entire body. No open wounds or lacerations. Has tenderness to penis with blood at the meatus. Xray shows foreign bodies. Labs ok. CT pelvis shows foreign bodies in the urethra with suspected urethral injury. Urology not available here in [place]. Spoke with transfer center and patient accepted to [facility] for urology eval. Prior to transfer out of the ED the patient was able to void on his own. A ridley catheter was not placed here. MDM: Coding Diagnosis/Impression: ICD-10-CM ICD-9-CM 1. Penis pain N48.89 607.9 Disposition/Condition: ED Disposition None Discharge Medications: Patient's Medications START taking these medications No [...] taking these medications No medications on file Follow-up: Electronically signed by: Brooklynn Mckeon DO 10/18/2019 2:22 PM documented in this encounter Miscellaneous Notes ED Nurse Note - Ana Perez RN - 10/18/2019 7:57 PM CDTReport given to EMS; patient leaving at this time. D Nurse Note - Lesa Hernandez RN - 10/18/2019 7:42 PM CDTCity [facility] here for transport; report given at this time. D Nurse Note - Lesa Hernandez RN - 10/18/2019 7:35 PM CDTReceived call from [facility]; states that the receiving hospital has not received the MOT and facesheet; sent again to number provided by [facility] [phone] signed by Lesa Hernandez RN at 10/18/2019 7:44 PM CDTED Nurse Note - Kassidy Bull RN - 10/18/2019 6:38 PM CDTPatient remains under suicide precautions. Continuous observation in place, patient currently sitting calmly in bed officer and sitter at bedside. [facility] No acute distress noted. D Nurse Note - Shagufta Perez PCT - 10/18/2019 6:25 PM CDTCity Ambulance contacted for transfer at 1822 ETA 30-35 min.. uicide Risk Assessment Note - Brooklynn Mckeon DO - 10/18/2019 1:55 PM CDT Suicide Risk - Assessment and Plan ESS-6: Positive Screen for Suicidality: Yes Recent or current suicide plan: Yes Recent or current intent to act on ideation: Yes Lifetime psychiatric hospitalization: Yes Pattern of excessive substance use: Yes Is the patient displaying current irritability, agitation, or agression: No Score Risk Questions: Initial score: 5 Critical Items: Suicide plan present: Yes Intent present: Yes Current suicide attempt: Yes Total Score: Suggested risk level: High Stratification and Care Recommendations: Negligible Mild Risk Moderate Risk High Risk A. Score Not applicable (negative on primary screener) 0-2 3-4 5-6 B. Critical items - No current attempt - No suicide plan or intent - No current attempt - No suicide plan or intent - No current attempt - Suicide plan or intent (not both) - Current attempt - Suicide plan and intent Risk Level of Patient: High Risk Plan: High ? Constant observation (1:1) and make room safe or ligature resistant room recommended. ? Behavioral health evaluation recommended. ? Suicide Prevention and Mental Health discharge resources. ? Safety plan recommended at discharge. documented in this encounter Plan of Treatment Health Maintenance Due Date Last Done Comments VARICELLA VACCINES (1 of 2 - 2-dose childhood series) 06/12/1983 PNEUMOCOCCAL 0-64 YEARS COMBINED SERIES (1 of 1 - 1988 PPSV23) Depression Screening 1994 DTaP,Tdap,and Td Vaccines (1 - Tdap) 2001 10/14/2019 INFLUENZA VACCINE (#1) 2019 documented as of this encounter Procedures Procedure Name Priority Date/Time Associated Comments Diagnosis XR CERVICAL SPINE 3 STAT 10/18/2019 6:26 Penis pain Resu lts for this VW PM CDT procedure are i n the results section. COVID-19 (ID NOW STAT 10/18/2019 5:46 Penis pain Results for this RAPID TESTING) PM CDT procedure are in the results section. CT PELVIS W CONTRAST STAT 10/18/2019 4:04 Penis pain Res ults for this PM CDT procedure are i n the results section. ABORH CONFIRMATION Routine 10/18/2019 2:23 Resul ts for this PM CDT procedure are i n the results section. XR PELVIS <3 VW STAT 10/18/2019 2:14 Penis pain Results for this PM CDT procedure are i n the results section. HB ABO GROUPING Routine 10/18/2019 2:01 Penis pain Results for this PM CDT procedure are i n the results section. PROTHROMBIN TIME / STAT 10/18/2019 2:01 Penis pain Resul ts for this INR PM CDT procedure are i n the results section. CBC WITH DIFF STAT 10/18/2019 2:01 Penis pain Results fo r this PM CDT procedure are i n the results section. BASIC METABOLIC PANEL STAT 10/18/2019 2:01 Penis pain Re sults for this (NA, K, CL, CO2, PM CDT procedure a re in GLUCOSE, BUN, the results CREATININE, CA) section. HEPATIC FUNCTION STAT 10/18/2019 2:01 Penis pain Results for this PANEL (49858) PM CDT procedure are in (ALB,T.PRO,BILI the results T,BU/BC,ALT,AST,ALK section. PHOS) documented in this encounter Results XR CERVICAL SPINE 3 VW (10/18/2019 6:26 PM CDT) Specimen Impressions Performed At No acute osseous findings or significant degenerative changes. PACS/VR/DOSE Narrative Performed At HISTORY:neck pain PACS/VR/DOSE TECHNIQUE: Frontal and lateral views of the cervical s pine were obtained. COMPARISON:None. FINDINGS: There is normal cervical lordosis and sa gittal alignment. The vertebral body heights are preserved. The craniocervical junctio n is unremarkable. No degenerative changes are seen. Procedure Note [facility], Radiant Results Inft User - 2019 6:29 PM CDT HISTORY:neck pain TECHNIQUE: Frontal and lateral views of the cervical spine were obtained. COMPARISON:None. FINDINGS: There is normal cervical lordosis and sa gittal alignment. The vertebral body heights are preserved. The cranioce rvical junction is unremarkable. No degenerative changes are seen. IMPRESSION No acute osseous findings or significant degenerative changes. Performing Organization Address [facility] Phone Number PACS/VR/DOSE COVID-19 (ID NOW RAPID TESTING) (10/18/2019 5:46 PM CDT) SARS-CoV-2 Rapid ID Not Detected Not Detected [facility] Specimen Swab - NASOPHARYNGEAL SWAB Narrative Performed At ID NOW COVID-19 Assay is an isothermal nucleic [facility] acid amplification test intended for the qualitative detection of nucleic acid from SARS-CoV-2 viral RNA in nasopharyngeal (FACILITY MANAGER HISTOLOGY) specimens. It is used under Emergency Use [...] testing if clinically indicated. Performing Organization Address [facility] Phone Number [facility] CLIA: [id number] [place] [address] PELVIS W CONTRAST (10/18/2019 4:04 PM CDT) Specimen Impressions Performed At PACS/VR/DOSE Several foreign bodies are identified within the penil e urethra extending to the bulbar urethra with some accentuation of the co ntrast in the corpus spongiosum around the region of junction of anterior a nd posterior urethra concerning for injury. Preliminary Report Dictated by Resident: Shagufta Dong I, Ho Montoya MD., have reviewed this study and agree with the above report. Narrative Performed At EXAM: CT ABDOMEN AND PELVIS WITH CONTRAS T PACS/VR/DOSE HISTORY: 39 years -old Male with concret e shoved in urethra COMPARISON: None available. TECHNIQUE AND FINDINGS: Contiguous axial imaging from the level of the superior iliac crest through the pelvic brim was performed after the uncomplicated administration of intravenous contrast. Coronal and sagittal reconstructions were obtained. Auto mA and/or iterative reconstruction were used to reduce radiation dose. FINDINGS: PELVIS/BLADDER: Several hyperdense structures / One st ructure broken into two are identified within the penile urethra . Penil e and bulbar urethra extending to the junction of anterior an d posterior urethra. And likely represent foreign bodies based on patien t history. The enhancement surrounding the ureter a nd the corpora spongiosa appears normal except in the cranial most part likely in the b ulbar urethra there is some heterogeneous extravasation of c ontrast suggesting injury to the bulbar aspect of carpus spongiosum. . PERITONEUM AND RETROPERITONEUM: No free air or fluid. LYMPH NODES: No lymphadenopathy. 12 GI TRACT: No dilation or wall thickening . VESSELS: Unremarkable. BONES AND SOFT TISSUES: No suspicious ly tic or sclerotic bony lesions. There is a hyperdense focus in the lateral muscle body of the right vastus medialis, likely representing bruising v ersus small hematoma. Procedure Note [facility], Radiant Results Inft User - 2019 5:42 PM CDT EXAM: CT ABDOMEN AND PELVIS WITH CONTRAST HISTORY: 39 years -old Male with concret e shoved in urethra COMPARISON: None available. TECHNIQUE AND FINDINGS: Contiguous axial imaging from the level of the superior iliac crest through the pelvic brim was performed after the uncomplicated administration of intraven ous contrast. Coronal and sagittal reconstructions were obtained. Auto mA and/or iterative reconstruction were used to reduce radiation dose. FINDINGS: PELVIS/BLADDER: Several hyperdense struc tures / One structure broken into two are identified within the penile ur ethra . Penile and bulbar urethra extending to the junction of anterior an d posterior urethra. And likely represent foreign bodies based on patien t history. The enhancement surrounding the ureter a nd the corpora spongiosa appears normal except in the cranial most part l ikely in the bulbar urethra there is some heterogeneous extravasation of c ontrast suggesting injury to the bulbar aspect of carpus spongiosum. . PERITONEUM AND RETROPERITONEUM: No free air or fluid. LYMPH NODES: No lymphadenopathy. 12 GI TRACT: No dilation or wall thickening . VESSELS: Unremarkable. BONES AND SOFT TISSUES: No suspicious ly tic or sclerotic bony lesions. There is a hyperdense focus in the later al muscle body of the right vastus medialis, likely representing bruising v ersus small hematoma. IMPRESSION Several foreign bodies are identified wi thin the penile urethra extending to the bulbar urethra with some accentua tion of the contrast in the corpus spongiosum around the region of junction of anterior and posterior urethra concerning for injury. Preliminary Report Dictated by Resident: Shagufta Dong I, Ho Montoya MD., have revie wed this study and agree with the above report. Performing Organization Address City/State/Zipcode Phone Number PACS/VR/DOSE ABORH CONFIRMATION (10/18/2019 2:23 PM CDT) Pathologist Sig nature ABO & RH O Positive LAB Comment: Performed at [facility] Laboratory Services - [facility] Blood Bank [address] [place] [phone] Toll Free: [phone] CLIA No. [id number] Specimen Performing Organization Address City/State/Zipcode Phone Number BLD LAB XR PELVIS <3 VW (10/18/2019 2:14 PM CDT) Specimen Impressions Performed At PACS/VR/DOSE Foreign bodies projecting over the expected location o f the penile urethra consistent with history of foreign body. Preliminary Report Dictated by Resident: Shaila Carlton I, Amilcar Akbar MD., have reviewed this study and a gree with the above report. Narrative Performed At Exam:XR PELVIS <3 VW PACS/VR/DOSE HISTORY: h/o placing concrete in urethra COMPARISON: Radiograph 10/14/2019 FINDINGS: Radiographs of the pelvis demonstrate curvilinear opac ities projecting over the expected location of the penile uret hra. The previously noted configuration of foreign densities projecting over pen is not visualized on this exam. Scattered pelvic phleboliths are noted. No acute bony abnormality. Procedure Note [facility], Radiant Results Inft User - 2019 3:49 PM CDT Exam:XR PELVIS <3 VW HISTORY: h/o placing concrete in urethra COMPARISON: Radiograph 10/14/2019 FINDINGS: Radiographs of the pelvis demonstrate cu rvilinear opacities projecting over the expected location of the penile uret hra. The previously noted configuration of foreign densities proje cting over penis not visualized on this exam. Scattered pelvic phleboliths are noted. No acute bony abnormality. IMPRESSION Foreign bodies projecting over the expec sinan location of the penile urethra consistent with history of foreign body. Preliminary Report Dictated by Resident: Amilcar Gaines MD., have reviewed is study and agree with the above report. Performing Organization Address City/State/Zipcode Phone Number PACS/VR/DOSE Type and Screen - Type and Screen expires at midnight on the 3rd day after it was drawn. A current Type and Screen is required when RBCs are requested. For all other blood products, a Type and Screen performed during the current hospitalization i... (10/18/2019 2:01 PM CDT) Pathologist Sig nature ABO & RH O Positive LAB Comment: Performed at [facility] Laboratory Services - [facility] Blood Bank [address] [place] [phone] Toll Free: [phone] CLIA No. [id number] IAT Negative LAB Comment: Performed at [facility] Laboratory Services - [facility] Blood Bank [address], [place] [address] Toll Free: [phone] CLIA No. [id number] Specimen Blood - VENOUS Performing Organization Address City/State/Zipcode Phone Number BLD LAB Prothrombin Time (PT) / INR (10/18/2019 2:01 PM CDT) PROTIME PATIENT 14.9 (H) 12.0 - 14.7 [facility] LABORATORY INR 1.2Comment: Normal [facility] INR <1.1; Warfarin [facility] Therapeutic range LABORATORY 2.0 to 3.0 or 2.5 to 3.5, depending upon the indications. Specimen Blood - VENOUS Performing Organization Address [facility] Phone Number [facility] CLIA: [id number] [place] [address] LABORATORY [address] [facility] Hepatic Function Panel (ALB, T.PRO, BILI T, BU/BC, ALT, AST, ALK PHOS) (10/18/2019 2:01 PM CDT) [facility] TOTAL BILI 0.2 0.1 - 1.1 mg/dL [facility] LABORATORY BILI UNCON 0.3 0.1 - 1.1 mg/dL [facility] LABORATORY BILI CONJ 0.0 0.0 - 0.3 mg/dL [facility] LABORATORY T PROTEIN 6.5 6.3 - 8.2 g/dL [facility] LABORATORY ALBUMIN 3.7 3.5 - 5.0 g/dL [facility] LABORATORY ALK PHOS 107 34 - 122 U/L [facility] LABORATORY ALTv 451 (H) 5 - 50 U/L [facility] LABORATORY AST(SGOT) 342 (H) 13 - 40 U/L [facility] LABORATORY Specimen Blood - VENOUS Performing Organization Address [facility] Phone Number [facility] CLIA: [id number] [place] [address] LABORATORY [address] [facility] Basic Metabolic Panel (NA, K, CL, CO2, GLUCOSE, BUN, CREATININE, CA) (10/18/2019 2:01 PM CDT) [facility] [employer] NA 136 135 - 145 mmol/L [facility] LABORATORY K 3.8 3.5 - 5.0 mmol/L [facility] LABORATORY CL 104 98 - 108 mmol/L [facility] LABORATORY CO2 TOTAL 26 23 - 31 mmol/L [facility] LABORATORY AGAP 6 2 - 16 [facility] LABORATORY BUN 16 7 - 23 mg/dL [facility] LABORATORY GLUCOSE 101 70 - 110 mg/dL [facility] LABORATORY CREATININE 1.08 0.60 - 1.25 [facility] mg/dL [facility] LABORATORY CALCIUM 8.7 8.6 - 10.6 mg/dL [facility] LABORATORY eGFR Calculation 76.9 mL/min/1.73m2 [facility] (Non-) [facility] LABORATOR Y eGFR Calculation 93.2 mL/min/1.73m2 [facility] () [facility] LABORATORY Specimen Blood - VENOUS Narrative Performed At [facility] Glomerular Filtration Rate (GFR) [facility] LABORATORY and Staging of Kidney Disease* [...] Address City/State/Zipcode Phone Number [facility] CLIA: [id number] [place] [address] CBC with Differential (10/18/2019 2:01 PM CDT) WBC 3.05 (L) 4.20 - 10.70 [facility] 10*3/L [facility] LABORATORY RBC 3.90 (L) 4.26 - 5.52 [facility] 10*6/L [facility] LABORATORY HGB 12.0 (L) 12.2 - 16.4 [facility] g/dL [facility] LABORATORY HCT 35.0 (L) 38.4 - 49.3 % [facility] LABORATORY MCV 89.7 81.7 - 95.6 [facility] fL [facility] LABORATORY MCH 30.8 26.1 - 32.7 [facility] LABORATORY MCHC 34.3 31.2 - 35.0 [facility] g/dL HOSPITAL LABORATORY RDW-SD 42.5 38.5 - 51.6 [facility] HOSPITAL LABORATORY RDW-CV 12.9 12.1 - 15.4 % [facility] LABORATORY PLT 86 (L) 150 - 328 [facility] 10*3/L [facility] LABORATORY MPV 10.5 9.8 - 13.0 fL [facility] LABORATORY IPF % 3.1Comment: Platelet 1.2 - 10.7 % [facility] count measured by HOSPITAL fluorescence method. LABORATORY NRBC/100 WBC 0.0 0.0 - 10.0 [facility] /100 WBCs [facility] LABORATORY NRBC x10^3 <0.01 10*3/L [facility] LABORATORY GRAN MAT (NEUT) % 49.1 % [facility] LABORATORY IMM GRAN % 0.00 % [facility] LABORATORY LYMPH % 34.4 % [facility] LABORATORY MONO % 12.8 % [facility] LABORATORY EOS % 3.0 % [facility] LABORATORY BASO % 0.7 % [facility] LABORATORY GRAN MAT 1.50 (L) 1.99 - 6.95 [facility] x10^3(ANC) 10*3/uL [facility] LABORATORY IMM GRAN x10^3 <0.03 0.00 - 0.06 [facility] 10*3/uL [facility] LABORATORY LYMPH x10^3 1.05 (L) 1.09 - 3.23 [facility] 10*3/uL [facility] LABORATORY MONO x10^3 0.39 0.36 - 1.02 [facility] 10*3/uL [facility] LABORATORY EOS x10^3 0.09 0.06 - 0.53 [facility] 10*3/uL [facility] LABORATORY BASO x10^3 <0.03 0.01 - 0.09 [facility] 10*3/uL [facility] LABORATORY Specimen Blood - VENOUS Performing Organization Address City/State/Zipcode Phone Number [facility] CLIA: [id number] [place] [address] documented in this encounter Visit Diagnoses Diagnosis Penis pain - Primary Unspecified disorder of penis documented in this encounter Administered Medications Medication Order MAR Action Action Date Dose Rate Site FENTanyl PF (SUBLIMAZE (PF)) Given 10/18/2019 4:51 PM CDT 50 mc g injection 50 mcg 50 mcg, Slow IV Push, ONCE, 1 dose, Mon10/18/19 at 1745, Routine iohexol (OMNIPAQUE 350 BULK-150 mL) Given 10/18/2019 3:50 PM CD T 120 mL injection 120 mL 120 mL, Intravenous, ONCE, 1 dose, Mon10/18/19 at 1600, Routine ketorolac (TORADOL) injection 30 mg Given 10/18/2019 7:54 PM CDT 30 mg 30 mg, Slow IV Push, ONCE, 1 dose, Mon10/18/19 at 2100, Routine, human resources team member approving Restricted medication: JASEN CASTILLO NaCl 0.9% (NS) bolus infusion New Bag 10/18/2019 4:13 PM CDT 1,000 mL 999 mL/hr 1,000 mL at 999 mL/hr, 1,000 mL, IV Infusion, ONCE, 1 dose, Mon10/18/19 at 1530, DEMETRIUS documented in this encounter Additional Health Concerns Infection Onset Date Last Indicated Resolved Time COVID-19 Rule Out 10/18/2019 10/18/2019 10/18/2019 6: 26 PM CDT documented as of this encounter Insurance Payer Benefit Plan / Subscriber ID Effective Dates Phone Addre ss Type Group [facility] [id number] 2019-[place], [place] Agency CHRISTI arguello [id number] Guarantor Name Account Type Relation to Date of Phone Billing Patient Address Tyree Nicole Personal/Family Self 1980 [id number] (Home) [place] [address] documented as of this encounter
--- OUTSIDE RECORDS SUMMARY | 2019-11-27 22:18 | XMS REPORT | Summary of Care ---
:1980 Author Organization [facility] - [facility] Address [address] [place] [id number] Care Team Providers Name Role Phone Pcp, Does Not Have A Primary Care Provider Reason for Referral Radiology Services (STAT) Status Reason Specialty Diagnoses / Referred By Referred To Procedures Contact Contact New Request Diagnostic Diagnoses Foreign body in digestive tract, initial encounter Brooklynn Mckeon Radiology Procedures Abdomen 1 View J, DO [address] [place] [address] Radiology Services (STAT) Status Reason Specialty Diagnoses / Referred By Referred To Procedures Contact Contact New Request Diagnostic Diagnoses Foreign body in digestive tract, initial encounter Brooklynn Mckeon Radiology Procedures XR PELVIS <3 VW J, DO [address] [place] [address] Reason for Visit Reason Comments Foreign Body Auth/Cert Status Reason Specialty Diagnoses / Referred By Referred To Procedures Contact Contact Emergency Medicine [facility] Em ergency Dept [address] [place] [phone] Fax: Encounter Details Date Type Department Care Team Description 10/22/2019 Emergency ADC-Emergency Brooklynn Mckeon, Foreign body in Department DO digestive tract, [address] [place] [address] [place] [address] (Primary Dx) [place] [address] [phone] Allergies Active Allergy Reactions Severity Noted Date Comments Ketorolac Tromethamine Anaphylaxis 10/22/2019 Acetaminophen Anaphylaxis 10/22/2019 documented as of this encounter (statuses as of 10/22/2019) Medications No known medicationsdocumented as of this encounter (statuses as of 10/22/2019) Active Problems Problem Noted Date Swallowed foreign body, initial encounter 12/10/2018 Overview: Added automatically from request for nessa cha [id number] Suicide and self-inflicted injury by cutting and pierc ing instrument, 12/08/2018 initial encounter Trauma of scrotum, initial encounter 12/07/2018 Overview: Added automatically from request for nessa cha [id number] documented as of this encounter (statuses as of 10/22/2019) Social History Tobacco Use Types Packs/Day Years Used Date Former Smoker Smokeless Tobacco: Never Used Sex Assigned at Date Recorded Not on file COVID-19 Exposure Response Date Recorded In the last month, have you been in contact with No / Unsure 10/22/2019 1:36 PM CDT someone who was confirmed or suspected to have Coronavirus / COVID-19? documented as of this encounter Last Filed Vital Signs Vital Sign Reading Time Taken Comments Blood Pressure 108/65 10/22/2019 5:00 PM CDT Pulse 77 10/22/2019 5:00 PM CDT Temperature 36.9 C (98.4 F) 10/22/2019 1:35 PM CDT Respiratory Rate 19 10/22/2019 5:00 PM CDT Oxygen Saturation 99% 10/22/2019 5:00 PM CDT Inhaled Oxygen Concentration - - Weight 69.9 kg (154 lb) 10/22/2019 1:35 PM CDT Height - - Body Mass Index - - documented in this encounter Discharge Instructions Brooklynn Paredes DO - 10/22/2019DIAGNOSIS 1. Swallowed foreign body NO LIFE-THREATENING FINDINGS ON TODAY'S EXAM. PROCEDURES IN THE ER TODAY: Xray abdomen Xray pelvis MEDICATIONS ADMINISTERED IN THE ER TODAY: None YOUR PRESCRIPTIONS AND TWOE-PXR-[id number] MEDICATION RECOMMENDATIONS: None SPECIAL CARE INSTRUCTIONS: Stop swallowing objects FOLLOW-UP RECOMMENDATIONS: RECOMMEND FOLLOW-UP WITH A PRIMARY CARE PROVIDER OR SPECIALIST IN 2-5 DAYS, ESPECIALLY IF NO IMPROVEMENT IN SYMPTOMS. TO FOLLOW-UP WITHIN THE [facility], TRY THESE OPTIONS (CLINIC APPOINTMENTS AVAILABLE ON YDNF-CH-CCOA BASIS): 1. SCHEDULE AN APPOINTMENT ONLINE AT WWW.[facility] 2. OR CALL THE [facility] ACCESS CENTER AT OR 3. OR CALL YOUR [facility] PHYSICIAN'S OFFICE DIRECTLY IF YOU ARE ALREADY AN ESTABLISHED [facility] PATIENT. OR, YOU MAY FOLLOW-UP WITH A PROVIDER OF YOUR CHOICE, SUCH : 1. A PHYSICIAN OF YOUR CHOICE 2. [facility], . LOCATIONS IN [facility] [address]. [facility], [address], [place]; [phone] RETURN TO ER FOR WORSENING OF SYMPTOMS. AttachmentsThe following attachments cannot be sent through Care Everywhere. Swallowed Foreign Body (Adult) (Malay)documented in this encounter ED Notes Haylie Nielsen RN - 10/22/2019 1:30 PM CDT39 year old male coming to for putting a piece of plastic up his penis. Patient also reports swallowing various metal objects yesterday. Patient denies suicidal intentions or ideations. Patient states," I don't want be there, but I just found out I get out in a week." Brooklynn Mckeon DO - 10/22/2019 1:27 PM CDT [facility] Emergency Department Note Patient Name: Tyree Nicole Date of : 1980 39 year old male Treatment Room: [facility] Primary Care Physician: PATIENT DOES NOT HAVE A PCP Patient Escorted by: Law enforcement [8] Mode of Arrival: EMS - [place] [47] EMS Treatment Prior to ED Arrival: Travel and Exposure Screening: Symptoms Does patient have any of these symptoms?: (not recorded) Exposure Screening Has patient had contact with someone with a communicable disease in the last month?: (not recorded) Diseases exposed to:: (not recorded) Is Patient ?: (not recorded) Exposure Date: (not recorded) Chief Complaint: Chief Complaint Patient presents with Foreign Body History of Present Illness: Patient presents for eval for swallowing some things yesterday and shoving a plastic fork up his urethra today. Has not urinated since doing this. Has h/o HCV and HBV. Did the same thing on Mondayand Monday - today is Monday. Was admitted to [facility] on Monday and discharged home on Monday. Here for eval. Past Medical History/Immunizations: History reviewed. No pertinent past medical history. Tetanus received in last 5 years: Unknown Childhood immunizations: Up-to-date Allergies: Allergies Allergen Reactions Toradol [Ketorolac Tromethamine] Anaphylaxis Tylenol [Acetaminophen] Anaphylaxis Past Social History: Tobacco Use Former Smoker. Smokeless Tobacco: Never used smokeless tobacco. Past Surgical History: Past Surgical History: Procedure Laterality Date ESOPHAGOGASTRODUODENOSCOPY N/A 12/08/2018 Surgeon: Lalito Malcolm MD; Location: [facility] OR Location ESOPHAGOGASTRODUODENOSCOPY N/A 12/08/2018 Surgeon: Lalito Malcolm MD; Location: [facility] ([facility]) OR Location SCROTAL EXPLORATION 12/08/2018 SCROTAL EXPLORATION Bilateral 12/08/2018 Surgeon: Choco Martinez MD; Location: [facility] OR Location Review of Systems: Review of Systems Constitutional: Negative for chills and fever. Respiratory: Negative for shortness of breath. Cardiovascular: Negative for chest pain. Gastrointestinal: Negative for abdominal pain, nausea and vomiting. Genitourinary: Negative for dysuria. Musculoskeletal: Negative for arthralgias, neck pain and neck stiffness. Skin: Negative for wound. Neurological: Negative for dizziness. Psychiatric/Behavioral: Negative for agitation. Endocrine: Negative for goiter. Physical Exam: ED Triage Vitals [10/22/19 1335] Weight 69.9 kg (154 lb) Actual or estimated Height BP 119/68 Pulse 50 Resp 20 Temp 36.9 C (98.4 F) Temp source Oral SpO2 100 % Measured on Room air Physical Exam Vitals signs and nursing note reviewed. Constitutional: Appearance: Normal appearance. He is normal weight. Comments: Dried blood spatter to legs HENT: Head: Normocephalic and atraumatic. Neck: Musculoskeletal: Normal range of motion and neck supple. Cardiovascular: Rate and Rhythm: Normal rate. Pulmonary: Effort: Pulmonary effort is normal. No respiratory distress. Musculoskeletal: Normal range of motion. Skin: General: Skin is warm and dry. Neurological: General: No focal deficit present. Mental Status: He is alert and oriented to person, place, and time. Radiology: Hospital Encounter on 10/22/19 XR PELVIS <3 VW Narrative HISTORY: Foreign body intravenous. FINDINGS: 2 AP views of the pelvis are submitted which showed no definite foreign body in the penis. Some small calcifications are seen in the soft tissues which could be within scrotum. Several calcified phleboliths are seen in the lower right side of the pelvis. CONCLUSIONS: No radiopaque foreign body visualized in the penis. Abdomen 1 View Narrative HISTORY: Swallowed foreign bodies. FINDINGS: AP view of the abdomen is obtained and compared with 09/23/2019 study. At least 4 metallic wire type foreign bodies are seen projected over the upper abdomen, right lower quadrant and left midabdomen. It is possible that these are metallic pin wires in all wires are probably in large bowel. Intestinal gas pattern is nonobstructive. CONCLUSIONS: 4 metallic wire type foreign bodies noted projecting both upper and lower abdomen, located probably in large bowel. Lab Results (24h): No results found for this or any previous visit (from the past 24 hour(s)). Orders and Treatments: Orders Placed This Encounter Procedures XR PELVIS <3 VW Abdomen 1 View No orders of the defined types were placed in this encounter. ED COURSE patient presents for eval after swallowing some foreign bodies yesterday and then placing a plasticfork in his urethra today. Has not urinated since doing this. Has h/o HCV and HBV. Did the same thing on Monday and Monday - today is Monday. VSS here in the EC. Has dried blood spatter to legs. Will obtain KUB and pelvis xray. Final dispo pending. 1630 - patient doing well. Tolerating by mouth without difficulty. Able to urinate without difficulty. Xrays as above. Items in intestine appear similar to ones from several days ago and are continuing to move. Stable here in the EC and is ok for discharge back to snf. MDM: Coding Diagnosis/Impression: ICD-10-CM ICD-9-CM 1. Foreign body in digestive tract, initial encounter T18.9XXA [id number] Disposition/Condition: ED Disposition None Discharge Medications: Patient's Medications No medications on file Follow-up: Electronically signed by: Brooklynn Mckeon DO 10/22/2019 1:36 PM documented in this encounter Miscellaneous Notes ED Nurse Note - Haylie Nielsen RN - 10/22/2019 5:15 PM CDTDischarge instructions/prscribed medications reviewed with pt with verbalized understanding. [facility] to [facility]. D Nurse Note - Haylie Nielsen RN - 10/22/2019 5:00 PM CDTPatient able to void 350 ml prior to discharge. Patient awaiting transport back to the snf. D Nurse Note - Haylie Nielsen RN - 10/22/2019 2:44 PM CDTMD informed patient bladder scan 237 ml. documented in this encounter Plan of Treatment Health Maintenance Due Date Last Done Comments VARICELLA VACCINES (1 of 2 - 2-dose childhood series) 06/12/1983 PNEUMOCOCCAL 0-64 YEARS COMBINED SERIES (1 of 3 - 1988 PCV13) Depression Screening 1994 DTaP,Tdap,and Td Vaccines (1 - Tdap) 2001 INFLUENZA VACCINE (#1) 2019 documented as of this encounter Procedures Procedure Name Priority Date/Time Associated Diagnosis Comme nts XR PELVIS <3 VW STAT 10/22/2019 2:16 PM Foreign body in Re sults for this CDT digestive tract, procedure a re in initial encounter the result s section. XR ABDOMEN 1 VW STAT 10/22/2019 2:16 PM Foreign body in Re sults for this CDT digestive tract, procedure a re in initial encounter the result s section. documented in this encounter Results Abdomen 1 View (10/22/2019 2:16 PM CDT) Specimen Narrative Performed At HISTORY: Swallowed foreign bodies. PACS/VR/DOSE FINDINGS: AP view of the abdomen is obta ined and compared with 09/23/2019 study. At least 4 metallic wire type foreign bodies ar e seen projected over the upper abdomen, right lower quadrant and left midab domen. It is possible that these are metallic pin wires in all wires are pro bably in large bowel. Intestinal gas pattern is nonobstructive . CONCLUSIONS: 4 metallic wire type foreig n bodies noted projecting both upper and lower abdomen, located probabl y in large bowel. Procedure Note [facility], Radiant Results Inft User - 2019 2:19 PM CDT HISTORY: Swallowed foreign bodies. FINDINGS: AP view of the abdomen is obta ined and compared with 09/23/2019 study. At least 4 metallic wire type for eign bodies are seen projected over the upper abdomen, right lower quadrant and left midabdomen. It is possible that these are metallic pin wires in all wires are probably in large bowel. Intestinal gas pattern is nonobstructive . CONCLUSIONS: 4 metallic wire type foreig n bodies noted projecting both upper and lower abdomen, located probabl y in large bowel. Performing Organization Address City/State/Zipcode Phone Number PACS/VR/DOSE XR PELVIS <3 VW (10/22/2019 2:16 PM CDT) Specimen Narrative Performed At HISTORY: Foreign body intravenous. PACS/VR/DOSE FINDINGS: 2 AP views of the pelvis are submitted which showed no definite foreign body in the penis. Some small calcifications a re seen in the soft tissues which could be within scrotum. S everal calcified phleboliths are seen in the lower right side of the pelv is. CONCLUSIONS: No radiopaque foreign body visualized in the penis. Procedure Note [facility], Radiant Results Inft User - 2019 2:20 PM CDT HISTORY: Foreign body intravenous. FINDINGS: 2 AP views of the pelvis are s ubmitted which showed no definite foreign body in the penis. Some small ca lcifications are seen in the soft tissues which could be within scrotum. S everal calcified phleboliths are seen in the lower right side of the pelv is. CONCLUSIONS: No radiopaque foreign body visualized in the penis. Performing Organization Address City/State/Zipcode Phone Number PACS/VR/DOSE documented in this encounter Visit Diagnoses Diagnosis Foreign body in digestive tract, initial encounter - Primary documented in this encounter Insurance Payer Benefit Plan / Subscriber ID Effective Dates Phone Addre ss Type Group [facility] [id number] 2019-[place] [id number] (Work) [id number] documented as of this encounter
--- OUTSIDE RECORDS SUMMARY | 2019-11-27 22:18 | XMS REPORT | Summary of Care ---
:1980 Author Organization [facility] Address [address] [place] [address] Care Team Providers Name Role Phone LongtermMaday Primary Care Provider Reason for Referral (DEMETRIUS) Status Reason Specialty Diagnoses / Referred By Referred To Procedures Contact Contact New Request PN-PSYCHIATRY Diagnoses Swallowed foreign body, initial encounter Chikis Gracia Procedures Discharge Follow-Up: Specialty Service PN-PSYCHIATRY; 3-5 Days MD Carmina [address] [place] [address] (Routine) Status Reason Specialty Diagnoses / Referred By Referred To Procedures Contact Contact New Request Diagnoses Swallowed foreign body, initial encounter Chikis Gracia Brazor ia Procedures Discharge Follow-up: PCP [facility]; 3-5 Days MD Carmina [address] [facility] [address] [id number] [place] [address] [facility] Phone: Radiology Services (DEMETRIUS) Status Reason Specialty Diagnoses / Referred By Referred To Procedures Contact Contact New Request Diagnostic Diagnoses Swallowed foreign body, initial encounter Basil, Radiology Procedures XR PELVIS 3+ VW Chikis Grewal MD [address] [place] [phone] Radiology Services (Routine) Status Reason Specialty Diagnoses / Referred By Referred To Procedures Contact Contact New Request Diagnostic Diagnoses Foreign body alimentary tract, initial encounter Basil, Radiology Procedures XR KUB Chikis Grewal MD [address] [place] [phone] Radiology Services (STAT) Status Reason Specialty Diagnoses / Referred By Referred To Procedures Contact Contact New Request Diagnostic Diagnoses Swallowed foreign body, initial encounter Brooklynn Mckeon Radiology Procedures XR PELVIS <3 VW J, DO [address] [place] [address] Radiology Services (STAT) Status Reason Specialty Diagnoses / Referred By Referred To Procedures Contact Contact New Request Diagnostic Diagnoses Swallowed foreign body, initial encounter Brooklynn Mckeon Radiology Procedures Abdomen 1 View J, DO [address] [place] [address] Radiology Services (STAT) Status Reason Specialty Diagnoses / Referred By Referred To Procedures Contact Contact New Request Diagnostic Diagnoses Swallowed foreign body, initial encounter Brooklynn Mckeon Radiology Procedures Chest 1 View J, DO [address] [place] [address] Reason for Visit Reason Comments Foreign Body Auth/Cert Status Reason Specialty Diagnoses / Referred By Referred To Procedures Contact Contact Emergency Medicine [facility] [address] [place] [address] Fax: Encounter Details Date Type Department Care Team Description 10/19/2019 - Hospital Medicine ([facility] 10B) Brooklynn Mckeon, DO [address] [place], [place] [address] Foreign body 10/20/2019 [facility] [address] [place] [address] [id number] [place], [place] [id number] alimentary tract, [place], [place] initial encoun ter [id number] Allergies Active Allergy Reactions Severity Noted Date Comments Codeine Swelling 04/26/2013 Acetaminophen Swelling 10/14/2019 documented as of this encounter (statuses as of 10/20/2019) Medications Medication Sig Dispensed Refills Start Date End Date Status doxycycline Take 1 Cap 20 Cap 0 04/27/2013 10/19/2019 Disco ntinued (VIBRAMYCIN) 100 by mouth 2 (T herapy mg capsule (two) times complet ed) daily. traMADOL (ULTRAM) Take 1 Tab 20 Tab 0 04/27/2013 10/19/2019 Discontinued 50 mg tablet by mouth (Therap y every 6 completed) (six) hours as needed for Pain. Risperidone 0.25 Take by 0 10/20/2019 Di scontinued mg TbDL mouth. traZODone 100 mg Take 150 mg 0 10/20/2019 Discontinued tablet by mouth at bedtime. mirtazapine Take 45 mg 0 10/20/2019 Discon tinued (REMERON) 45 mg by mouth at tablet bedtime. alprazolam (XANAX Take 2 mg by 0 0 Discontinued ORAL) mouth. documented as of this encounter (statuses as of 10/20/2019) Active Problems Problem Noted Date Foreign body alimentary tract, initial encounter 10/18 Pancytopenia documented as of this encounter (statuses as of 10/20/2019) Immunizations Name Administration Dates Next Due Td 10/14/2019 documented as of this encounter Social History Tobacco Use Types Packs/Day Years Used Date Former Smoker 1 1989 - 2009 Smokeless Tobacco: Never Used Tobacco Cessation: Counseling Given: Yes Alcohol Use Drinks/Week oz/Week Comments Yes 49 Cans of beer 49.0 daily every day drinker, 6pac /day Alcohol Habits Answer Date Recorded How often do you have a drink containing 4 or more times a w ewiiaapaayp 10/19/2019 alcohol? How many drinks containing alcohol do you have 5 or 6 10/19/2019 on a typical day when you are drinking? How often do you have six or more drinks on one Daily or rush ost daily 10/19/2019 occasion? Education Answer Date Recorded What is the highest level of school you have completed or 12 th grade 10/19/2019 the highest degree you have received? Sex Assigned at Date Recorded Not on file COVID-19 Exposure Response Date Recorded In the last month, have you been in contact with No / Unsure 10/19/2019 1:00 PM CDT someone who was confirmed or suspected to have Coronavirus / COVID-19? documented as of this encounter Last Filed Vital Signs Vital Sign Reading Time Taken Comments Blood Pressure 103/47 10/20/2019 3:07 PM CDT Pulse 60 10/20/2019 3:07 PM CDT Temperature 36.8 C (98.3 F) 10/20/2019 3:07 PM CDT Respiratory Rate 16 10/20/2019 3:07 PM CDT Oxygen Saturation 100% 10/20/2019 3:07 PM CDT Inhaled Oxygen Concentration - - Weight 72.1 kg (159 lb) 10/19/2019 5:04 PM CDT Height 172.7 cm (5' 8") 10/19/2019 1:11 PM CDT Body Mass Index 24.18 10/19/2019 1:11 PM CDT documented in this encounter Discharge Summaries Ramsey Georges MD - 10/20/2019 12:32 PM CDT [facility] Team Discharge Summary Date of Service: 10/20/2019 ADMIT DATE: 10/19/2019 DISCHARGE DATE: 10/20/2019 ATTENDING MD: Amelia Mari RESIDENT MD: Ramsey Marie PCP: [facility] REASON FOR ADMISSION Abdominal pain & nausea Foreign body ingestion & foreign body placement in urethra FINAL DIAGNOSIS: (the reason, after study, for admitting the patient to the hospital) Abdominal pain & nausea Foreign body ingestion & foreign body placement in urethra SECONDARY DIAGNOSIS: (any diagnosis that, on this admission, required clinical evaluation, therapeutic treatment, diagnostic procedures, extended hospital stay, or additional nursing care/monitoring) Active suicidal ideation H/o depression H/o Schizophrenia Pancytopenia CONSULTING SERVICES: Orders Placed This Encounter CONSULT GENERAL SURGERY CONSULT UROLOGY CONSULT TRAUMA SURGERY CONSULT PSYCHIATRY Discharge Follow-up: PCP [facility]; 3-5 Days PROCEDURES: No orders of the defined types were placed in this encounter. SIGNIFICANT LAB/X-RAYS: Lab results: CBC BMP PT/INR WBC x10^3 (/uL) Date Value 04/27/2013 8.0 WBC (10*3/L) Date Value 10/20/2019 2.41 (L) NA Date Value 10/20/2019 136 mmol/L 04/27/2013 136 MMOL/L No results found for: PT RBC x10^6 (/uL) Date Value 04/27/2013 3.87 (L) RBC (10*6/L) Date Value 10/20/2019 3.61 (L) K Date Value 10/20/2019 4.6 mmol/L 04/27/2013 4.3 MMOL/L INR (no units) Date Value 10/19/2019 1.2 PLT x10^3 (/uL) Date Value 04/27/2013 252 PLT (10*3/L) Date Value 10/20/2019 75 (L) CALCIUM Date Value 10/20/2019 8.6 mg/dL 04/27/2013 8.8 MG/DL HGB Date Value 10/20/2019 11.2 g/dL (L) 04/27/2013 11.3 G/DL (L) CL Date Value 10/20/2019 103 mmol/L 04/27/2013 103 MMOL/L aPTT HCT (%) Date Value 10/20/2019 33.3 (L) 04/27/2013 33.8 (L) BUN Date Value 10/20/2019 11 mg/dL 04/27/2013 17 MG/DL APTT Patient (Seconds) Date Value 10/14/2019 30 CREATININE Date Value 10/20/2019 0.97 mg/dL 04/27/2013 0.85 MG/DL GLUCOSE Date Value 10/20/2019 78 mg/dL 04/27/2013 86 MG/DL CO2 TOTAL Date Value 10/20/2019 31 mmol/L 04/27/2013 25 MMOL/L X-ray results: Abdomen 1 View Result Date: 10/19/2019 1. No acute cardiopulmonary abnormality. 2. Multiple radiopaque foreign bodies projecting over thedistal stomach and the descending colon. No evidence of bowel obstruction. 3. A linear metallic foreign body (a piece of wire) projects over the penile urethra measuring approximately 4.4 cm. Preliminary Report Dictated by Resident: Leonidas Gaines MD., have reviewed this study and agree with the above report. Chest 1 View Result Date: 10/19/2019 1. No acute cardiopulmonary abnormality. 2. Multiple radiopaque foreign bodies projecting over thedistal stomach and the descending colon. No evidence of bowel obstruction. 3. A linear metallic foreign body (a piece of wire) projects over the penile urethra measuring approximately 4.4 cm. Preliminary Report Dictated by Resident: Leonidas Gaines MD., have reviewed this study and agree with the above report. Ct Pelvis W Contrast Result Date: 10/18/2019 Several foreign bodies are identified within the penile urethra extending to the bulbar urethra withsome accentuation of the contrast in the corpus spongiosum around the region of junction of anteriorand posterior urethra concerning for injury. Preliminary Report Dictated by Resident: Shagufta Dong I, Ho Montoya MD., have reviewed this study and agree with the above report. Xr Kub Result Date: 10/20/2019 Impression: Nonobstructive bowel gas pattern. Constipation. Multiple (5) foreign bodies progressing through the bowel loops. Xr Cervical Spine 3 Vw Result Date: 10/18/2019 No acute osseous findings or significant degenerative changes. Xr Pelvis <3 Vw Result Date: 10/19/2019 1. No acute cardiopulmonary abnormality. 2. Multiple radiopaque foreign bodies projecting over thedistal stomach and the descending colon. No evidence of bowel obstruction. 3. A linear metallic foreign body (a piece of wire) projects over the penile urethra measuring approximately 4.4 cm. Preliminary Report Dictated by Resident: Shaila Carlton I, Leonidas Gant MD., have reviewed this study and agree with the above report. Xr Pelvis <3 Vw Result Date: 10/18/2019 Foreign bodies projecting over the expected location of the penile urethra consistent with history of foreign body. Preliminary Report Dictated by Resident: Shaila Carlton I, Amilcra Akbar MD., have reviewed this study and agree with the above report. Xr Pelvis <3 Vw Result Date: 10/14/2019 Densities projecting over the base of the penis in keeping with the history of foreign bodies. Xr Pelvis 3+ Vw Result Date: 10/20/2019 Lower abdominal metallic foreign bodies. Interval removal of penile urethra foreign body. No acute bony abnormality. Radiology study indicated for follow-up? No HOSPITAL COURSE: Tyree Nicoleis a 39 year oldman with PMH of schizophrenia [facility] broken paperclips, and a razorblade (from a hair casandra). He also inserted a plastic fork and paperclip into his urethra at the same time. He reports abdominal pain and nausea, but no vomiting. He denies hematochezia, melena, chest pain, SOB, fever and chills. Pt was a poor historian regarding his medication history, he was not started on any psychiatric medications this hospitalization. A psychiatry consult was placed but patient was not evaluated this weekend as there was no acute psychosis. He was under 24-7 supervision for active suicidal ideation. Urology removed plastic fork piece from the urethra with cystourethroscope. Trauma surgery evaluatedand determined no acute intervention and the patient is stable for discharge. From medical and psychiatric prospective, the patient is appropriate for discharge back to alf with suicide precautions and close follow up with psychiatry. ITEMS FOR FOLLOW UP PROVIDER: (including pending labs/cultures/studies, anticipated problems, etc.) 1. Pt needs to be evaluated by psychiatry DEMETRIUS. He is an inmate, so he is discharged to the criminaljustice system where their psychiatry takes jurisdiction. 2. Requires suicide watch & psych eval per criminal justice psychiatry DEMETRIUS. 3. Requires close observation while eating as he is using plastic utensils for self harm. 4. Recommend psychiatry re-evaluate for medicine reconciliation to on license of [facility] formulary. 5. Recommend outpatient w/u for Pancytopenia FUNCTIONAL STATUS: fully ambulatory DISCHARGE CONDITION: fair COGNITIVE STATUS: oriented x 4 DIET: regular ACTIVITY: as tolerated DISCHARGE MEDICATIONS: Current Discharge Medication List STOP taking these medications alprazolam (XANAX ORAL) 2 mg Comments: Reason for Stopping: mirtazapine (REMERON) 45 mg Comments: Reason for Stopping: Risperidone 0.25 mg TbDL Comments: Reason for Stopping: traZODone (DESYREL) 150 mg Comments: Reason for Stopping: ANTIBIOTICS: Did this patient receive antibiotics during this admission, or is he/sh being discharged with antibiotics? No Was the patient given education on antibiotic indication, duration, and adverse effects? COUMADIN: Is the patient being discharged on coumadin? No.. WOUND CARE: none CODE STATUS: full code OXYGEN (is patient being discharged on oxygen): no CORE MEASURES: None VACCINES: 1. Pneumonia Vaccination> 65 years of age or high risk: PCP 2. Influenza Vaccine >18 years of age: PCP PATIENT EDUCATION PROVIDED: Per criminal justice psychiatry. DISCHARGE: [facility] FOLLOW-UP APPOINTMENT: Discharge Orders Discharge Follow-up: PCP [facility]; 3-5 Days Order Comments: FOLLOW-UP with unit provider in 3-5 days To PCP: [facility] [[id number]] Patient's Preferred Location: Unknown Discharge Disposition: Other-See Comments When (Patients with risk for unplanned readmission score over 16 or those noted as Hospital Dependent should follow up within 7 days with PCP or primary DX specialist): 3-5 Days Risk of Unplanned Readmission:( Score greater than 16 indicates high risk) 11 Regular Diet; Texture: Regular. Texture Regular. Diabetic: No Discharge Condition - Discharge Condition: FAIR Discharge Activity Discharge Activity: As Tolerated Discharge Follow-Up: Specialty Service PN-PSYCHIATRY; 3-5 Days Order Comments: Follow-up with unit psychiatrist DEMETRIUS Specialty: PN-PSYCHIATRY [40] Patient's Preferred Location: Unknown Discharge Disposition: Other-See Comments When (Patients with risk for unplanned readmission score over 16 or those noted as Hospital Dependent should follow up within 7 days with PCP or primary DX specialist): 3-5 Days Risk of Unplanned Readmission:( Score greater than 16 indicates high risk) 11 Discharge Instructions Order Comments: 1. You need to be evaluated by unit psychiatry DEMETRIUS. 2. You should be evaluated by unit provider in 3-5 days. No VTE Prophylaxis given- Patient low risk for VTE; Not ordered during hospitalization PLAN FOR READMISSION: No Please call paging services at [phone] to contact Ramsey Georges MD with any questions. Ramsey Georges M.D., Ph.D. Department of Internal Medicine PGY-1, [place] Team Doctor's Number: [phone] Pager: [phone] Associated attestation - Chikis Gracia MD - 10/20/2019 3:44 PM CDTI personally examined the patient on 10/20/[address] Mtz's resident note as written. I actively participated in the decision-making process. Please see the resident's note for additional details. Chikis Gracia MD 10/20/2019 3:44 PM documented in this encounter Discharge Instructions AttachmentsThe following attachments cannot be sent through Care Everywhere. Abdominal Pain, Adult (Zambian)Vomiting (Adult) (Zambian)Depression,Counseling for (Zambian)Depression: Tips to Help Yourself ([place]ian)Schizoaffective Disorder, Understanding (Zambian)Schizophrenia, Treating ([place]ambian)Swallowed Foreign Body (Adult) (Zambian)Infection, Preventing the Spread of (Zambian) Urinary Tract, Male Anatomy (Zambian)documented in this encounter Progress Notes Kwame Velazquez MD - 10/19/2019 4:04 PM CDTTrauma/Acute Care Surgery Chief Note S: Tyree Nicole is a 39 year old prisoner with a PMH of schizophrenia and depression s/p ingestion of needles and hair clipper at 5 am. Abdominal film shows objects in the stomach and descending colon. VSS, benign exam, no free air. Vitals: Temp: [36.8 C (98.2 F)-36.8 C (98.3 F)] Heart Rate (monitor): [44-59] Pulse: [43-78] Resp: [13-19] BP: (92-110)/(52-62) MAP (mmHg): [63-75] PE: Abdomen: soft, nontender, nd Labs/Imaging: WBC: 3 Abd xray: IMPRESSION 1. No acute cardiopulmonary abnormality. 2. Multiple radiopaque foreign bodies projecting over the distal stomach and the descending colon. No evidence of bowel obstruction. 3. A linear metallic foreign body (a piece of wire) projects over the penile urethra measuring approximately 4.4 cm. A/P: Tyree Nicole is a 39 year old male prisoner with a pmh of depression and schizophrenia s/p foreign body ingestion now in stomach and descending colon. 1. NPO 2. Repeat KUB in am 3. If foreign body in stomach does not pass tomorrow, engage GI for evaluation of upper endoscopy 4. Urology consult for penile foreign body 5. Surgery will continue to follow, call with any questions Patient was discussed with Dr. Kruger who agrees with assessment and plan. Kwame Velazquez MD, [facility] Surgery PGY4 Pgr: [phone] Jordan Springer MD - 10/19/2019 2:20 PM CDTBrief Supplemental Resident H&P CC: Penis and Oral Foreign Body ingestion HPI: PMH of Psychiatric D/o here for foreign body insertion into penis and oral foreign body ingestion. Questionable compliance of his psych meds especially now that he is in alf for misdemeanor. Reports penile and severe abdominal pain. AFVSS. Objective: Abdominal: Severe TTP most prominent in LUQ Urogenital: Severe TTP with Blood at urethral meatus A/P Foreign Body Ingestion Foreign Body Penile Insertion Hx of Schizophrenia, Manic Depression Patient here for foreign body ingestion and foreign body penile insertion, will get surgery serviceson board and control his pain. Repeat imaging as necessary. Will hold psych meds for now in the setting of foreign body ingestion. - Consult Trauma Surgery - Consult Urology - Consult Psychiatry - NPO for possible Surgery - Pain management - Basic Labs Jordan Springer MD Internal Medicine, PGY-2 Pager#[phone] documented in this encounter H&P Notes Ramsey Georges MD - 10/19/2019 1:43 PM CDT MARCO [facility]uevas Admit H&P PCP: [facility] Date of Service: 10/19/2019 CHIEF COMPLAINT: Self-harm (swolling foren obj) HISTORY OF PRESENT ILLNESS Tyree Nicole is a 39 [facility] with a PMH of schizophrenia and depression who presents with abdominal pain after ingesting two needles, broken paperclip and a razorblade at 0530 today. Pt also placed paper clip and hard piece of plastic in his penis at 0530. Pthas been doing these self-harm behaviors since he was a child. It has become worse in the last several years. Per patient, he did this to hurt himself, but also because he wanted a sandwich and the alf wouldn't give him anything. Yesterday he put concrete & hard plastic in his penis and was able to have it removed at the OSH ([facility]) with Scope under conscious sedation. About 5years ago was the last time he swallowed screws, he also had severe pain that time, but did not require surgery. Pt says back in 2008 started getting hypoglycemic when he was using meth very heavily and would passout and end up in the hospital. He is now getting hypoglycemic in alf because they don't give him enough sugar and carbs. He needed IV glucose on 6 days ago in hospital d/t hypoglycemia. Denies drug use in last 5 years but sill every day drinker. Pt has been on psych meds since 11 years old. He is unsure of risperidone does, not taken in last month. Pt endorses previously hearing voices on a daily basis but denies hearing them now. Voices usually tell him to hurt himself. Pt denies HI but endorses SI. Pt reports severe Abd pain nausea, hematuria, denies hematemesis, denies hematochezia, melena, active HCV, ascites, jaundice, f/c, chest pain, SOB. Past medical history: has a past medical history of Depression, Foreign body in penis, Hepatitis B, Hepatitis C, History of swallowed foreign body, and Schizophrenia. Past surgical history: has a past surgical history that includes appendectomy. Social history: reports that he quit smoking about 10 years ago. He started smoking about 30 yearsago. He has a 20.00 pack-year smoking history. He has never used smokeless tobacco. He reports current alcohol use of about 49.0 standard drinks of alcohol per week. He reports current drug use. Drug: A mphetamines. Family history: family history includes Heart in his mother; Kidney failure in his father; [place] (myocardial infarction) in his maternal grandmother. Allergies: Allergies Allergen Reactions Codeine Swelling Tylenol [Acetaminophen] Swelling MEDICATIONS Prior to Admission medications Medication Sig Start Date End Date Taking? Authorizing Provider doxycycline (VIBRAMYCIN) 100 mg capsule Take 1 Cap by mouth 2 (two) times daily. 04/27/13 Katja Michelle MD traMADOL (ULTRAM) 50 mg tablet Take 1 Tab by mouth every 6 (six) hours as needed for Pain. 04/27/13 Katja Michelle MD No current facility-administered medications on file prior to encounter. Current Outpatient Medications on File Prior to Encounter Medication Sig Dispense Refill alprazolam (XANAX ORAL) Take 2 mg by mouth. mirtazapine (REMERON) 45 mg tablet Take 45 mg by mouth at bedtime. traZODone 100 mg tablet Take 150 mg by mouth at bedtime. Risperidone 0.25 mg TbDL Take by mouth. REVIEW OF SYSTEMS (-)=Negative,(+)=Positive General: (+) weight loss 25 lbs 2 months (prv 184 lbs), (+) malaise, (-) fever, (-) chills Skin: (-) rash, (-) lesion HEENT: (+) change in vision - blurry d/t hypoglycemia , (-) headache, (-) change in hearing, (-) sore throat Neck: (-) pain, (-) difficulty swallowing Heme: (-) bleeding disorder Resp: (-) cough, (-) shortness of breath Cardio: (-) chest pain, (-) palpitations GI: (+) abdominal pain, (+) nausea, (-) diarrhea, (-) constipation : (+) hematuria (+) right kidny stone Endo: (-) diabetes Neuro: (-) numbness, (-) tingling, (-) weakness / Left hand thumb numbness 2/2 officer slaming hishand Back: (-) pain, (-)spasms JUAN: (-) muscle pain, (-) joint pain Psych: (+) depression, (+) psychiatric disorder PHYSICAL EXAMINATION Vitals: 10/19/19 0903 10/19/19 1224 10/19/19 1227 10/19/19 1311 BP: 92/52 102/60 BP Location: Left arm Patient Position: Supine Pulse: 58 53 Resp: 16 18 Temp: 36.8 C (98.3 F) TempSrc: Oral SpO2: 99% 98% Weight: Height: 1.727 m (5' 8") General: alert and oriented x 4 (person, place, date/time and situation); no apparent distress, ill-appearing HEENT: pupils equal, round, reactive to light; extraocular movements intact; oropharynx + for lesionsuperior to uvula. moist mucous membranes Neck: supple, no lymphadenopathy, no bruits, no JVD Lungs: clear to auscultation bilaterally Cardio: regular rate and rhythm Abdomen: Soft, diffusely tender worse on LUQ, no rebound, BS+ : penis urethra opening erythematous , some pus appreciated Rectal: not examined Extremities: no clubbing, cyanosis, or edema Skin: no rashes Neuro: cranial nerves II through XII intact except left sided maxillary numbness. LABS - reviewed ertinent labs as below: Labs pending IMAGING - reviewed, pertinent results as below: XR abdomin IMPRESSION 1. No acute cardiopulmonary abnormality. 2. Multiple radiopaque foreign bodies projecting over the distal stomach and the descending colon. No evidence of bowel obstruction. 3. A linear metallic foreign body (a piece of wire) projects over the penile urethra measuring approximately 4.4 cm. XR Chest IMPRESSION 1. No acute cardiopulmonary abnormality. 2. Multiple radiopaque foreign bodies projecting over the distal stomach and the descending colon. No evidence of bowel obstruction. 3. A linear metallic foreign body (a piece of wire) projects over the penile urethra measuring approximately 4.4 cm. XR Pelvis IMPRESSION 1. No acute cardiopulmonary abnormality. 2. Multiple radiopaque foreign bodies projecting over the distal stomach and the descending colon. No evidence of bowel obstruction. 3. A linear metallic foreign body (a piece of wire) projects over the penile urethra measuring approximately 4.4 cm. CHART REVIEW: pertinent information as below: foreign body in penis ED visit 10/17 and 10/13 ASSESSMENT/PLAN Tyree Nicole is a 39 year old male with PMH as listed above, admitted to the hospital with: Abdominal pain & nausea 2/2 foreign body ingestion Foreign body placement in urethra Active suicidal ideation H/o depression H/o Schizophrenia Pt presents with severe Abd pain & penial pain 2/2 foreign body ingested and placed in urethra--confirmed by imaging. Urology & Trauma Surgery consulted, will f/u recommendations. Will obtain basic labs and place the patient NPO. Pt has h/o of psychiatric disorders, psych consulted. Current SI, sitter in place, denies HI/AVH. Meds held 2/2 foreign body ingestion, and patient poor historian, will obtain psych records if necessary. -CBC, CMP, UA -consult trauma surgery -consult urology -consult psychiatry -NPO in setting of foreign body ingestion and possible surgery -pain & nausea meds PRN H/o Hypoglycemia Pt reports hypoglycemic episodes 2/2 not having carbs/sugar -f/u BMP -start POC glucose if BG < 60 -D50 x1 PRN for BG < 60, notify MD ROMO H/o Poly drug use, IV drug use H/o HCV, untreated Stable. -HIV test Pain contorl: Morphine Prophylaxis: DVT- held d/t stomach foreign body Stress Ulcer: no indication for prophylaxis Code Status: addressed: full Ramsey Georges M.D., Ph.D. Department of Internal Medicine PGY-1, [place] Team Doctor's Number: [phone] Pager: [phone] Patient checked out to Norbert Springer MD Will be staffed by Dr. Gracia in the AM Associated attestation - Chikis Gracia MD - 10/20/2019 11:36 AM CDTI personally examined the patient on 10/20/[address] Georges's resident note as written . I actively participated in the decision-making process. Please see the resident's note for additional details. Chikis Gracia MD 10/20/2019 11:36 AM documented in this encounter ED Notes May Esparza RN - 10/19/2019 7:33 AM CDTPatient released yesterday after instilling caulk into his penis. He was transferred to [place] for urology consult and discharged back to [facility]. This morning he showed officers needles in his hands and swallowed them in front of officers. On arrival to ED patient verbalized he swallowed "needles, a razorblade and put a piece of plastic and a broke needle into my urethra". He is berating the officer with him and appears agitated. Brooklynn Lee DO - 10/19/2019 7:30 AM CDT [facility] Emergency Department Note Patient Name: Tyree Nicole Date of : 1980 39 year old male Treatment Room: TX3/TX3 Primary Care Physician: [facility] Patient Escorted by: Self [9] Mode of Arrival: Law enforcement [6] EMS Treatment Prior to ED Arrival: Travel [...] of Present Illness: Patient presents for eval after swallowing some needles and razors today and shoving something inside his urethra. Was seen here yesterday for the same and transferred for urology eval. States since doing this he has been able to urinate. Denies abd pain. No n/v. Was reportedly naked in his cell in alf and kept the items in his rectum and then swallowed them in front of the guards. Here for eval. Past Medical History/Immunizations: Past Medical History: Diagnosis Date Foreign body in penis plastic spoon, caulk, needles Hepatitis B Hepatitis C History of swallowed foreign body razor blades, needles Tetanus received in last 5 years: Yes [...] for goiter. Physical Exam: ED Triage Vitals [10/19/19 0736] Weight 72.6 kg (160 lb) Actual or estimated Estimated by patient/family report Height BP 102/53 Pulse 78 Resp 18 Temp 36.8 C (98.2 F) Temp source Oral SpO2 100 % Measured on Room air Physical Exam Vitals signs and nursing note reviewed. Constitutional: Appearance: Normal appearance. He is normal weight. HENT: Head: Normocephalic and atraumatic. Neck: Musculoskeletal: Normal range of motion and neck supple. Cardiovascular: Rate and Rhythm: Normal rate. Pulmonary: Effort: Pulmonary effort is normal. No respiratory distress. Abdominal: General: Abdomen is flat. There is no distension. Palpations: There is no mass. Tenderness: There is no abdominal tenderness. There is no guarding or rebound. Genitourinary: Penis: Normal. Musculoskeletal: Normal range of motion. Skin: General: Skin is warm and dry. Neurological: General: No focal deficit present. Mental Status: He is alert. Radiology: Hospital Encounter on 10/19/19 XR PELVIS <3 VW Narrative XR CHEST 1 VW XR PELVIS <3 VW XR ABDOMEN 1 VW Comparison: None available History: swallowed foreign bodies Technique: Frontal radiographs Findings: The lungs are clear. No pleural effusion, focal consolidation, or pneumothorax is identified. The cardiomediastinal silhouette is normal in size. Scattered radiopaque foreign bodies are noted including multiple linear densities projecting over the right upper quadrant measuring up to 4 cm with a smaller foreign body in the descending colon measuring 2.2 cm. Multiple metallic densities, likely markel are noted in the right lower quadrant. Nonobstructive bowel gas pattern. A linear metallic foreign body (a piece of wire) projects over the penile urethra measuring approximately 4.4 cm. No acute osseous abnormality is present. Impression 1. No acute cardiopulmonary abnormality. 2. Multiple radiopaque foreign bodies projecting over the distal stomach and the descending colon. No evidence of bowel obstruction. 3. A linear metallic foreign body (a piece of wire) projects over the penile urethra measuring approximately 4.4 cm. Preliminary Report Dictated by Resident: Leonidas Gaines MD., have reviewed this study and agree with the above report. Chest 1 View Narrative XR CHEST 1 VW XR PELVIS <3 VW XR ABDOMEN 1 VW Comparison: None available History: swallowed foreign bodies Technique: Frontal radiographs Findings: The lungs are clear. No pleural effusion, focal consolidation, or pneumothorax is identified. The cardiomediastinal silhouette is normal in size. Scattered radiopaque foreign bodies are noted including multiple linear densities projecting over the right upper quadrant measuring up to 4 cm with a smaller foreign body in the descending colon measuring 2.2 cm. Multiple metallic densities, likely markel are noted in the right lower quadrant. Nonobstructive bowel gas pattern. A linear metallic foreign body (a piece of wire) projects over the penile urethra measuring approximately 4.4 cm. No acute osseous abnormality is present. Impression 1. No acute cardiopulmonary abnormality. 2. Multiple radiopaque foreign bodies projecting over the distal stomach and the descending colon. No evidence of bowel obstruction. 3. A linear metallic foreign body (a piece of wire) projects over the penile urethra measuring approximately 4.4 cm. Preliminary Report Dictated by Resident: Leonidas Gaines MD., have reviewed this study and agree with the above report. Abdomen 1 View Narrative XR CHEST 1 VW XR PELVIS <3 VW XR ABDOMEN 1 VW Comparison: None available History: swallowed foreign bodies Technique: Frontal radiographs Findings: The lungs are clear. No pleural effusion, focal consolidation, or pneumothorax is identified. The cardiomediastinal silhouette is normal in size. Scattered radiopaque foreign bodies are noted including multiple linear densities projecting over the right upper quadrant measuring up to 4 cm with a smaller foreign body in the descending colon measuring 2.2 cm. Multiple metallic densities, likely markel are noted in the right lower quadrant. Nonobstructive bowel gas pattern. A linear metallic foreign body (a piece of wire) projects over the penile urethra measuring approximately 4.4 cm. No acute osseous abnormality is present. Impression 1. No acute cardiopulmonary abnormality. 2. Multiple radiopaque foreign bodies projecting over the distal stomach and the descending colon. No evidence of bowel obstruction. 3. A linear metallic foreign body (a piece of wire) projects over the penile urethra measuring approximately 4.4 cm. Preliminary Report Dictated by Resident: Leonidas Gaines MD., have reviewed this study and [...] Ref Range ABO & RH O Positive COVID-19 (ID NOW RAPID TESTING) Collection Time: 10/18/19 5:46 PM Specimen: NASOPHARYNGEAL SWAB Result Value Ref Range SARS-CoV-2 Rapid ID NOW Not Detected Not Detected Orders and Treatments: Orders Placed This Encounter Procedures Chest 1 View Abdomen 1 View No orders of the defined types were placed in this encounter. ED COURSE patient presents for eval after swallowing needles and razors at alf as well as putting things in his penis. Seen here yesterday for the same and transferred for urology eval. Denies abd pain. Hasbeen able to urinate since placing things in his urethra. VSS here in the EC. Abdomen soft and not tender. Will obtain CXR and KUB. Final dispo pending. 829 - imaging shows foreign bodies in urethra, stomach and colon. Will need transfer for removal. No capacity at [facility]. Will try [facility]. 1000 - patient accepted for admission to [facility]. Stable for transfer. MDM: Coding Diagnosis/Impression: ICD-10-CM ICD-9-CM 1. Swallowed foreign body, initial encounter T18.9XXA [id number] Disposition/Condition: ED Disposition None Discharge Medications: Patient's [...] Follow-up: Electronically signed by: Brooklynn Mckeon DO 10/19/2019 7:49 AM documented in this encounter Miscellaneous Notes Nursing Note - April Dallas RN - 10/20/2019 5:11 PM CDTPatient being discharged with at side. Patient was in good spirit and smiling. Patient denied any thoughts of harm to self or others. ursing Note - April Dallas RN - 10/20/2019 3:05 PM CDTDischarge instructions given to patient and sheriff Ku. Educated patient on the importance to follow up with all physicians as advised including PCPand Psychiatry. Educated patient on the importance of preventing infection by not inserting/swallowing foreign objects. Educated patient on the danger to self by inserting/swallowing the foreign objects. Patient verbalized good understanding of all discharge instruction and the importance of following up as advised. Patient had no questions for nurse at this time. Sheriff Ku at bedside had no questions for nurse at this time. Patient cooperative he states he had no intention of hurting himself at this time. ursing Note - April Dallas RN - 10/20/2019 1:46 PM CDTPatient eating his lunch tray in bed all utensils were counted with patient and to make surethat everything is accounted for after his meal. Patient is cooperative but is upset about being discharged back to alf he states that he wish that they would let him stay in the hospital until he passes the razor after having a bowel movement. Patient states that if he is discharged that he will just come right back to the hospital. Kayode Team Dr. Mtz and Dr. Georges notified of what patient reported to this marine underwriter about coming right back to the hospital. Dr. Georges stated that is to still be discharged. 1355 Spoke to charge nurse Gerri, gearcase assembler Triston and Bassam who were notified that patient was being discharged they all reported that there was no report to be called to the alf they stated that discharge papers would be given to . are Rocio - April Dallas RN - 10/20/2019 11:47 AM CDT Problem: Pain Goal: Reduction in pain sensation Outcome: Progressing as expected Problem: Falls, Risk of Goal: Absence of falls Outcome: Progressing as expected Problem: Discharge Planning Goal: Adequate for discharge Outcome: Progressing as expected Problem: Urinary Elimination - Impaired Goal: Return to baseline elimination pattern Outcome: Progressing as expected TCare Rocio - Caroline Villalobos RN - 10/20/2019 1:47 AM CDT Problem: Pain Goal: Reduction in pain sensation Outcome: Progressing as expected Problem: Falls, Risk of Goal: Absence of falls Outcome: Progressing as expected are Rocio - April Dallas RN - 10/19/2019 12:58 PM CDT Problem: Pain Goal: Reduction in pain sensation Outcome: Progressing as expected Problem: Falls, Risk of Goal: Absence of falls Outcome: Progressing as expected D Nurse Note - Shagufta Perez PCT - 10/19/2019 10:08 [facility] ETA within 20 min. documented in this encounter Plan of Treatment Name Type Priority Associated Diagnoses Order S chedule CBC WITH DIFF LAB Routine EVERY MORNING AT 0400 for 12 Days sta rting 10/20/2019 unti l 10/31/2019, 1 completed EKG-12 LEAD ROUTINE HEART STATION Routine ONCE fo r 1 Occurrences sta rting 10/19/2019 unti l 10/19/2019 BASIC METABOLIC LAB Routine EVERY 48 BACILIO RS (START PANEL (NA, K, CL, TIME ADJUS TABLE) for CO2, GLUCOSE, BUN, [address] ar[address] CREATININE, CA) 10/22/2019 u ntil 10/22/2019 Health Maintenance Due Date Last Done Comments VARICELLA VACCINES (1 of 2 - 06/12/1983 2-dose childhood series) Depression Screening 1994 DTaP,Tdap,and Td Vaccines (1 - 2001 10/14/2019 Tdap) INFLUENZA VACCINE (#1) 2019 PNEUMOCOCCAL 0-64 YEARS COMBINED Aged Out No longer eligible based on SERIES patient's age to complete this topic documented as of this encounter Implants Implanted Type Area Cross Tie Maker Device Identifier Shelf Exp iration Model / Serial Date / Lot Plate PLATE Head documented as of this encounter Procedures Procedure Name Priority Date/Time Associated Comments Diagnosis XR PELVIS 3+ VW DEMETRIUS 10/20/2019 10:23 Swallowed foreign Res ults for this AM CDT body, initial procedure are in encounter the results section. URINALYSIS DEMETRIUS 10/20/2019 4:52 Results for this AM CDT procedure are i n the results section. CBC WITH DIFF Routine 10/20/2019 4:41 Results fo r this AM CDT procedure are i n the results section. BASIC METABOLIC PANEL Routine 10/20/2019 4:41 Re sults for this (NA, K, CL, CO2, AM CDT procedure a re in GLUCOSE, BUN, the results CREATININE, CA) section. MAGNESIUM Routine 10/20/2019 4:41 Results for this AM CDT procedure are i n the results section. XR KUB Routine 10/20/2019 2:46 Foreign body Results for this AM CDT alimentary tract, procedure are in initial encounter the result s section. POCT GLUCOSE Routine 10/19/2019 7:18 Results for this (AUTOMATED) PM CDT procedure are i n the results section. HIV 1/2 AG-AB WITH Routine 10/19/2019 4:07 Resul ts for this REFLEX PM CDT procedure are i n the results section. PROTHROMBIN TIME / DEMETRIUS 10/19/2019 4:07 Resul ts for this INR PM CDT procedure are i n the results section. CBC WITH DIFF DEMETRIUS 10/19/2019 4:07 Results fo r this PM CDT procedure are i n the results section. BASIC METABOLIC PANEL [facility] 10/19/2019 4:07 Re sults for this (NA, K, CL, CO2, PM CDT procedure a re in GLUCOSE, BUN, the results CREATININE, CA) section. HEPATIC FUNCTION DEMETRIUS 10/19/2019 4:07 Results for this PANEL (35302) PM CDT procedure are in (ALB,T.PRO,BILI the results T,BU/BC,ALT,AST,ALK section. PHOS) XR PELVIS <3 VW STAT 10/19/2019 8:15 Swallowed foreign Res ults for this AM CDT body, initial procedure are in encounter the results section. XR CHEST 1 VW STAT 10/19/2019 8:10 Swallowed foreign Resul ts for this AM CDT body, initial procedure are in encounter the results section. XR ABDOMEN 1 VW STAT 10/19/2019 8:10 Swallowed foreign Res ults for this AM CDT body, initial procedure are in encounter the results section. documented in this encounter Results XR PELVIS 3+ VW (10/20/2019 10:23 AM CDT) Specimen Impressions Performed At PACS/VR/DOSE Lower abdominal metallic foreign bodies. Interval removal of penile urethra forei gn body. No acute bony abnormality. Narrative Performed At EXAM: PACS/VR/DOSE XR PELVIS 3+ VW HISTORY: paper clip not removed from penis per pt Can do 1 view COMPARISON: 10/19/2019 FINDINGS: Imaging of the pelvis demonstrates inter adria removal of a linear metallic foreign body from the penile urethra. 2 curvilinear me tallic opacities seen over the lower abdomen along with surgic al clips over the right lower quadrant. No acute bony abnormality is p resent. Alignment of the hip joints, symphysis pubis and sacroiliac j oints is anatomic. Procedure Note [facility], Radiant Results Inft User - 2019 11:18 AM CDT EXAM: XR PELVIS 3+ VW HISTORY: paper clip not removed from penis per pt Can do 1 view COMPARISON: 10/19/2019 FINDINGS: Imaging of the pelvis demonstrates inter adria removal of a linear metallic foreign body from the penile urethra. 2 curvilinear metallic opacities seen over the lower abdomen along with surgic al clips over the right lower quadrant. No acute bony abnormality is p resent. Alignment of the hip joints, symphysis pubis and sacroiliac j oints is anatomic. IMPRESSION Lower abdominal metallic foreign bodies. Interval removal of penile urethra forei gn body. No acute bony abnormality. Performing Organization Address City/State/Zipcode Phone Number PACS/VR/DOSE Urinalysis (10/20/2019 4:52 AM CDT) [facility] APPEARANCE Clear Clear [facility] COLOR Yellow Yellow [facility] PH 6.0 4.8 - 8.0 [facility] SP GRAVITY 1.009 1.003 - 1.030 [facility] GLU U QUAL Normal Normal [facility] BLOOD 1+ (A) Negative [facility] KETONES Negative Negative [facility] PROTEIN Negative Negative [facility] UROBILIN Normal Normal [facility] BILIRUBIN Negative Negative [facility] NITRITE Negative Negative [facility] LEUK FRANK Negative Negative [facility] RBC/HPF 2 0 - 3 HPF [facility] WBC/HPF 1 0 - 5 HPF [facility] BACTERIA Negative Negative [facility] SQ EPITH <1 <=2 HPF [facility] Specimen Urine - URINE, CLEAN CATCH Performing Organization Address City/State/Zipcode Phone Number [facility] CLIA: [id number] [place] [address] [place] [address] BASIC METABOLIC PANEL (NA, K, CL, CO2, GLUCOSE, BUN, CREATININE, CA) (10/20/2019 4:41 AM CDT) [facility] NA 136 135 - 145 mmol/L [facility] K 4.6 3.5 - 5.0 mmol/L [facility] CL 103 98 - 108 mmol/L [facility] CO2 TOTAL 31 23 - 31 mmol/L [facility] AGAP 2 2 - 16 [facility] BUN 11 7 - 23 mg/dL [facility] GLUCOSE 78 70 - 110 mg/dL [facility] CREATININE 0.97 0.60 - 1.25 [facility] mg/dL SERVICES CALCIUM 8.6 8.6 - 10.6 mg/dL [facility] eGFR Calculation 87.1 mL/min/1.73m2 [facility] (Non-) SERVICES eGFR Calculation 105.6 mL/min/1.73m2 [facility] () SERVICES Specimen Blood - ARM, LEFT Narrative Performed At Association of Glomerular Filtration Rate (GFR) and St aging [facility] of Kidney Disease* + + +------- ------ + | GFR (mL/min/1.73 m2) | With Kidney Damage | Wi thout Kidney Damage + + +------- ------ + | >90 | Stage one | Normal + + +------- ------ + | 60-89 | Stage two | Decreased GFR + + +------- ------ + | 30-59 | Stage three | Stage three + + +------- ------ + | 15-29 | Stage four | Stage four + + +------- ------ + | <15 (or dialysis) | Stage five | Stage five + + +------- ------ + *Each stage assumes the associated GFR level has been in effect for at least three months. Stages 1 to 5, wit h or without kidney disease, indicate chronic kidney disease. Notes: Determination of stages one and two (with eGFR >59mL/min/1.73 m2) requires estimation of kidney damag e for at least three months as defined by structural or func tional abnormalities of the kidney, manifested by either: Pathological abnormalities or Markers of kidney damage (including abnormalities in the composition of the blo od or urine or abnormalities in imaging tests) . Performing Organization Address City/State/Zipcode Phone Number [facility] CLIA: [id number] [place] [address] [place] [address] CBC WITH DIFF (10/20/2019 4:41 AM CDT) WBC 2.41 (L) 4.20 - 10.70 [facility] 10*3/L SERVICES RBC 3.61 (L) 4.26 - 5.52 [facility] 10*6/L SERVICES HGB 11.2 (L) 12.2 - 16.4 [facility] g/dL SERVICES HCT 33.3 (L) 38.4 - 49.3 % [facility] MCV 92.2 81.7 - 95.6 [facility] fL SERVICES MCH 31.0 26.1 - 32.7 [facility] pg SERVICES MCHC 33.6 31.2 - 35.0 [facility] g/dL SERVICES RDW-SD 44.5 38.5 - 51.6 [facility] fL SERVICES RDW-CV 13.2 12.1 - 15.4 % [facility] PLT 75 (L) 150 - 328 [facility] 10*3/L SERVICES MPV 10.5 9.8 - 13.0 fL [facility] IPF % 3.2Comment: Platelet 1.2 - 10.7 % [facility] count measured by SERVICES fluorescence method. NRBC/100 WBC 0.0 0.0 - 10.0 [facility] /100 WBCs SERVICES NRBC x10^3 <0.01 10*3/L [facility] GRAN MAT (NEUT) % 39.0 % [facility] IMM GRAN % 0.00 % [facility] LYMPH % 44.0 % [facility] MONO % 12.9 % [facility] EOS % 3.3 % [facility] BASO % 0.8 % [facility] GRAN MAT 0.94 (L) 1.99 - 6.95 [facility] x10^3(ANC) 10*3/uL SERVICES IMM GRAN x10^3 <0.03 0.00 - 0.06 [facility] 10*3/uL SERVICES LYMPH x10^3 1.06 (L) 1.09 - 3.23 [facility] 10*3/uL SERVICES MONO x10^3 0.31 (L) 0.36 - 1.02 [facility] 10*3/uL SERVICES EOS x10^3 0.08 0.06 - 0.53 [facility] 10*3/uL SERVICES BASO x10^3 <0.03 0.01 - 0.09 [facility] 10*3/uL SERVICES Specimen Blood - ARM, LEFT Performing Organization Address City/[facility]/Zipcode Phone Number [facility] CLIA: [id number] [place] [address] [place] [address] Magnesium Serum (10/20/2019 4:41 AM CDT) Pathologist Sig nature MAGNESIUM 1.8 1.7 - 2.4 mg/dL [facility] Specimen Blood - ARM, LEFT Performing Organization Address [facility]/Zipcode Phone Number [facility] CLIA: [id number] [place], [place] [address] [address] [facility] XR KUB (10/20/2019 2:46 AM CDT) Specimen Impressions Performed At Impression: PACS/VR/DOSE Nonobstructive bowel gas pattern. Constipation. Multip le (5) foreign bodies progressing through the bowel loops. Narrative Performed At Exam: XR KUB PACS/VR/DOSE Clinical History: foregin body ingestion Comparison: October 19, 2019 Findings: Supine views of the abdomen and pelvis are compared to the prior study. No evidence of dilated bowel loops. The vis ualized lung bases are clear. Multiple foreign bodies are seen scatter ed in the abdomen with stools in the colon and gas in the rectum. A large amount of stool in the colon suggests constipation. No evidence of or ganomegaly or abnormal calcifications. Procedure Note [facility], Radiant Results Inft User - 2019 12:30 PM CDT Exam: XR KUB Clinical History: foregin body ingestion Comparison: October 19, 2019 Findings: Supine views of the abdomen and pelvis a re compared to the prior study. No evidence of dilated bowel loops. The vis ualized lung bases are clear. Multiple foreign bodies are seen scatter ed in the abdomen with stools in the colon and gas in the rectum. A large amount of stool in the colon suggests constipation. No evidence of or ganomegaly or abnormal calcifications. IMPRESSION Impression: Nonobstructive bowel gas pattern. Consti pation. Multiple (5) foreign bodies progressing through the bowel loops. Performing Organization Address City/State/Zipcode Phone Number PACS/VR/DOSE POCT GLUCOSE (AUTOMATED) (10/19/2019 7:18 PM CDT) Pathologist Sig formerly [facility] POCT GLU 70 70 - 110 mg/dL [facility] Specimen Blood Performing Organization Address City/State/Zipcode Phone Number [facility] CLIA: [id number] [place] [address] [place] [address] HIV 1/2 AG-AB WITH REFLEX (10/19/2019 4:07 PM CDT) Pathologist Sig ham HIV 1/2 Ag-Ab with Negative Negative [facility] Reflex SERVICES HIV Semi-quantitative 0.11 [facility] SERVICES Specimen Blood - ARM, RIGHT Narrative Performed At Non-reactive for HIV-1 antigen and HIV-1/HIV-2 antibod ies. [facility] SERVICES No laboratory evidence of HIV infection. Repeat in 2-4 weeks if acute HIV infection is suspected. Performing Organization Address City/State/Zipcode Phone Number [facility] CLIA: [id number] [place] [address] [place] [address] Prothrombin Time / INR (10/19/2019 4:07 PM CDT) PROTIME PATIENT 13.8 (H) 10.1 - 12.6 [facility] Seconds SERVICES INR 1.2Comment: Normal [facility] INR <1.1; Warfarin SERVICES Therapeutic range 2.0 to 3.0 or 2.5 to 3.5, depending upon the indications. Specimen Blood - ARM, RIGHT Performing Organization Address [facility] Phone Number [facility] CLIA: [id number] [place] [address] [place] [address] HEPATIC FUNCTION PANEL (56279) (ALB,T.PRO,BILI T,BU/BC,ALT,AST,ALK PHOS) (10/19/2019 4:07 PM CDT) Pathologist Sig nature TOTAL BILI 0.2 0.1 - 1.1 mg/dL [facility] SERVICES BILI UNCON 0.3 0.1 - 1.1 mg/dL [facility] SERVICES BILI CONJ 0.0 0.0 - 0.3 mg/dL [facility] SERVICES T PROTEIN 6.3 6.3 - 8.2 g/dL [facility] SERVICES ALBUMIN 3.4 (L) 3.5 - 5.0 g/dL [facility] ALK PHOS 95 34 - 122 U/L [facility] SERVICES ALTv 372 (H) 5 - 50 U/L [facility] SERVICES AST(SGOT) 260 (H) 13 - 40 U/L [facility] SERVICES Specimen Blood - ARM, RIGHT Performing Organization Address City/[facility]/Zipcode Phone Number [facility] CLIA: [id number] [place] [address] [place] [address] BASIC METABOLIC PANEL (NA, K, CL, CO2, GLUCOSE, BUN, CREATININE, CA) (10/19/2019 4:07 PM CDT) Pathologist Sig nature NA 137 135 - 145 mmol/L [facility] SERVICES K 4.6 3.5 - 5.0 mmol/L [facility] SERVICES CL 105 98 - 108 mmol/L [facility] SERVICES CO2 TOTAL 29 23 - 31 mmol/L [facility] AGAP 3 2 - 16 [facility] SERVICES BUN 16 7 - 23 mg/dL [facility] SERVICES GLUCOSE 84 70 - 110 mg/dL [facility] SERVICES CREATININE 0.88 0.60 - 1.25 [facility] mg/dL SERVICES CALCIUM 8.9 8.6 - 10.6 mg/dL [facility] SERVICES eGFR Calculation 97.4 mL/min/1.73m2 [facility] (Non-) SERVICES eGFR Calculation 118.1 mL/min/1.73m2 [facility] () SERVICES Specimen Blood - ARM, RIGHT Narrative Performed At Association of Glomerular Filtration Rate (GFR) and St aging [facility] SERVICES of Kidney Disease* + + +------- ------ + | GFR (mL/min/1.73 m2) | With Kidney Damage | Wi thout Kidney Damage + + +------- ------ + | >90 | Stage one | Normal + + +------- ------ + | 60-89 | Stage two | Decreased GFR + + +------- ------ + | 30-59 | Stage three | Stage three + + +------- ------ + | 15-29 | Stage four | Stage four + + +------- ------ + | <15 (or dialysis) | Stage five | Stage five + + +------- ------ + *Each stage assumes the associated GFR level has been in effect for at least three months. Stages 1 to 5, wit h or without kidney disease, indicate chronic kidney disease. Notes: Determination of stages one and two (with eGFR >59mL/min/1.73 m2) requires estimation of kidney damag e for at least three months as defined by structural or func tional abnormalities of the kidney, manifested by either: Pathological abnormalities or Markers of kidney damage (including abnormalities in the composition of the blo od or urine or abnormalities in imaging tests) . Performing Organization Address City/State/Zipcode Phone Number [facility] CLIA: [id number] [place] [address] [place] [address] CBC WITH DIFF (10/19/2019 4:07 PM CDT) WBC 2.72 (L) 4.20 - 10.70 [facility] 10*3/L SERVICES RBC 3.66 (L) 4.26 - 5.52 [facility] 10*6/L SERVICES HGB 11.2 (L) 12.2 - 16.4 [facility] g/dL SERVICES HCT 33.3 (L) 38.4 - 49.3 % [facility] SERVICES MCV 91.0 81.7 - 95.6 [facility] fL SERVICES MCH 30.6 26.1 - 32.7 [facility] pg SERVICES MCHC 33.6 31.2 - 35.0 [facility] g/dL SERVICES RDW-SD 43.8 38.5 - 51.6 [facility] fL SERVICES RDW-CV 13.2 12.1 - 15.4 % [facility] SERVICES PLT 89 (L) 150 - 328 [facility] 10*3/L SERVICES MPV 10.4 9.8 - 13.0 fL [facility] SERVICES IPF % 4.3Comment: Platelet 1.2 - 10.7 % [facility] count measured by SERVICES fluorescence method. NRBC/100 WBC 0.0 0.0 - 10.0 [facility] /100 WBCs SERVICES NRBC x10^3 <0.01 10*3/L [facility] SERVICES GRAN MAT (NEUT) % 46.0 % [facility] SERVICES IMM GRAN % 0.00 % [facility] SERVICES LYMPH % 40.8 % [facility] SERVICES MONO % 9.6 % [facility] SERVICES EOS % 2.9 % [facility] SERVICES BASO % 0.7 % [facility] SERVICES GRAN MAT 1.25 (L) 1.99 - 6.95 [facility] x10^3(ANC) 10*3/uL SERVICES IMM GRAN x10^3 <0.03 0.00 - 0.06 [facility] 10*3/uL SERVICES LYMPH x10^3 1.11 1.09 - 3.23 [facility] 10*3/uL SERVICES MONO x10^3 0.26 (L) 0.36 - 1.02 [facility] 10*3/uL SERVICES EOS x10^3 0.08 0.06 - 0.53 [facility] 10*3/uL SERVICES BASO x10^3 <0.03 0.01 - 0.09 [facility] 10*3/uL SERVICES Specimen Blood - ARM, RIGHT Performing Organization Address City/State/Zipcode Phone Number [facility] CLIA: [id number] [place], [place] [address] [address] XR PELVIS <3 VW (10/19/2019 8:15 AM CDT) Specimen Impressions Performed At PACS/VR/DOSE 1. No acute cardiopulmonary abnormalit y. 2. Multiple radiopaque foreign bodies projecting ove r the distal stomach and the descending colon. No evidence of bowel obstruction. 3. A linear metallic foreign body (a p iece of wire) projects over the penile urethra measuring approximately 4 .4 cm. Preliminary Report Dictated by Resident: Shaila Carlton I, Leonidas Gant MD., have reviewe d this study and agree with the above report. Narrative Performed At XR CHEST 1 VW PACS/VR/DOSE XR PELVIS <3 VW XR ABDOMEN 1 VW Comparison: None available History: swallowed foreign bodies Technique: Frontal radiographs Findings: The lungs are clear. No pleural effusion , focal consolidation, or pneumothorax is identified. The cardiomediastinal silhouette is norm al in size. Scattered radiopaque foreign bodies are noted including multiple linear densities projecting over the right uppe r quadrant measuring up to 4 cm with a smaller foreign body in the desce nding colon measuring 2.2 cm. Multiple metallic densities, likely stap les are noted in the right lower quadrant. Nonobstructive bowel gas patte rn. A linear metallic foreign body (a piece of wire) proje cts over the penile urethra measuring approximately 4.4 cm. No acute osseous abnormality is present. Procedure Note [facility], Radiant Results Inft User - 2019 8:35 AM CDT XR CHEST 1 VW XR PELVIS <3 VW XR ABDOMEN 1 VW Comparison: None available History: swallowed foreign bodies Technique: Frontal radiographs Findings: The lungs are clear. No pleural effusion , focal consolidation, or pneumothorax is identified. The cardiomediastinal silhouette is norm al in size. Scattered radiopaque foreign bodies are noted including multiple linear densities projecting over the right uppe r quadrant measuring up to 4 cm with a smaller foreign body in the desce nding colon measuring 2.2 cm. Multiple metallic densities, likely stap les are noted in the right lower quadrant. Nonobstructive bowel gas patte rn. A linear metallic foreign body (a piece of wire) projects over the penile urethra measuring approximately 4.4 cm. No acute osseous abnormality is present. IMPRESSION 1. No acute cardiopulmonary abnormality . 2. Multiple radiopaque foreign bodies p rojecting over the distal stomach and the descending colon. No evidence of bowel obstruction. 3. A linear metallic foreign body (a pi veronica of wire) projects over the penile urethra measuring approximately 4 .4 cm. Preliminary Report Dictated by Resident: Leonidas Gaines MD., have reviewed this study and agree with the above report. Performing Organization Address City/State/Zipcode Phone Number PACS/VR/DOSE Abdomen 1 View (10/19/2019 8:10 AM CDT) Specimen Impressions Performed At PACS/VR/DOSE 1. No acute cardiopulmonary abnormalit y. 2. Multiple radiopaque foreign bodies projecting ove r the distal stomach and the descending colon. No evidence of bowel obstruction. 3. A linear metallic foreign body (a p iece of wire) projects over the penile urethra measuring approximately 4 .4 cm. Preliminary Report Dictated by Resident: Leonidas Gaines MD., have reviewe d this study and agree with the above report. Narrative Performed At XR CHEST 1 VW PACS/VR/DOSE XR PELVIS <3 VW XR ABDOMEN 1 VW Comparison: None available History: swallowed foreign bodies Technique: Frontal radiographs Findings: The lungs are clear. No pleural effusion , focal consolidation, or pneumothorax is identified. The cardiomediastinal silhouette is norm al in size. Scattered radiopaque foreign bodies are noted including multiple linear densities projecting over the right uppe r quadrant measuring up to 4 cm with a smaller foreign body in the desce nding colon measuring 2.2 cm. Multiple metallic densities, likely stap les are noted in the right lower quadrant. Nonobstructive bowel gas patte rn. A linear metallic foreign body (a piece of wire) proje cts over the penile urethra measuring approximately 4.4 cm. No acute osseous abnormality is present. Procedure Note [facility], Radiant Results Inft User - 2019 8:35 AM CDT XR CHEST 1 VW XR PELVIS <3 VW XR ABDOMEN 1 VW Comparison: None available History: swallowed foreign bodies Technique: Frontal radiographs Findings: The lungs are clear. No pleural effusion , focal consolidation, or pneumothorax is identified. The cardiomediastinal silhouette is norm al in size. Scattered radiopaque foreign bodies are noted including multiple linear densities projecting over the right uppe r quadrant measuring up to 4 cm with a smaller foreign body in the desce nding colon measuring 2.2 cm. Multiple metallic densities, likely stap les are noted in the right lower quadrant. Nonobstructive bowel gas patte rn. A linear metallic foreign body (a piece of wire) projects over the penile urethra measuring approximately 4.4 cm. No acute osseous abnormality is present. IMPRESSION 1. No acute cardiopulmonary abnormality . 2. Multiple radiopaque foreign bodies p rojecting over the distal stomach and the descending colon. No evidence of bowel obstruction. 3. A linear metallic foreign body (a pi veronica of wire) projects over the penile urethra measuring approximately 4 .4 cm. Preliminary Report Dictated by Resident: Leonidas Gaines MD., have reviewed this study and agree with the above report. Performing Organization Address City/State/Zipcode Phone Number PACS/VR/DOSE Chest 1 View (10/19/2019 8:10 AM CDT) Specimen Impressions Performed At PACS/VR/DOSE 1. No acute cardiopulmonary abnormalit y. 2. Multiple radiopaque foreign bodies projecting ove r the distal stomach and the descending colon. No evidence of bowel obstruction. 3. A linear metallic foreign body (a p iece of wire) projects over the penile urethra measuring approximately 4 .4 cm. Preliminary Report Dictated by Resident: Leonidas Gaines MD., have reviewe d this study and agree with the above report. Narrative Performed At XR CHEST 1 VW PACS/VR/DOSE XR PELVIS <3 VW XR ABDOMEN 1 VW Comparison: None available History: swallowed foreign bodies Technique: Frontal radiographs Findings: The lungs are clear. No pleural effusion , focal consolidation, or pneumothorax is identified. The cardiomediastinal silhouette is norm al in size. Scattered radiopaque foreign bodies are noted including multiple linear densities projecting over the right uppe r quadrant measuring up to 4 cm with a smaller foreign body in the desce nding colon measuring 2.2 cm. Multiple metallic densities, likely stap les are noted in the right lower quadrant. Nonobstructive bowel gas patte rn. A linear metallic foreign body (a piece of wire) proje cts over the penile urethra measuring approximately 4.4 cm. No acute osseous abnormality is present. Procedure Note [facility], Radiant Results Inft User - 2019 8:35 AM CDT XR CHEST 1 VW XR PELVIS <3 VW XR ABDOMEN 1 VW Comparison: None available History: swallowed foreign bodies Technique: Frontal radiographs Findings: The lungs are clear. No pleural effusion , focal consolidation, or pneumothorax is identified. The cardiomediastinal silhouette is norm al in size. Scattered radiopaque foreign bodies are noted including multiple linear densities projecting over the right uppe r quadrant measuring up to 4 cm with a smaller foreign body in the desce nding colon measuring 2.2 cm. Multiple metallic densities, likely stap les are noted in the right lower quadrant. Nonobstructive bowel gas patte rn. A linear metallic foreign body (a piece of wire) projects over the penile urethra measuring approximately 4.4 cm. No acute osseous abnormality is present. IMPRESSION 1. No acute cardiopulmonary abnormality . 2. Multiple radiopaque foreign bodies p rojecting over the distal stomach and the descending colon. No evidence of bowel obstruction. 3. A linear metallic foreign body (a pi veronica of wire) projects over the penile urethra measuring approximately 4 .4 cm. Preliminary Report Dictated by Resident: Shaila Carlton I, Leonidas Gant MD., have reviewed this study and agree with the above report. Performing Organization Address City/State/Zipcode Phone Number PACS/VR/DOSE documented in this encounter Visit Diagnoses Diagnosis Swallowed foreign body, initial encounte r - Primary Foreign body alimentary tract, initial e ncounter Pancytopenia Other pancytopenia documented in this encounter Administered Medications Medication Order MAR Action Action Date Dose Rate Site ondansetron (ZOFRAN (PF)) injection Given 10/19/2019 7:19 PM CD T 4 mg 4 mg 4 mg, Slow IV Push, Q6HPRN, Starting 10/19/19 at 1414, Until Discontinued, Routine, Nausea and Vomiting (N/V) pantoprazole (PROTONIX) 40 mg in NaCl 0.9% Given 10/20/2019 9:2 1 AM CDT 40 mg (NS) 100 mL MINI-BAG 40 mg, IV Piggyback, Q12H, First dose on 10/19/19 at 1930, Until Discontinued, 100 mL Given 10/19/2019 7:58 PM CDT 40 mg Medication Order MAR Action Action Date Dose Rate Site ceFAZolin (ANCEF) 1,000 mg in Given 10/19/2019 7:33 PM CDT 1,00 0 mg NaCl 0.9% (NS) 50 mL MINI-BAG 1,000 mg, IV Piggyback, Q8H ABX, 1 dose, First dose on 10/19/19 at 2015, 50 mL, Reason for Anti-Infective: Empiric Therapy for Suspected Infection, Empiric Therapy Site: Urine, Duration of therapy: 72 hours D5W 0.45% NaCl (1/2NS) IV New Bag 10/20/2019 9:49 AM CDT 1,000 mL 75 mL/hr infusion 1,000 mL at 75 mL/hr, 1,000 mL, IV Infusion, CONTINUOUS, Starting 10/19/19 at 2000, Until 10/20/19 at 0952, Routine New Bag 10/19/2019 9:01 PM CDT 1,000 mL 75 mL/hr diphenhydrAMINE (BENADRYL) injection 25 mg Given 10/19/2019 7:59 PM CDT 25 mg 25 mg, Slow IV Push, ONCE, 1 dose, 10/19/19 at 1945, Routine diphenhydrAMINE (BENADRYL) injection 25 mg Given 10/20/2019 9:32 AM CDT 25 mg 25 mg, Slow IV Push, Q4HPRN, Starting 10/20/19 at 0000, Until 10/20/19 at 0952, Routine, Itching, Prior giving morphine to prevent itchiness Given 10/20/2019 4:27 AM CDT 25 mg Given 10/20/2019 12:03 AM CDT 25 mg lactated ringers IV infusion 500 New Bag 10/19/2019 7:37 PM C DT 500 mL 999 mL/hr mL at 999 mL/hr, 500 mL, IV Infusion, ONCE, 1 dose, 10/19/19 at 2030, STAT lactated ringers IV infusion 500 New Bag 10/19/2019 11:43 PM C DT 500 mL 999 mL/hr mL at 999 mL/hr, 500 mL, IV Infusion, ONCE, 1 dose, 10/20/19 at 0045, STAT morpHINE injection 2 mg Given 10/19/2019 4:09 PM CDT 2 mg 2 mg, Slow IV Push, Q4HPRN, Starting 10/19/19 at 1414, Until 10/19/19 at 1922, Routine, Pain (scale 7-10) morpHINE injection 2 mg Given 10/20/2019 9:21 AM CDT 2 mg 2 mg, Slow IV Push, Q6HPRN, Starting 10/20/19 at 0815, Until 10/20/19 at 0952, Routine, Pain (scale 7-10) morpHINE injection 4 mg Given 10/20/2019 4:27 AM CDT 4 mg 4 mg, Slow IV Push, Q4HPRN, Starting 10/19/19 at 1922, Until 10/20/19 at 0804, Routine, Pain (scale 7-10) Given 10/20/2019 12:03 AM CDT 4 mg Given 10/19/2019 7:32 PM CDT 4 mg documented in this encounter Insurance Payer Benefit Plan / Subscriber ID Effective Dates Phone Addre ss Type Group [facility] [id number] 2019-Marco [place], [place] [id number] documented as of this encounter
== END 2019-11-23 03:35 | disposition home or self-care (01) ==
LOC: ER 02:03
DX: F55.8 Abuse of other non-psychoactive substances (principal); F17.210 Nicotine dependence, cigarettes, uncomplicated
CPT/HCPCS: 36415; 80048; 80076; 80320; 80329; 85025; 85610; 85730; 93005; 96360; 99284; J7030

== ENCOUNTER 2020-08-13 11:57 | Emergency (ER) | payer SELFPAY ==
--- OUTSIDE RECORDS SUMMARY | 2020-08-13 11:59 | XMS REPORT | Continuity of Care Document ---
:1980 Author Organization [facility] t Address [address] [place] [address] Care Team Providers Name Role Phone Rosa Mckeon DO Attending Clinician Antolin Michelle MD Attending Clinician Deondre Vazquez MD Attending Clinician [place] BO Attending Clinician Justin DO Attending Clinician Carmina Gracia MD Attending Clinician Vel AYALA Attending Clinician DO Attending Clinician Prieto KIM Attending Clinician Carmina Gracia MD Admitting Clinician Problems This patient has no known problems. Allergies, Adverse Reactions, Alerts This patient has no known allergies or adverse reactions. Medications This patient has no known medications. Procedures This patient has no known procedures. Encounters Start End Encounter Admission Attending Care Care Encounter Source Date/Time Date/Time Type Type Clinicians Facility Department ID 2020-08-02 2020-08-02 Emergency Mike [facility] [id number] 20:03:00 23:21:00 Brooklynn Atkinson [id number] [place] 4.2.7.2.686 [place] [id number] 2020-04-15 2020-04-15 Emergency Viviana, TRAU[facility] [id number] 14:05:00 19:39:00 Katja S CENTER [id number] [id number] 2020-01-29 2020-01-30 Emergency Dileep Vazquez TRAU[facility] 1.2.840. [id number] 16:54:00 09:03:00 [facility]maikShelbie CENTER [id number] Dileep Vazquez 4.2.7.2.686 [id number] 2019-12-05 2019-12-06 Emergency Justin, TRAUMA [id number] 23:57:00 [facility]17[id number] [id number] 2019-10-22 2019-10-22 [facility] [id number] 13:28:00 17:18:00 Brooklynn Atkinson [id number] [place] 4.2.7.2.686 [place] [id number] 2019-10-19 2019-10-20 [facility] Brooklynn Mckeon [id number] [id number] 07:31:00 17:10:00 [facility] 350.1.13 .10 [facility] [id number] [id number] 2019-10-18 2019-10-18 [facility] [id number] 13:39:00 19:59:00 Brooklynn Atkinson [id number] [place] 4.2.7.2.686 [place] [id number] 2019-10-14 2019-10-14 [facility] [id number] 08:08:00 10:44:00 Gilson Atkinson [id number] [place] 4.2.7.2.686 [place] [id number] 2019-09-23 2019-09-23 Emergency [facility] [id number] 16:54:00 20:50:00 Arash Atkinson [id number] [place] 4.2.7.2.686 [place] [id number] 2019-09-20 2019-09-21 [facility] [id number] 23:56:46 02:02:00 Brian Atkinson [id number] [place] 4.2.7.2.686 [place] [id number] Results This patient has no known results.
[2020-08-13] MEDS ORDERED: ONDANSETRON 4 MG/2 ML VIAL IV PRN (12:49)
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
[2020-08-13 13:34] LABS: Absolute Lymphocytes (CBC) 1.3 K/uL (0.7-4.9); Basophils % 0.7 % (0-1.3); Hematocrit 31.9 % (39.6-49.0); Lymphocytes % 25.8 % (15.3-44.8); MPV 7.7 fL (7.6-11.3); RBC Red Blood Cell Count 3.58 M/uL (4.33-5.43)
[2020-08-13 13:51] LABS: ALT/SGPT 261 U/L (12-78); AST/SGOT 242 U/L (15-37); Albumin 3.3 g/dL (3.4-5.0); Alkaline Phosphatase 98 U/L (45-117); BUN Blood Urea Nitrogen 28 mg/dL (7-18); Bicarbonate 24 mmol/L (21-32); Bilirubin Total 0.4 mg/dL (0.2-1.0); Glucose Level 94 mg/dL (74-106); Lipase 90 U/L (73-393); Potassium 3.6 mmol/L (3.5-5.1); Sodium Level 142 mmol/L (136-145)
[2020-08-13] MEDS ORDERED: NA CHLORIDE 0.9% 1,000 ML IV ONE (14:00)
[2020-08-13] MEDS ORDERED: KETOROLAC 30 MG/ML INJ ONE (15:38)
--- NOTE | 2020-08-13 16:33 | RAD REPORT ---
EXAM DESCRIPTION: RAD - Shoulder Left 2 View - 08/13/2020 3:31 pm CLINICAL HISTORY: PAIN COMPARISON: No comparisons TECHNIQUE: AP internal rotation and scapula Y-views of the left shoulder obtained. FINDINGS: There is no fracture or dislocation. AC joint is normal in appearance. No acute or suspici ous findings. IMPRESSION: Negative two-view left shoulder examination for acute findings.
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
[2020-08-13 17:49] VITALS: TEMP 98.6; O2SAT 100
[2020-08-13 17:50] VITALS: BP 119/82
== END 2020-08-13 17:27 | disposition home or self-care (01) ==
LOC: ER 11:57
DX: S43.492A Other sprain of left shoulder joint, initial encounter (principal); V18.0XXA Pedal cycle driver injured in noncollision transport accident in nontraffic accident, initial encounter
CPT/HCPCS: 36415; 70450; 71250; 72125; 80053; 82010; 83605; 83690; 83930; 85025